=== PATIENT | male | born 1960 | race Hispanic/Latino ===

== ENCOUNTER 2017-03-25 07:07 | Emergency (ER) | payer MEDICARE ==
[~2017-03-25] VITALS: Ht 182.9 cm; Wt 127.0 kg
[~2017-03-25 07:07] MED LIST: ACTOS45 MG PO; ATORVASTATIN CA80 MG PO; CLARITIN10 MG PO; DILAUDID 11 MG/1 ML IV; DILAUDID 22 MG/1 ML IV; FLAGYL500 MG PO; GLYBURIDE-METF1 EAC1 PO; KEFLEX500 MG PO; METFORMIN HCL1000 MG PO; METOPROLOL TART25 MG PO; NITROSTAT0.4 MG SL; PLAVIX75 MG PO; SIMVASTATIN40 MG PO; VANCOMYCIN IV; VASOTEC5 M1 PO; XODOL 5-300 TA1 EACH; mvi PO
[2017-03-25] MEDS ORDERED: ALBUTEROL SULF 0.083% NEB SOLN 3 ML NEB NEB STA (07:59)
[2017-03-25] MEDS ORDERED: IPRATROPIUM BROMIDE 0.02% 2.5 ML NEB NEB ONE (08:00)
[2017-03-25 08:12] LABS: BASOPHILS % 0.6 % (0.0-1.0); EOSINOPHILS # (AUTO) 0.1 (0.0-0.4); EOSINOPHILS % 1.8 % (0.0-6.0); HEMATOCRIT 33.5 % (38.2-49.6); HEMOGLOBIN 10.3 g/dL (14.0-18.0); LYMPHOCYTES # (AUTO) 0.8 (1.0-3.2); LYMPHOCYTES % 16.7 % (18.0-39.1); MEAN CORPUSCULAR HEMOGLOBIN 26.5 pg (28-32); MEAN CORPUSCULAR HGB CONC 30.7 g/dL (31-35); MEAN CORPUSCULAR VOLUME 86.1 fL (81-99); MONOCYTES # (AUTO) 0.6 (0.2-0.8); MONOCYTES % 11.4 % (4.4-11.3); NEUTROPHILS # (AUTO) 3.4 (2.1-6.9); NEUTROPHILS % 69.1 % (38.7-80.0); PLATELET COUNT 192 x10e3/uL (140-360); RED BLOOD COUNT 3.89 x10e6/uL (4.3-5.7); RED CELL DISTRIBUTION WIDTH 15.6 % (11.7-14.4)
[2017-03-25] MEDS ORDERED: METHYLPREDNISOLONE SOD SUCC 125 MG/2ML VIAL IV ONE (08:15)
[2017-03-25 08:16] LABS: INR 0.91; PROTHROMBIN TIME 12.7 seconds (11.9-14.5)
[2017-03-25 08:17] LABS: PARTIAL THROMBOPLASTIN TIME 31.7 seconds (23.8-35.5)
[2017-03-25 08:26] LABS: ALANINE AMINOTRANSFERASE 33 IU/L (0-55); ALBUMIN 3.2 g/dL (3.5-5.0); ALBUMIN/GLOBULIN RATIO 0.7 (0.8-2.0); ALKALINE PHOSPHATASE 97 IU/L (40-150); ANION GAP 14.3 mmol/L (8-16); BLOOD UREA NITROGEN 20 mg/dL (7-26); BUN/CREATININE RATIO 15 (6-25); CARBON DIOXIDE 23 mmol/L (22-29); CHLORIDE 106 mmol/L (98-107); CREATINE KINASE 97 IU/L (30-200); CREATININE, SERUM 1.31 mg/dL (0.72-1.25); EST GLOMERULAR FILTRATION RATE 56 ML/MIN (60-); GLUCOSE 155 mg/dL (74-118); POTASSIUM 4.3 mmol/L (3.5-5.1); SODIUM 139 mmol/L (136-145)
--- NOTE | 2017-03-25 09:51 | Diagnostic Imaging Report ---
PROCEDURE: X-RAY CHEST, TWO VIEWS COMPARISON: 03/13/2013. INDICATIONS: COUGH, WHEEZING FINDINGS: Lung volumes are low with vascular crowding in the lung bases. No gross consolidation, pleural effusion, or pneumothorax. Stable cardiomediastinal contour with mild enlargement of the cardiac silhouette. Pulmonary venous congestion without overt alveolar edema. Multiple median sternotomy wires and mediastinal surgical clips. No acute osseous abnormality. CONCLUSION: Mild cardiomegaly with pulmonary venous congestion. No consolidative pneumonia. Dictated by: Sebastián Stephens M.D. on 03/25/2017 at 9:59 Electronically approved by: Sebastián Stephens M.D. on 03/25/2017 at 9:59
[2017-03-25] MEDS ORDERED: DOXYCYCLINE HYCLATE TABLET 100 MG TAB PO ONE (10:15)
[2017-03-25] MEDS ORDERED: PREDNISONE20 MG PO (10:18)
[2017-03-25] MEDS ORDERED: VENTOLIN HFA18 GM INH (10:18)
[2017-03-25] MEDS ORDERED: DOXYCYCLINE HY100 MG PO (10:18)
[2017-03-25 10:30] VITALS: BP 137/77
== END 2017-03-25 10:44 | disposition home or self-care (01) ==
LOC: ER 07:07
DX: J44.9 Chronic obstructive pulmonary disease, unspecified (principal); I11.0 Hypertensive heart disease with heart failure; I50.9 Heart failure, unspecified; E11.9 Type 2 diabetes mellitus without complications; E66.01 Morbid (severe) obesity due to excess calories; I25.810 Atherosclerosis of coronary artery bypass graft(s) without angina pectoris; Z95.1 Presence of aortocoronary bypass graft
CPT/HCPCS: 36415; 71046; 80053; 82550; 82553; 83605; 83880; 84484; 85025; 85610; 85730; 87040; 87400; 93005; 94640; 99284; J2930

== ENCOUNTER 2017-05-30 07:01 | Emergency (ER) | payer MEDICARE ==
[~2017-05-30] VITALS: Ht 182.9 cm; Wt 129.3 kg
[~2017-05-30 07:01] MED LIST changes: +DOXYCYCLINE HY100 MG PO; +PREDNISONE20 MG PO; +VENTOLIN HFA18 GM INH
--- OUTSIDE RECORDS SUMMARY | 2017-05-30 07:05 | XMS REPORT ---
[facility] Address Unknown Phone Unavailable Care Team Providers Care Store Mgr Name Role Phone MARY YEAGER Unavailable Unavailable Problems This patient has no known problems. Allergies, Adverse Reactions, Alerts This patient has no known allergies or adverse reactions. Medications This patient has no known medications. Encounters Start Date/Time End Date/Time Encounter Type Admission Type Attending Clinicians Care Facility Care Department Encounter ID 2017-05-24 09:24:31 2017-05-24 09:24:31 Outpatient [facility] [id number] 2017-03-29 15:01:27 2017-03-29 15:01:27 Outpatient [facility] [id number] Results Test Description Test Time Test Comments Text Results Atomic Results Result Comments CHEST 2 VIEWS [place] [address] Patient Name: DMITRY ARMSTRONG JR MR #: [id number] : 1960 Age/Sex: 56/M Req #: [id number] Adm Physician: Ordered by: MARY YEAGER MD Report #: [id number] Location: ER Room/Bed: Procedure: [id number] DX/CHEST 2 VIEWS Exam Date: 03/25/17 Exam Time : 0930 REPORT STATUS: Signed PROCEDURE: X-RAY CHEST, TWO VIEWS COMPARISON: 03/13/2013. INDICATIONS: COUGH, WHEEZING FINDINGS: Lung volumes are low with vascular crowding in the lung bases. No gross consolidation, pleural effusion, or pneumothorax. Stable cardiomediastinal contour with mild enlargement of the cardiac silhouette. Pulmonary venous congestion without overt alveolar edema. Multiple median sternotomy wires and mediastinal surgical clips. No acute osseous abnormality. CONCLUSION: Mild cardiomegaly with pulmonary venous congestion. No consolidative pneumonia. Dictated by: Newton Lambert M.D. on 03/25/2017 at 9 :59 Electronically approved by: Newton Lambert M.D. on 03/25/2017 at 9:59 Dictated By: NEWTON LAMBERT MD Transcribed By: SUBHA on 03/25/17958 COPY TO : MARY YEAGER MD
[2017-05-30] MEDS: CLINDAMYCIN PHOS 900MG/ D5W 50 50 ML IV ONE (08:05)
[2017-05-30 08:33] LABS: BASOPHILS % 0.3 % (0.0-1.0); EOSINOPHILS # (AUTO) 0.1 (0.0-0.4); EOSINOPHILS % 1.9 % (0.0-6.0); HEMATOCRIT 27.4 % (38.2-49.6); HEMOGLOBIN 8.4 g/dL (14.0-18.0); LYMPHOCYTES # (AUTO) 0.7 (1.0-3.2); LYMPHOCYTES % 10.6 % (18.0-39.1); MEAN CORPUSCULAR HGB CONC 30.7 g/dL (31-35); MEAN CORPUSCULAR VOLUME 84.8 fL (81-99); MONOCYTES # (AUTO) 0.6 (0.2-0.8); NEUTROPHILS % 77.7 % (38.7-80.0); PLATELET COUNT 257 x10e3/uL (140-360); RED BLOOD COUNT 3.23 x10e6/uL (4.3-5.7); RED CELL DISTRIBUTION WIDTH 15.3 % (11.7-14.4)
[2017-05-30 08:47] LABS: ALBUMIN 2.9 g/dL (3.5-5.0); ALBUMIN/GLOBULIN RATIO 0.7 (0.8-2.0); ANION GAP 11.3 mmol/L (8-16); CALCIUM 8.7 mg/dL (8.4-10.2); CREATININE, SERUM 1.36 mg/dL (0.72-1.25); POTASSIUM 4.3 mmol/L (3.5-5.1)
--- NOTE | 2017-05-30 09:46 | Diagnostic Imaging Report ---
PROCEDURE:X-RAY RIGHT LOWER LEG COMPARISON:None. INDICATIONS:DISTAL LOWER LEG WOUND FINDINGS: Shallow soft tissue defect along the postero-medial lower leg, approximately 5 cm superior to the ankle joint. No cortical erosive or destructive changes of the underlying tibial cortex. There is mild periosteal reaction along the midshaft of the tibia. 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 Osteopenic changes of the talocalcaneal complex. Atherosclerotic vascular calcifications. Stents are noted within the anterior tibial artery and tibioperoneal trunk. CONCLUSION: Shallow soft tissue ulcer along the posteromedial lower leg, without underlying cortical erosive or destructive change. Periosteal reaction along the midshaft of the tibia may relate to chronic venous stasis. MRI of the right lower extremity with and without contrast may be obtained for further evaluation if there is strong clinical concern for chronic osteomyelitis. 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 Advanced atherosclerotic vascular disease. Dictated by: Sebastián Stephens M.D. on 05/30/2017 at 9:46 Electronically approved by: Sebastián Stephens M.D. on 05/30/2017 at 9:46
[2017-05-30 11:11] VITALS: BP 128/65
== END 2017-05-30 11:28 | disposition home or self-care (01) ==
LOC: ER 07:01
DX: L03.115 Cellulitis of right lower limb (principal); I70.238 Atherosclerosis of native arteries of right leg with ulceration of other part of lower leg; L97.819 Non-pressure chronic ulcer of other part of right lower leg with unspecified severity; I10 Essential (primary) hypertension; E11.9 Type 2 diabetes mellitus without complications; Z89.431 Acquired absence of right foot; Z79.02 Long term (current) use of antithrombotics/antiplatelets
CPT/HCPCS: 36415; 80053; 83036; 85025; 86140; 87040; 87071; 87186; 87205; 99284

== ENCOUNTER 2017-07-06 04:31 | Emergency (ER) | payer MEDICARE ==
[~2017-07-06] VITALS: Ht 182.9 cm; Wt 129.3 kg
--- OUTSIDE RECORDS SUMMARY | 2017-07-06 04:36 | XMS REPORT | Continuity of Care Document ---
Author Author [facility] Address [address] [place] [address] Phone Unavailable Care Team Providers Care Deoiling Machine Operator Name Role Phone ESTRELLA KIM MD PCP Insurance Providers Guarantor Caden Armstrong Jr Address [address] [place] [address] Email [email or web address] Payer Medicare A & B Policy Number [id number] Subscriber's Name Caden Armstrong Jr Relationship 18 Self / Same As Patient Effective Date 00 Advance Directives Directive Response Recorded Date/Time Does the patient have an advance directive? Yes 05/21/14 12:08am If yes, is advance directive on file with [facility]? No 10/12/13 2:00pm If not on file with [facility] will patient provide a copy? Yes 10/12/13 2:00pm Do you have a Directive to Physician? No 05/30/17 11:27am Do you have a Medical Power of Block [place]? No 05/30/17 11:27am Do you have an out of hospital Do Not Resuscitate Order? No 05/30/17 11:27am Do you have any special needs we should be aware of? No 05/30/17 11:27am Do you have a support person here with you today? Yes 05/30/17 11:27am Did patient receive Notice of Privacy Practices? Yes 05/30/17 11:27am Did patient receive patient rights and responsibilities? Yes 05/30/17 11:27am Problems Medical Problem Onset Date Status History of diabetic ulcer of foot Unknown Acute Medications Current Home Medications Medication Dose Units Route Directions Days Qty Instructions Start Date Albuterol Sulfate (Ventolin Hfa) 18 Gm Hfa.aer.ad 1-2 Applic Inhalation Q2- 3 Hrs Prn as needed for Shortness Of Breath/Wheezing 1 Unit 03/25/17 Atorvastatin Calcium 80 Mg Tablet 80 Mg Oral Daily Clopidogrel Bisulfate (Plavix) 75 Mg Tablet 75 Mg Oral Daily Doxycycline Hyclate 100 Mg Capsule 100 Mg Oral Twice A Day 20 Tab 03/25/17 Enalapril Maleate (Vasotec) 5 Mg Tablet 5 Mg Oral Twice A Day Glyburide/Metformin Hcl (Glyburide-Metformin 5-500 Mg) 1 Each Tablet 10-1000 Mg Oral Twice Daily With Meals Loratadine (Claritin) 10 Mg Tablet 10 Mg Oral Daily Metoprolol Tartrate 25 Mg Tablet 25 Mg Oral Twice A Day Nitroglycerin (Nitrostat) 0.4 Mg Tab.subl 0.4 Mg Sublingual Every 5 Minutes as needed Pioglitazone Hcl (Actos) 45 Mg Tablet 45 Mg Oral Daily Prednisone 20 Mg Tab 40 Mg Oral Daily 5 Days 10 Tab 03/25/17 Simvastatin 40 Mg Tablet 40 Mg Oral Bedtime Past Home Medications Medication Directions Ordered Status Cephalexin Monohydrate (Keflex) 500 Mg Capsule, 500 Mg Oral Four Times Daily Discontinued Clopidogrel Bisulfate (Plavix) 75 Mg Tablet, 75 Mg Oral Daily Discontinued Hydrocodone Bit/Acetaminophen (Xodol 5-300 Tablet) 1 Each Tablet, As Needed Discontinued Hydromorphone Hcl/Pf (Dilaudid 1 Mg/Ml Ampul) 1 Mg/1 Ml Ampul, 1 Mg Intraven Every 6 Hours as needed Discontinued Hydromorphone Hcl/Pf (Dilaudid 2 Mg/Ml Ampul) 2 Mg/1 Ml Ampul, 2 Mg Intraven Every 6 Hours as needed Discontinued Metformin Hcl 1,000 Mg Tablet, 1000 Mg Oral Twice A Day Discontinued Metronidazole (Flagyl) 500 Mg Tablet, 500 Mg Oral Three Times A Day Discontinued Mvi , 1 Tab Oral Daily Discontinued Vancomycin Hcl (Vancomycin Hcl 1G/200 Ml Bag) 1 G/250 Ml Soln, 1 Gm Intraven Every 12 Hours Discontinued Social History Social History Problem Response Recorded Date/Time Onset Date Status Hx Psychiatric Problems No 10/12/2013 2:00pm Not Applicable Not Applicable Hx Eating Disorder No 10/12/2013 2:00pm Not Applicable Not Applicable Hx Substance Use Disorder No 10/12/2013 2:00pm Not Applicable Not Applicable Hx Depression No 10/12/2013 2:00pm Not Applicable Not Applicable Hx Alcohol Use No 10/12/2013 2:00pm Not Applicable Not Applicable Hx Substance Use Treatment No 10/12/2013 2:00pm Not Applicable Not Applicable Hx Physical Abuse No 10/12/2013 2:00pm Not Applicable Not Applicable Smoking Status Start Date Stop Date Never Smoker Hospital Discharge Instructions No hospital discharge instruction information available. Plan of Care Discharge Date 05/30/17 11:28am Disposition HOME, SELF-CARE Condition at Discharge Stable Instructions/Education Provided Anemia Cellulitis Wound Care (General) Prescriptions See Medication Section Referrals ESTRELLA KIM MD Order Date: Call for an appointment Address: [address] [place] [id number] Additional Instructions/Education Take medication as prescribed Follow up with PCP in 2 days Return to ER if worsening of symptoms Functional Status No functional status information available. Allergies, Adverse Reactions, Alerts No known allergies. Immunizations No immunization information available. Vital Signs Acute Vital Signs Vital Response Date/Time Pulse Pulse Rate (adult) 73 bpm (60 - 90) 05/30/2017 11:11am Respiratory Rate 20 bpm (12 - 24) 05/30/2017 11:11am Blood Pressure 128/65 mm Hg 05/30/2017 11:11am Height 6 ft 0 in 05/30/2017 7:26am Weight 285 lb 05/30/2017 7:26am Body Mass Index 38.7 kg/m^2 05/30/2017 7:26am Results Laboratory Results Test Name Result Units Flags Reference Collection Date/Time Result Date/ Time Comments Prothrombin Time 12.7 seconds 11.9-14.5 03/25/2017 7:55am 03/25/2017 8: 18am Prothromb Time International Ratio 0.91 03/25/2017 7:55am 2017 8:18am Oral Anticoagulant Therapy INR Values: 1. Low Intensity Therapy 1.5 - 2.0 2. Moderate Intensity Therapy 2.0 - 3.0 3. High Intensity Therapy(1) 2.5 - 3.5 4. High Intensity Therapy(2) 3.0 - 4.0 5. Panic Value INR > 5.0 Activated Partial Thromboplast Time 31.7 seconds 23.8-35.5 03/25/2017 7: 55am 03/25/2017 8:18am Influenza Virus Types A,B Antigen NEGATIVE NEGATIVE 03/25/2017 7:35am 03/25/2017 8:55am Lactic Acid Level 11.4 MG/DL 4.5-19.8 03/25/2017 7:55am 03/25/2017 8: 19am B-Type Natriuretic Peptide 363.2 pg/mL H 0-100 03/25/2017 7:55am 2017 8:37am Creatine Kinase 97 IU/L 30-200 03/25/2017 7:55am 03/25/2017 8:28am Creatine Kinase MB 2.00 ng/mL 0.00-5.00 03/25/2017 7:55am 03/25/2017 8: 33am Troponin I 0.029 ng/mL 0-0.300 03/25/2017 7:55am 03/25/2017 8:33am White Blood Count 6.48 x10e3/uL 4.8-10.8 05/30/2017 8:00am 05/30/2017 8 :35am Red Blood Count 3.23 x10e6/uL L 4.3-5.7 05/30/2017 8:00am 05/30/2017 8: 35am Hemoglobin 8.4 g/dL L 14.0-18.0 05/30/2017 8:00am 05/30/2017 8:35am Hematocrit 27.4 % L 38.2-49.6 05/30/2017 8:00am 05/30/2017 8:35am Mean Corpuscular Volume 84.8 fL 81-99 05/30/2017 8:00am 05/30/2017 8: 35am Mean Corpuscular Hemoglobin 26.0 pg L 28-32 05/30/2017 8:00am 2017 8:35am Mean Corpuscular Hemoglobin Concent 30.7 g/dL L 31-35 05/30/2017 8:00am 05/30/2017 8:35am Red Cell Distribution Width 15.3 % H 11.7-14.4 05/30/2017 8:00am 2017 8:35am Platelet Count 257 x10e3/uL 140-360 05/30/2017 8:00am 05/30/2017 8: 35am Neutrophils (%) (Auto) 77.7 % 38.7-80.0 05/30/2017 8:00am 05/30/2017 8: 35am Lymphocytes (%) (Auto) 10.6 % L 18.0-39.1 05/30/2017 8:00am 05/30/2017 8 :35am Monocytes (%) (Auto) 9.0 % 4.4-11.3 05/30/2017 8:00am 05/30/2017 8: 35am Eosinophils (%) (Auto) 1.9 % 0.0-6.0 05/30/2017 8:00am 05/30/2017 8: 35am Basophils (%) (Auto) 0.3 % 0.0-1.0 05/30/2017 8:00am 05/30/2017 8:35am IM GRANULOCYTES % 0.5 % 0.0-1.0 05/30/2017 8:00am 05/30/2017 8:35am Neutrophils # (Auto) 5.0 2.1-6.9 05/30/2017 8:00am 05/30/2017 8:35am Lymphocytes # (Auto) 0.7 L 1.0-3.2 05/30/2017 8:00am 05/30/2017 8: 35am Monocytes # (Auto) 0.6 0.2-0.8 05/30/2017 8:00am 05/30/2017 8:35am Eosinophils # (Auto) 0.1 0.0-0.4 05/30/2017 8:00am 05/30/2017 8:35am Basophils # (Auto) 0.0 0.0-0.1 05/30/2017 8:00am 05/30/2017 8:35am Absolute Immature Granulocyte (auto 0.03 x10e3/uL 0-0.1 05/30/2017 8: 00am 05/30/2017 8:35am Sodium Level 138 mmol/L 136-145 05/30/2017 8:00am 05/30/2017 9:04am Potassium Level 4.3 mmol/L 3.5-5.1 05/30/2017 8:00am 05/30/2017 9:04am Chloride Level 104 mmol/L 98-107 05/30/2017 8:00am 05/30/2017 9:04am Carbon Dioxide Level 27 mmol/L 22-29 05/30/2017 8:00am 05/30/2017 9: 04am Anion Gap 11.3 mmol/L 8-05/30/2017 8:00am 05/30/2017 9:04am Blood Urea Nitrogen 23 mg/dL 7-05/30/2017 8:00am 05/30/2017 9:04am Creatinine 1.36 mg/dL H 0.72-1.25 05/30/2017 8:00am 05/30/2017 9:04am BUN/Creatinine Ratio 17 605/30/2017 8:00am 05/30/2017 9:04am Estimat Glomerular Filtration Rate 54 ML/MIN L 60- 05/30/2017 8:00am 9:04am Ranges were taken from the National Kidney Disease Education Program and the National Kid[employer] Foundation literature. Reference ranges: 60 or greater: Normal 16-59 (for 3 consecutive months): Chronic kidney disease 15 or less: Kidney failure Glucose Level 188 mg/dL H 74-118 05/30/2017 8:00am 05/30/2017 9:04am Calcium Level 8.7 mg/dL 8.4-10.2 05/30/2017 8:00am 05/30/2017 9:04am Hemoglobin A1c Percent 7.5 % H 4.0-7.0 05/30/2017 8:00am 05/30/2017 9: 04am Total Bilirubin 0.5 mg/dL 0.2-1.2 05/30/2017 8:00am 05/30/2017 9:04am Aspartate Amino Transf (AST/SGOT) 17 IU/L 5-34 05/30/2017 8:00am 2017 9:04am Alanine Aminotransferase (ALT/SGPT) 16 IU/L 0-55 05/30/2017 8:00am 9:04am Total Protein 7.1 g/dL 6.5-8.1 05/30/2017 8:00am 05/30/2017 9:04am Albumin 2.9 g/dL L 3.5-5.0 05/30/2017 8:00am 05/30/2017 9:04am Globulin 4.2 g/dL H 2.3-3.5 05/30/2017 8:00am 05/30/2017 9:04am Albumin/Globulin Ratio 0.7 L 0.8-2.0 05/30/2017 8:00am 05/30/2017 9: 04am Alkaline Phosphatase 82 IU/L 40-150 05/30/2017 8:00am 05/30/2017 9: 04am Microbiology Results Procedure Source Organism/Result Collection Date/Time Result Date/Time Result Status Blood Culture Blood NO GROWTH AFTER 5 DAYS, FINAL REPORT 03/25/2017 7:55am 03/30/2017 8:05am Final Procedures Procedure Status Date Provider(s) X-ray of chest, two views Active 03/25/17 MARY YEAGER MD Encounters Encounter Location Arrival/Admit Date Discharge/Depart Date Attending Provider Departed Emergency Room [facility] 05/30/17 7:01am 11:28am STACY ALLISON MD Departed Emergency Room [facility] 03/25/17 7:07am 10:44am MARY YEAGER MD
[2017-07-06 05:31] LABS: BASOPHILS % 0.5 % (0.0-1.0); EOSINOPHILS # (AUTO) 0.1 (0.0-0.4); EOSINOPHILS % 1.4 % (0.0-6.0); HEMOGLOBIN 9.3 g/dL (14.0-18.0); LYMPHOCYTES # (AUTO) 0.4 (1.0-3.2); LYMPHOCYTES % 6.7 % (18.0-39.1); MEAN CORPUSCULAR HEMOGLOBIN 26.1 pg (28-32); MONOCYTES # (AUTO) 0.5 (0.2-0.8); MONOCYTES % 7.8 % (4.4-11.3); NEUTROPHILS # (AUTO) 4.9 (2.1-6.9); NEUTROPHILS % 83.1 % (38.7-80.0); PLATELET COUNT 173 x10e3/uL (140-360); RED BLOOD COUNT 3.57 x10e6/uL (4.3-5.7); RED CELL DISTRIBUTION WIDTH 17.6 % (11.7-14.4)
[2017-07-06 05:53] LABS: ALANINE AMINOTRANSFERASE 16 IU/L (0-55); ALBUMIN 3.3 g/dL (3.5-5.0); ALBUMIN/GLOBULIN RATIO 0.8 (0.8-2.0); ALKALINE PHOSPHATASE 92 IU/L (40-150); ANION GAP 14.4 mmol/L (8-16); BLOOD UREA NITROGEN 25 mg/dL (7-26); BUN/CREATININE RATIO 18 (6-25); CALCIUM 9.1 mg/dL (8.4-10.2); CARBON DIOXIDE 24 mmol/L (22-29); CHLORIDE 104 mmol/L (98-107); CREATINE KINASE 116 IU/L (30-200); EST GLOMERULAR FILTRATION RATE 52 ML/MIN (60-); GLUCOSE 241 mg/dL (74-118); POTASSIUM 4.4 mmol/L (3.5-5.1); SODIUM 138 mmol/L (136-145)
[2017-07-06 05:55] LABS: INFLUENZAE A&B ANTIGEN (RAPID) NEGATIVE (NEGATIVE); STREPTOCOCCUS GRP A ANTIGEN NEGATIVE (NEGATIVE)
--- NOTE | 2017-07-06 05:56 | Diagnostic Imaging Report ---
EXAM: CHEST 2 VIEWS, PA and lateral INDICATION: Cough COMPARISON: None FINDINGS: LINES/TUBES: Right approach PICC terminates at the expected location of the atriocaval junction. LUNGS: No consolidations or edema. PLEURA: No effusions or pneumothorax. HEART AND MEDIASTINUM: Enlargement of the cardiomediastinal silhouette. BONES AND SOFT TISSUES: No acute findings. IMPRESSION: No acute thoracic abnormality. Signed by: Dr. Siobhan Ring M.D. on 07/06/2017 5:52 AM
== END 2017-07-06 06:26 | disposition home or self-care (01) ==
LOC: ER 04:31
DX: R05 Cough (principal); J20.8 Acute bronchitis due to other specified organisms
CPT/HCPCS: 36415; 71046; 80053; 82550; 82553; 83518; 84484; 85025; 87070; 87400; 99284

== ENCOUNTER 2018-08-22 19:52 | Emergency (ER) | payer MEDICARE ==
[~2018-08-22] VITALS: Ht 182.9 cm; Wt 129.3 kg
[2018-08-22 20:56] LABS: BASOPHILS % 0.4 % (0.0-1.0); EOSINOPHILS # (AUTO) 0.1 (0.0-0.4); EOSINOPHILS % 1.5 % (0.0-6.0); HEMATOCRIT 36.4 % (38.2-49.6); LYMPHOCYTES # (AUTO) 1.1 (1.0-3.2); LYMPHOCYTES % 14.6 % (18.0-39.1); MEAN CORPUSCULAR HEMOGLOBIN 26.8 pg (28-32); MEAN CORPUSCULAR VOLUME 81.4 fL (81-99); MONOCYTES # (AUTO) 0.6 (0.2-0.8); MONOCYTES % 7.8 % (4.4-11.3); NEUTROPHILS # (AUTO) 5.5 (2.1-6.9); NEUTROPHILS % 75.3 % (38.7-80.0); PLATELET COUNT 223 x10e3/uL (140-360); RED BLOOD COUNT 4.47 x10e6/uL (4.3-5.7); RED CELL DISTRIBUTION WIDTH 15.3 % (11.7-14.4)
--- NOTE | 2018-08-22 21:12 | Diagnostic Imaging Report ---
EXAMINATION: CHEST SINGLE (PORTABLE) INDICATION: ^ERMD ORDER ^[id number] ^1947 ^Y COMPARISON: 07/06/2017 FINDINGS: AP view TUBES and LINES: There is a lead projecting over the superior left heart, probably a distal lead of left lower chest wall cardiac device. LUNGS: Limited by body habitus. Lungs are well inflated. Central vascular congestion and mild interstitial edema. PLEURA: No pleural effusion or pneumothorax. HEART AND MEDIASTINUM: The cardiac silhouette is enlarged on this AP view. Median sternotomy wires and mediastinal surgical clips are seen. BONES AND SOFT TISSUES: No acute osseous lesion. Degenerative changes of bilateral shoulder joints. Soft tissues are unremarkable. UPPER ABDOMEN: No free air under the diaphragm. IMPRESSION: Enlarged cardiac silhouette, central vascular congestion, and mild interstitial edema. Signed by: Dr. Stu Rodriguez MD on 08/22/2018 9:09 PM
[2018-08-22 21:14] LABS: ALBUMIN 3.5 g/dL (3.5-5.0); ALBUMIN/GLOBULIN RATIO 0.8 (0.8-2.0); ANION GAP 15.5 mmol/L (8-16); CALCIUM 9.5 mg/dL (8.4-10.2); CREATININE, SERUM 2.01 mg/dL (0.72-1.25); POTASSIUM 3.5 mmol/L (3.5-5.1)
[2018-08-22 21:21] LABS: CREATINE KINASE MB 1.6 ng/mL (0-5.0)
[2018-08-22] MEDS ORDERED: FUROSEMIDE INJ 10 MG/ML 4 ML VIAL IV ONE (23:00)
--- NOTE | 2018-08-23 01:37 | Diagnostic Imaging Report ---
Ventilation/perfusion Lung Scan Clinical Information: Difficulty breathing Comparison: CXR single view of the same date Discussion: Xenon-133 in a gaseous state 10.3 mCi was administered via inhalation with an initial wash in, re-breathing equilibrium, and delayed washout images obtained in the posterior projection. Distribution of tracer activity appears physiologic throughout the lungs. There are no segmental ventilatory defects or washout abnormalities to indicate diffuse to regional airways disease. Perfusion images of the lungs were obtained in multiple projections following intravenous administration of approximately 6 mCi of Tc-99m MAA. Distribution of tracer appears physiologic throughout the lungs. The contours of the lungs are well demarcated. There are no segmental perfusion defects of any size. Impression: Scan findings represent a VERY LOW probability for acute pulmonary embolic disease based on the PIOPED II Criteria. Signed by: Dr. Stu Rodriguez MD on 08/23/2018 1:33 AM
[2018-08-23] MEDS ORDERED: LASIX40 MG PO (01:47)
[2018-08-23 02:30] VITALS: BP 116/88
== END 2018-08-23 02:50 | disposition home or self-care (01) ==
LOC: ER 19:52
DX: R06.09 Other forms of dyspnea (principal); I10 Essential (primary) hypertension; E11.9 Type 2 diabetes mellitus without complications; I50.9 Heart failure, unspecified; Z95.1 Presence of aortocoronary bypass graft
CPT/HCPCS: 36415; 71045; 78582; 80053; 82550; 82553; 82948; 83880; 84484; 85025; 85379; 93005; 99284; J1940

== ENCOUNTER 2019-02-05 17:23 | Inpatient (IN) | payer MEDICARE ==
[~2019-02-05] VITALS: Ht 182.9 cm; Wt 129.3 kg
[~2019-02-05 17:23] MED LIST changes: +LASIX40 MG PO
[2019-02-05] MEDS ORDERED: SODIUM CHLORIDE 0.9% 1000ML 1,000 ML IV STA ×3 (18:01→18:22)
[2019-02-05] MEDS ORDERED: PIPER-TAZ 3.375 GM 50 ML IV ONE (18:01)
[2019-02-05] MEDS ORDERED: MORPHINE SULFATE INJ 4 MG/ML INJ 1ML IV ONE (18:01)
[2019-02-05] MEDS ORDERED: FAMOTIDINE 20 MG/2 ML VIAL IV ONE (18:01)
[2019-02-05] MEDS ORDERED: ONDANSETRON HCL INJ 2MG/ML 2ML 2 MG/ML VIAL IV ONE (18:01)
[2019-02-05] MEDS ORDERED: ACETAMINOPHEN 325 MG TAB PO ONE (18:01)
[2019-02-05] MEDS ORDERED: DEXTROSE 50% SYRINGE 50 ML IV PRN (18:15)
[2019-02-05] MEDS ORDERED: ONDANSETRON HCL INJ 2MG/ML 2ML 2 MG/ML VIAL IV PRN (18:15)
[2019-02-05] MEDS ORDERED: VANCOMYCIN 1GM/NS 250 ML 250 ML IV SCH (18:15)
[2019-02-05] MEDS ORDERED: MORPHINE SULFATE 2 MG/ML SYR 1ML IV PRN (18:20)
[2019-02-05] MEDS ORDERED: VANCOMYCIN 1GM/NS 250 ML 250 ML IV ONE (19:00)
[2019-02-05 19:10] LABS: BASOPHILS % 0.3 % (0.0-1.0); EOSINOPHILS # (AUTO) 0.1 (0.0-0.4); EOSINOPHILS % 0.8 % (0.0-6.0); HEMATOCRIT 30.8 % (38.2-49.6); HEMOGLOBIN 9.5 g/dL (14.0-18.0); LYMPHOCYTES # (AUTO) 0.4 (1.0-3.2); LYMPHOCYTES % 5.7 % (18.0-39.1); MEAN CORPUSCULAR HEMOGLOBIN 26.4 pg (28-32); MEAN CORPUSCULAR HGB CONC 30.8 g/dL (31-35); MEAN CORPUSCULAR VOLUME 85.6 fL (81-99); MONOCYTES # (AUTO) 0.4 (0.2-0.8); MONOCYTES % 6.3 % (4.4-11.3); NEUTROPHILS # (AUTO) 5.6 (2.1-6.9); NEUTROPHILS % 86.3 % (38.7-80.0); PLATELET COUNT 197 x10e3/uL (140-360); RED CELL DISTRIBUTION WIDTH 14.3 % (11.7-14.4)
[2019-02-05 19:21] LABS: PARTIAL THROMBOPLASTIN TIME 38.2 seconds (23.8-35.5); PROTHROMBIN TIME 13.7 seconds (11.9-14.5)
[2019-02-05 19:34] LABS: ALBUMIN 2.8 g/dL (3.5-5.0); ALBUMIN/GLOBULIN RATIO 0.6 (0.8-2.0); ANION GAP 11.9 mmol/L (8-16); CALCIUM 8.5 mg/dL (8.4-10.2); CREATININE, SERUM 1.35 mg/dL (0.72-1.25); MAGNESIUM 1.8 MG/DL (1.3-2.1); POTASSIUM 3.9 mmol/L (3.5-5.1)
[2019-02-05 19:53] LABS: CREATINE KINASE MB 9.7 ng/mL (0-5.0); THYROID STIMULATING HORMONE 3.345 uIU/mL (0.350-4.940)
--- NOTE | 2019-02-05 20:39 | Diagnostic Imaging Report ---
EXAM: CHEST SINGLE (PORTABLE) DATE: 02/05/2019 6:01 PM INDICATION: Lower back pain ^ERMD ORDER ^[id number] ^1900 ^Y COMPARISON: Chest x-ray, 08/22/2018 FINDINGS: Lines and tubes: Apparent cardiac lead is again seen projecting over the superior left heart. Position is stable. Cardiac silhouette is at upper normal size. There is mild central pulmonary vascular prominence. No focal consolidation, pleural effusion or pneumothorax. Upper abdomen unremarkable. Wire sternotomy sutures are again noted. IMPRESSION: Borderline heart size with central pulmonary vascular prominence. No consolidation or pleural effusion. Signed by: Dr. Taj Martin M.D. on 02/05/2019 8:35 PM
--- NOTE | 2019-02-05 20:50 | Diagnostic Imaging Report ---
EXAM: CT Abdomen and Pelvis WITHOUT contrast INDICATION: Lower back pain ^STONE PROTOCOL ^[id number] ^1900 ^Y COMPARISON: None. TECHNIQUE: Abdomen and pelvis were scanned utilizing a multidetector helical scanner from the lung base to the pubic symphysis without administration of IV contrast. Absence of intravenous contrast decreases sensitivity for detection of focal lesions and vascular pathology. Coronal and sagittal reformations were obtained. Renal stone protocol was performed. Dose modulation, iterative reconstruction, and/or weight based adjustment of the mA/kV was utilized to reduce the radiation dose to as low as reasonably achievable. IV CONTRAST: None. ORAL CONTRAST: None RADIATION DOSE: Total DLP: 931.90 mGy*cm Estimated effective dose: (DLP x 0.015 x size factor) mSv COMPLICATIONS: None FINDINGS: LINES and TUBES: There is a generator device implanted in the subcutaneous tissues of the lower left chest with an electrode extending anterior to the sternum. There is partial visualization of wire sternotomy sutures. LOWER THORAX: Lung bases are clear. Heart size normal with coronary artery calcifications seen. HEPATOBILIARY: No focal hepatic lesions. No biliary ductal dilation. GALLBLADDER: The gallbladder is distended measuring approximately 12.1 cm in length. A small opaque gallstone is seen as well as layering radiopaque sludge. There is no gallbladder wall thickening or pericholecystic inflammatory change seen. SPLEEN: No splenomegaly. PANCREAS: No focal masses or ductal dilatation. ADRENALS: No adrenal nodules KIDNEYS/URETERS: No hydronephrosis. No cystic or solid contour deforming mass lesions. There are calcifications related to the central portions of both kidneys, mostly vascular. Punctate nonobstructing intrarenal calculi are likely also present. There is mild fat stranding surrounding both kidneys and proximal portions of the ureters. GI TRACT: No abnormal distention, wall thickening, or evidence of bowel obstruction. Appendix is normal. PELVIC ORGANS/BLADDER: There is mild wall thickening of the urinary bladder. No discrete abnormal mass or fluid collection in the pelvis. LYMPH NODES: No dominant lymph node mass is seen in the abdomen, retroperitoneum or pelvis. VESSELS: There is extensive atherosclerotic calcified plaque involving the abdominal aorta and aortic branches. No dilatation of the abdominal aorta. PERITONEUM / RETROPERITONEUM: No pneumoperitoneum or ascites. BONES: No acute or suspicious bony lesions. SOFT TISSUES: Superficial surrounding soft tissue shows a fat-containing midline ventral hernia with a 4.9 cm wall defect in the upper abdomen. IMPRESSION: 1. Cholelithiasis with gallbladder hydrops and mildly radiopaque layering sludge in the gallbladder. No wall thickening or specific evidence for acute cholecystitis. 2. Punctate nonobstructing intrarenal calculi. No hydronephrosis. There is mild fat stranding surrounding both kidneys and proximal ureters, with wall thickening of the bladder. Urinary tract infection is a consideration. 3. There is marked calcific atherosclerotic plaque of the abdominal aorta and all branch vessels in the abdomen. No aortic aneurysm. Staff: Mario Signed by: Dr. Taj Martin M.D. on 02/05/2019 8:46 PM
[2019-02-05] MEDS: INSULIN REGULAR, HUMAN 100 UNIT/1 ML 3ML VIAL SQ SCH (21:27)
[2019-02-05] MEDS: SODIUM CHLORIDE 0.9% 1000ML 1,000 ML IV SCH (21:27)
[2019-02-05] MEDS ORDERED: NITROGLYCERIN 0.4 MG SL PRN (21:45)
[2019-02-05] MEDS ORDERED: ALBUTEROL SULFATE HFA 8GM INHALATION AEROSOL INH PRN (21:45)
[2019-02-05] MEDS ORDERED: NITROGLYCERIN 0.4 MG SUBL SL PRN (22:00)
[2019-02-06] MEDS: ENOXAPARIN SOD INJ 40 MG/0.4 ML SYR SC SCH ×3 (01:30→17:00)
[2019-02-06] MEDS: PIPERACILLIN/TAZO 4.5 GM 100 ML IV SCH ×4 (01:40→21:30)
[2019-02-06 02:36] LABS: BASOPHILS % 0.5 % (0.0-1.0); EOSINOPHILS # (AUTO) 0.1 (0.0-0.4); HEMATOCRIT 28.5 % (38.2-49.6); LYMPHOCYTES # (AUTO) 0.5 (1.0-3.2); MEAN CORPUSCULAR HEMOGLOBIN 26.9 pg (28-32); MEAN CORPUSCULAR HGB CONC 31.6 g/dL (31-35); MEAN CORPUSCULAR VOLUME 85.3 fL (81-99); MONOCYTES # (AUTO) 0.4 (0.2-0.8); MONOCYTES % 8.6 % (4.4-11.3); NEUTROPHILS # (AUTO) 3.2 (2.1-6.9); NEUTROPHILS % 77.2 % (38.7-80.0); PLATELET COUNT 171 x10e3/uL (140-360); RED BLOOD COUNT 3.34 x10e6/uL (4.3-5.7); RED CELL DISTRIBUTION WIDTH 14.5 % (11.7-14.4)
[2019-02-06 03:08] LABS: CREATINE KINASE MB 5.8 ng/mL (0-5.0)
[2019-02-06 03:20] LABS: ANION GAP 10.8 mmol/L (8-16); CREATININE, SERUM 1.29 mg/dL (0.72-1.25); POTASSIUM 3.8 mmol/L (3.5-5.1)
[2019-02-06 03:31] LABS: MAGNESIUM 1.8 MG/DL (1.3-2.1); PHOSPHORUS 3.3 MG/DL (2.3-4.7)
[2019-02-06] MEDS: SODIUM CHLORIDE 0.9% 1000ML 1,000 ML IV SCH ×2 (05:36→10:58)
[2019-02-06] MEDS ORDERED: VANCOMYCIN 1GM/NS 250 ML 250 ML IV SCH (07:00)
[2019-02-06] MEDS ORDERED: INSULIN REGULAR, HUMAN 100 UNIT/1 ML 3ML VIAL IV ONE (07:30)
[2019-02-06 08:00] LABS: BILIRUBIN,URINE NEGATIVE (NEGATIVE); CLARITY,URINE CLEAR (CLEAR); COLOR,URINE YELLOW (YELLOW); KETONES,URINE NEGATIVE (NEGATIVE); LEUKOCYTE ESTERASE ,URINE NEGATIVE (NEGATIVE); NITRITE,URINE NEGATIVE (NEGATIVE); PROTEIN,URINE DIPSTICK NEGATIVE (NEGATIVE); URINE UROBILINOGEN 0.2 mg/dL (0.2 - 1)
[2019-02-06 08:08] LABS: BACTERIA,URINE RARE /HPF; EPITHELIAL CELLS,URINE FEW /LPF; RBC,URINE 0-5 /HPF (0-5); WBC,URINE (MAN) 0-5 /HPF (0-5)
[2019-02-06] MEDS: INSULIN REGULAR, HUMAN 100 UNIT/1 ML 3ML VIAL SQ SCH ×4 (08:28→21:05)
[2019-02-06] MEDS: LORATADINE 10 MG TAB PO SCH (08:49)
[2019-02-06] MEDS: FAMOTIDINE 20 MG/2 ML VIAL IV SCH ×2 (08:49→16:59)
[2019-02-06] MEDS: METOPROLOL TARTRATE 25 MG TAB PO SCH ×2 (08:49→17:00)
[2019-02-06] MEDS: CLOPIDOGREL BISULFATE 75 MG TAB PO SCH (08:49)
[2019-02-06] MEDS: ATORVASTATIN 40 MG TAB PO SCH (08:49)
--- NOTE | 2019-02-06 08:50 | NUR ---
PT HAS WOUND TO RIGHT STUB
[2019-02-06] MEDS ORDERED: NON-FORMULARY MEDICATION (Atorvastatin Calcium 80 MG) PO SCH (09:00)
[2019-02-06 09:25] LABS: CREATINE KINASE MB 3.8 ng/mL (0-5.0)
--- NOTE | 2019-02-06 09:35 | NUR ---
dr malone at pt bedside
--- NOTE | 2019-02-06 10:12 | NUR ---
DR HELMS AT PT BEDSIDE
--- NOTE | 2019-02-06 11:23 | NUR ---
pt states he wants to speak with dr lugo concerning possible surgery before signing consents
--- NOTE | 2019-02-06 11:29 | NUR ---
dr lugo called back and states he will talk with pt again concerning surgery after already having spoken to pt about it and what to expect and explaining to pt that pt had an mi dr lugo said to hold off on signing consents today
--- NOTE | 2019-02-06 12:20 | Progress Note ---
DATE: 02/06/2019 Cardiology Consultation REASON FOR CONSULTATION: NSTEMI. HISTORY OF PRESENT ILLNESS: Mr. Chambers is a 58-year-old man with a history of morbid obesity, coronary artery disease status post four vessel aortocoronary bypass, diabetes mellitus, hypertension, peripheral arterial disease with previous revascularization done several years prior to right lower extremity and status post right TMA versus [place] amputation with wound dehiscence, who presents with malaise, fatigue and reported generalized discomfort. He was noted to have elevated cardiac biomarkers with a peak CK of 109, peak CK-MB of 9.7, trending down and a peak troponin of 2.61, now trending down in the setting of a creatinine of 1.29 and a hemoglobin of 9. He has no other current complaints. REVIEW OF SYSTEMS: A 12-system review is negative except for as noted above. ALLERGIES: NO KNOWN DRUG ALLERGIES. PAST MEDICAL HISTORY: Remarkable for diabetes, hypertension, PVD, CAD, status post ICD. SOCIAL HISTORY: No smoking, alcohol, or drugs. FAMILY HISTORY: Significant for hypertension, heart disease. PHYSICAL EXAMINATION: VITAL SIGNS: Temperature 98.8, heart rate 81, respiratory rate 14, blood pressure 134/68, O2 saturation 98%. GENERAL: In no acute distress, alert. NECK: No JVD. CHEST: Clear to auscultation. CARDIOVASCULAR: Regular rate and rhythm. Normal S1, S2. No S3 or S4. Systolic ejection murmur 1/6. Sternotomy scar. ABDOMEN: Soft, nontender. Bowel sounds positive. EXTREMITIES: Trace edema. Warm distal extremities. Right foot stump covered with dressings. CARDIOVASCULAR MEDICATIONS: Reviewed vancomycin, Lovenox 40 mg subcu q.12 hours, metoprolol tartrate 25 mg b.i.d., atorvastatin 80 mg at bedtime, clopidogrel 75 mg daily, nitroglycerin. LABORATORY STUDIES: Reviewed. White blood cells 4.09, hemoglobin 9 platelets 171. PT 13.7, INR 1, PTT 38.2. Sodium 133, potassium 3.8, chloride 105, bicarbonate 21, BUN 24, creatinine 1.29, glucose 192, calcium 8, magnesium 1.8, phosphorus 3.3. Cardiac biomarkers most recent CK 78, CK-MB 3.8, and troponin I 1.698 and TSH 3.6. Please refer to HPI for peak troponin and cardiac biomarkers. Urine culture and blood cultures are sent and pending. Chest x-ray is remarkable for borderline heart size with central pulmonary vascular congestion. No consolidation or pleural effusion. Cardiac leads noted. CT abdomen with cholelithiasis with gallbladder hydrops and mildly radiopaque layering sludge in the gallbladder. No wall thickening or specific evidence for acute cholecystitis. There is also punctate, nonobstructing intrarenal calculi. No hydronephrosis. There is mild fat stranding surrounding both kidneys and proximal ureters with wall thickening of the bladder, this may represent urine tract infection. There is marked calcific atherosclerotic plaque of the abdominal aorta and all branch vessels in the abdomen. There is no aortic aneurysm. EKG, sinus rhythm with nonspecific repolarization abnormality. ASSESSMENT: 1. Pud-YP-kdeaxbfpn myocardial infarction. 2. Coronary artery disease with history of bypass. 3. Status post cardiac device. 4. Suspect chronic heart failure. The patient is unclear about this. 5. Diabetes and hypertension. 6. Peripheral vascular disease with previous remote revascularization to the right lower extremity, presenting with wound dehiscences of the right foot stump. 7. Malaise, fatigue, concern for underlying infection. RECOMMENDATIONS: 1. Obtain echocardiogram. 2. Monitor cultures for results. 3. Consider ID consultation. 4. Regarding NSTEMI antiplatelets, statin, beta-kal, Lovenox is advised. 5. Coronary angiography and graft angiography and possible intervention discussed with patient on this admission we will make arrangements. Thank you for the opportunity to participate in the care Mr. Chambers. MD DAMEON Hughes/[facility] /[id number]
--- NOTE | 2019-02-06 14:15 | NUR ---
PT RECEIVED FROM ER. YANNA. EDUCATED PT ABOUT FALL PRECAUTIONS. CALL LIGHT WITH IN EASY REACH. INSTRUCTED PT TO USE CALL LIGHT FOR ALL THE NEEDS. PT VERBALIZED UNDERSTANDING. BED IS LOW AND LOCKED. SIDE RAILS X2. BED ALARM IS ON. PT DENIES NEEDS AT THIS TIME.
[2019-02-06 14:30] VITALS: BP 109/50
[2019-02-06 15:45] VITALS: BP 109/50
[2019-02-06 16:58] VITALS: BP 124/80
--- NOTE | 2019-02-06 18:30 | NUR ---
HEART CATH CONSENT NOT SIGNED. PT WILL TALK TO THE DOCTOR BEFORE SIGN THE CONSENT.
--- NOTE | 2019-02-06 19:00 | NUR ---
BEDSIDE SHIFT REPORT GIVEN TO THE ADMINISTRATOR HEALTH CARE FACILITY RN. PT DENIED FURTHER NEEDS.
--- NOTE | 2019-02-06 19:00 | NUR ---
PAGED DR. HELMS REGARDING PT CONSULT.
--- NOTE | 2019-02-06 19:17 | NUR ---
CALL BACK FROM DR. HELMS. NO PROCEDURE FOR TOMORROW. WILL COME AND TALK TO THE PT TOMORROW.
--- NOTE | 2019-02-06 19:25 | NUR ---
Patient received sitting up in bed. AAO x 4 . Patient had no c/o pain. No signs of respiratory distress. IVF infusing at 50 cc/hr. Safety measures implemented. Patient instructed to call for assistance when needed. Call light within reach.
[2019-02-06] MEDS ORDERED: FERROUS SULFAT324 MG (19:54)
[2019-02-06] MEDS ORDERED: LEVEMIR100 UNIT/1 (19:54)
[2019-02-06] MEDS ORDERED: K DUR10 MEQ PO (19:54)
[2019-02-06] MEDS ORDERED: FOLIC ACID0.4 MG (19:54)
[2019-02-06 19:58] LABS: CREATINE KINASE MB 2.1 ng/mL (0-5.0)
[2019-02-06 20:03] VITALS: BP 143/62
--- NOTE | 2019-02-06 20:12 | NUR ---
Dr. Peng paged regarding elevated Troponin level of 1.49. Awaiting call back.
[2019-02-06 21:00] VITALS: BP 143/62
--- NOTE | 2019-02-06 21:40 | NUR ---
Patient's IV on right hand infiltrated. Old IV removed with tip intact. New IV inserted in right forearm 20G. Patient tolerated well.
[2019-02-06] MEDS: VANCOMYCIN 1GM/NS 250 ML 250 ML IV SCH (22:00)
[2019-02-06] MEDS: MORPHINE SULFATE INJ 4 MG/ML INJ 1ML IV PRN (22:21)
[2019-02-07] VITALS (8 sets, daily range): BP systolic 124–149; BP diastolic 56–71
[2019-02-07] MEDS: PIPERACILLIN/TAZO 4.5 GM 100 ML IV SCH ×4 (03:45→21:00)
[2019-02-07 06:14] LABS: ALBUMIN 2.4 g/dL (3.5-5.0); ALBUMIN/GLOBULIN RATIO 0.6 (0.8-2.0); ANION GAP 14.2 mmol/L (8-16); CALCIUM 7.9 mg/dL (8.4-10.2); CREATININE, SERUM 1.27 mg/dL (0.72-1.25); POTASSIUM 4.2 mmol/L (3.5-5.1)
[2019-02-07] MEDS: SODIUM CHLORIDE 0.9% 1000ML 1,000 ML IV SCH (06:42)
[2019-02-07 06:44] LABS: BASOPHILS % 0.5 % (0.0-1.0); EOSINOPHILS # (AUTO) 0.1 (0.0-0.4); EOSINOPHILS % 3.3 % (0.0-6.0); HEMATOCRIT 28.1 % (38.2-49.6); HEMOGLOBIN 8.7 g/dL (14.0-18.0); LYMPHOCYTES # (AUTO) 0.7 (1.0-3.2); LYMPHOCYTES % 18.9 % (18.0-39.1); MEAN CORPUSCULAR HEMOGLOBIN 26.5 pg (28-32); MEAN CORPUSCULAR VOLUME 85.7 fL (81-99); MONOCYTES # (AUTO) 0.5 (0.2-0.8); MONOCYTES % 13.3 % (4.4-11.3); NEUTROPHILS # (AUTO) 2.5 (2.1-6.9); NEUTROPHILS % 63.5 % (38.7-80.0); PLATELET COUNT 138 x10e3/uL (140-360); RED BLOOD COUNT 3.28 x10e6/uL (4.3-5.7); RED CELL DISTRIBUTION WIDTH 14.5 % (11.7-14.4)
[2019-02-07 06:56] LABS: INR 1.06; PROTHROMBIN TIME 14.3 seconds (11.9-14.5)
--- NOTE | 2019-02-07 07:00 | NUR ---
BEDSIDE SHIFT REPORT RECEIVED FROM THE BRAIDING OPERATOR RN. EDUCATED PT ABOUT FALL PRECAUTIONS. CALL LIGHT WITH IN EASY REACH. INSTRUCTED PT TO USE CALL LIGHT FOR ALL THE NEEDS. PT VERBALIZED UNDERSTANDING. BED IS LOW AND LOCKED. SIDE RAILS X2. PT AT BEDSIDE. PT DENIES NEEDS AT THIS TIME.
[2019-02-07] MEDS: INSULIN REGULAR, HUMAN 100 UNIT/1 ML 3ML VIAL SQ SCH ×4 (08:30→21:10)
[2019-02-07] MEDS: ASPIRIN 81 MG CHEW TAB PO SCH (08:38)
[2019-02-07] MEDS: LORATADINE 10 MG TAB PO SCH (08:50)
[2019-02-07] MEDS: ENOXAPARIN SOD INJ 40 MG/0.4 ML SYR SC SCH ×2 (08:50→17:00)
[2019-02-07] MEDS: METOPROLOL TARTRATE 25 MG TAB PO SCH ×2 (08:51→17:00)
[2019-02-07] MEDS: CLOPIDOGREL BISULFATE 75 MG TAB PO SCH (08:51)
[2019-02-07] MEDS: ATORVASTATIN 40 MG TAB PO SCH (08:52)
[2019-02-07] MEDS: FAMOTIDINE 20 MG/2 ML VIAL IV SCH ×2 (08:57→16:59)
[2019-02-07] MEDS: VANCOMYCIN 1GM/NS 250 ML 250 ML IV SCH ×2 (10:31→22:35)
--- NOTE | 2019-02-07 14:59 | NUR ---
WOUND CARE CONSULT 58 YO MALE DIABETIC PATIENT HX OF RT TRANS MET AMPUTATION R/T CHRONIC OSTEO BLOOD CULTURE PENDING LABS: WBC- 4.09,HGB- 9.0, GLUCOSE -163 SKIN ASSESSMENT COMPLETE PATIENT PRESENTS WITH DIABETIC ULCERATION TO RIGHT TMA 2.5CM X 2CM X1.5CM MACERATION TO CALLUS EDGES NOTED WOUND BASE DUSKY RED WITH SEROSANGUINEOUS DRAINAGE RECOMMENDATIONS: NURSING TO MAINTAIN PATIENT ON PROTECTIVE PRESSURE SURFACE NURSING TO CONTINUE TO MAINTAIN CONSERVATIVE PUP STATUS AND BILATERAL HEEL SUSPENSION WITH PILLOWS NURSING TO ASSIST PATIENT OUT OF BED FOR MEALS TOLERATED NURSING TO APPLY DAILY PURACOL AG (COLLAGEN) TO WOUND BASE OF RIGHT TMA ULCERATION Addendum: 02/07/19 at 1509 by Sunil Lee RN Amended: Links added.
--- NOTE | 2019-02-07 15:00 | NUR ---
DR. KIM AT BEDSIDE. INFORMED ABOUT NEWLY ADDED HOME MEDS AND LEVEMIR.
--- NOTE | 2019-02-07 15:24 | Progress Note ---
DATE: 02/07/2019 Cardiology Progress Note SUBJECTIVE: Denies chest pain or shortness of breath. Discussed again coronary graft angiography and possible interventions, indications, alternatives, risks and benefits discussed and provided patient with information. The patient voices understanding. OBJECTIVE: VITAL SIGNS: Temperature 97.3, heart rate 71, respiratory rate 18, blood pressure 129/71, O2 saturation 97%, BMI 38.6. GENERAL: In no acute distress, alert. NECK: No JVD. CHEST: Clear to auscultation. CARDIOVASCULAR: Regular rate and rhythm. Normal S1 and S2. No S3 or S4. No murmurs or rubs. ABDOMEN: Soft, nontender. Bowel sounds positive. EXTREMITIES: No cyanosis or clubbing. There is trace edema. Right foot stump wound covered with dressings. SKIN: Sternotomy scar. CARDIOVASCULAR MEDICATIONS: Reviewed. Lovenox 40 mg b.i.d., metoprolol tartrate 25 mg b.i.d., atorvastatin 80 mg at bedtime, clopidogrel 75 mg daily, aspirin 81 mg daily, vancomycin and Zosyn. LABORATORY STUDIES: Reviewed. Sodium 137, potassium 4.2, chloride 108, bicarbonate 19, BUN 20, creatinine 1.2, glucose 222. White blood cells 3.9, hemoglobin 8.7, platelets 138, PT 14.3, PTT 37. INR 1.06. AST 16, ALT 13, alkaline phosphatase 88, total bilirubin 0.4. ASSESSMENT AND PLAN: 1. A 58-year-old man presents with Qqj-GY-ctzvbfthg myocardial infarction. 2. Acute on chronic systolic heart failure, status post implantable cardioverter-defibrillator. 3. Hypertension and dyslipidemia. 4. Peripheral arterial disease with right foot stump wound dehiscences. 5. Anemia. 6. Chronic kidney disease. RECOMMENDATIONS: Hold Lovenox after tonight's dose in preparation for coronary angiogram. I have discussed with laborer adjustable steel joist and placed the patient on schedule for tomorrow early p.m. early breakfast okay. Keep n.p.o. after 7 a.m. Continue rest of cardiovascular medications. Jan Yuen MD AFNya/MODCorbin /[id number]
--- NOTE | 2019-02-07 18:00 | NUR ---
CALL RECEIVED FROM DR. SOLOMON. START NS @ 60 ML/ HR FROM MIDNIGHT PER THE
--- NOTE | 2019-02-07 19:00 | NUR ---
BEDSIDE SHIFT REPORT GIVEN TO THE CLINICAL EDUCATION ACADEMIC COORDINATOR RN. PT DENIED FURTHER NEEDS.
--- NOTE | 2019-02-07 19:20 | NUR ---
Patient received lying in bed. No acute distress noted. Patient instructed of NPO status after breakfast (02/08) for upcoming procedure. Patient verbalized understanding.
[2019-02-07] MEDS: MORPHINE SULFATE INJ 4 MG/ML INJ 1ML IV PRN (20:18)
[2019-02-08] VITALS (15 sets, daily range): BP systolic 115–166; BP diastolic 5–90
[2019-02-08] MEDS: PIPERACILLIN/TAZO 4.5 GM 100 ML IV SCH ×4 (03:06→22:39)
[2019-02-08 05:58] LABS: CALCIUM 8.1 mg/dL (8.4-10.2); CREATININE, SERUM 1.25 mg/dL (0.72-1.25)
--- NOTE | 2019-02-08 06:35 | NUR ---
IV on right arm infiltrated. Old IV removed with tip intact. New IV inserted in right forearm 20 G. Patient tolerated well.
[2019-02-08] MEDS: SODIUM CHLORIDE 0.9% 1000ML 1,000 ML IV SCH ×2 (07:00→15:00)
--- NOTE | 2019-02-08 07:00 | NUR ---
Patient resting comfortably. Shift report given to oncoming nurse.
--- NOTE | 2019-02-08 07:06 | NUR ---
Received patient lying in bed with eyes open. Respiration even and unlabored without SOB. Call light in reach.
[2019-02-08] MEDS: INSULIN REGULAR, HUMAN 100 UNIT/1 ML 3ML VIAL SQ SCH ×4 (08:29→21:00)
[2019-02-08] MEDS: ASPIRIN 81 MG CHEW TAB PO SCH (08:30)
[2019-02-08] MEDS: FAMOTIDINE 20 MG/2 ML VIAL IV SCH ×2 (08:30→17:00)
[2019-02-08] MEDS: LORATADINE 10 MG TAB PO SCH (08:30)
[2019-02-08] MEDS: ATORVASTATIN 40 MG TAB PO SCH (08:30)
[2019-02-08] MEDS: METOPROLOL TARTRATE 25 MG TAB PO SCH (08:31)
[2019-02-08] MEDS: CLOPIDOGREL BISULFATE 75 MG TAB PO SCH (08:31)
[2019-02-08] MEDS: VANCOMYCIN 1GM/NS 250 ML 250 ML IV SCH (11:22)
--- NOTE | 2019-02-08 17:00 | Progress Note ---
DATE: 02/08/2019 Cardiology Progress Note SUBJECTIVE: Denies any chest pain or shortness of breath. Has no complaints this morning. OBJECTIVE: VITAL SIGNS: Temperature 97.7, heart rate 73, blood pressure 164/81, respiratory rate 19, O2 saturation 98%. BMI 38.6. GENERAL: In no acute distress. Alert. NECK: No JVD. CHEST: Clear to auscultation. CARDIOVASCULAR: Regular rate and rhythm. Normal S1 and S2. Systolic ejection murmur. ABDOMEN: Soft, nontender. Bowel sounds positive. EXTREMITIES: Right foot stump covered with dressings. Sternotomy scar noted. CARDIOVASCULAR MEDICATIONS: Reviewed. 1. Aspirin 81 mg daily. 2. Lovenox on hold. 3. Metoprolol tartrate 25 mg b.i.d. 4. Atorvastatin 80 mg daily. 5. Clopidogrel 75 mg daily. 6. Nitroglycerin p.r.n. 7. Vancomycin and Zosyn antibiotics. STUDIES: Reviewed. Sodium 137, potassium 4, chloride 107, bicarbonate 21, BUN 17, creatinine 1.26, glucose 192. White blood cells 3.9, hemoglobin 8.7, platelets are 138. INR 1.06, PT 14.3, PTT 37. AST 16, ALT 13, total bilirubin 0.4, alkaline phosphatase 88. ASSESSMENT AND PLAN: A 58-year-old man, presents with: 1. Igh-FT-plcdiildl myocardial infarction. 2. Hzolb-vx-wlfqarx systolic heart failure. 3. Coronary artery disease with history of bypass. 4. Chronic kidney disease. 5. Peripheral arterial disease. 6. Right foot wound dehiscence, undergoing antibiotic therapy. 7. Anemia and pancytopenia. RECOMMENDATIONS: Indications, alternatives, risks, and benefits were discussed for proceeding with coronary angiography and possible intervention, which is scheduled for today p.m. The patient voices understanding and agrees to proceed. Continue rest of cardiovascular medications and continue to hold Lovenox. MD DAMEON Hughes/HIPOLITOL /[id number]
[2019-02-08] MEDS ORDERED: MIDAZOLAM HCL 2 MG/2 ML VIAL ONE (17:13)
[2019-02-08] MEDS ORDERED: LIDOCAINE HCL 2% LOCAL 20 ML VIAL ONE (17:14)
[2019-02-08] MEDS ORDERED: FENTANYL CITRATE/PF 100MCG/2 ML INJ ONE (17:14)
[2019-02-08] MEDS ORDERED: HEPARIN SOD/SOD CHLORIDE 2,000 ML ONE (17:15)
[2019-02-08] MEDS ORDERED: IOPAMIDOL 370 MG/ML 200 ML INFUS..BTL INJ ONE (17:15)
[2019-02-08] MEDS ORDERED: SODIUM CHLORIDE 0.9% 1000ML 1,000 ML ONE (17:15)
--- NOTE | 2019-02-08 17:15 | NUR ---
Patient is transported for heart cath at this time.
[2019-02-08] MEDS ORDERED: SODIUM CHLORIDE 0.9% 1000ML 1,000 ML IV SCH ×2 (19:02)
--- NOTE | 2019-02-08 19:05 | NUR ---
Report given to power and recovery shift engineer. Patient is currently at the [facility] room at this time.
--- NOTE | 2019-02-08 19:20 | NUR ---
RECEIVED PATIENT FROM SHOE MAKER AT THIS TIME. DRESSING TO R GROIN IS C/D/I. NO BRUISING NOTED. TISSUE IS TENDER, NO HEMATOMA NOTED. PULSES TO BLE PALPABLE. VITALS STABLE. REMINDED PATIENT OF NECESSITY OF STAYING FLAT UNTIL MIDNIGHT, PER MD HELMS ORDERS. PATIENT VERBALIZED UNDERSTANDING. NO PAIN REPORTED. NO S&S OF DISTRESS NOTED. BED LOCKED IN LOWEST POSITION, SIDE RAILS UPX2, CALL LIGHT IN REACH.
--- NOTE | 2019-02-08 19:47 | NUR ---
PAGED MD HELMS CONCERNING DIET ORDER
--- NOTE | 2019-02-08 22:20 | NUR ---
PATIENT'S R FA 20G IV NOTED TO BE OCCLUDED WHEN RETURNED FROM PAEDIATRIC SURGEON. REMOVED AT THIS TIME, CATHETER TIP INTACT, PRESSURE DRESSING APPLIED. NEW IV PLACED IN R UA, 20G. ANTIBIOTICS AND FLUIDS STARTED AT THIS TIME.
[2019-02-08] MEDS: VALSARTAN/SACUBITRIL 24MG/26MG 1 EA TAB PO SCH (22:39)
[2019-02-09] VITALS: BP 158/72
--- NOTE | 2019-02-09 00:05 | NUR ---
PATIENT REQUESTED TO MOVE AT THIS TIME. DRESSING TO R GROIN S/P HEART CATH CONTINUES TO BE C/D/I. HELD PRESSURE TO SITE PATIENT TURNED ONTO SIDE. NO CHANGES TO DRESSING NOTED. TOLD PATIENT TO MOVE SLOWLY AND CAREFULLY TONIGHT TO ENSURE NO BLEEDING AND TO CALL IF ANYTHING FEELS WRONG TO HIM. PATIENT VERBALIZED UNDERSTANDING. WILL CONTINUE TO MONITOR CLOSELY.
[2019-02-09] MEDS: VANCOMYCIN 1GM/NS 250 ML 250 ML IV SCH ×2 (00:33→14:02)
--- NOTE | 2019-02-09 01:58 | Operative Report ---
DATE OF PROCEDURE: 02/08/2019 SURGEON: Jan Yuen MD PROCEDURE: Cardiac catheterization. COMMUNITY HEALTH ADVISOR: Jan Yuen MD, Interventional Cardiology. PROCEDURE INDICATION: Bbo-II-sirahpzfp myocardial infarction. PROCEDURES PERFORMED: 1. Left heart catheterization. 2. Selective coronary angiography. 3. Selective SPICER to LAD angiography. 4. Selective SVG to obtuse marginal angiography. 5. Ascending aorta aortogram PROCEDURE COMPLICATIONS: None. ESTIMATED BLOOD LOSS: Less than 15 mL. PROCEDURE SUMMARY: After consent was obtained, the patient was prepped and draped in a sterile fashion. The right femoral site was locally infiltrated with 2% lidocaine and access was obtained with micropuncture kit. All catheters were railed over a leading J-wire to the respective positions. Left main was engaged with a JL4 6-Tajik. JR4 6-Tajik was used for SPICER to LAD graft, SVG to OM, and RCA angiography. FINDINGS: These were the following findings: 1. LV pressure was 170/50 with end-diastolic pressure of 32. 2. Aortic pressure was 170/76. 3. The left main diffusely diseased to 80% with moderate calcifications, large in caliber gives an LAD and circumflex. 4. The LAD gives small caliber diagonal and septal branch after which it is 100% occluded. Distal LAD fills via patent SPICER to LAD. The distal LAD caliber itself is quite small, approximately 1.5 mm with severe diffuse disease 70% to 80%. 5. The circumflex is also diffusely diseased 70%, small in caliber throughout, gives 2 obtuse marginals. 6. The right coronary artery is severely diseased in the proximal segment. It is 100% occluded with bridging collaterals to mid segment, which is also distally occluded 100% without any observed outflow. 7. The SPICER to LAD is patent. 8. The SVG to obtuse marginal is patent. This OM is occluded ostial/proximally and does not fill retrograde the LCx. CONCLUSION: Multivessel severe [place] coronary artery disease with patent SPICER to LAD and SVG to obtuse marginal. RECOMMENDATIONS: Medical aggressive therapy. The patient has severe [place] disease, it is predominantly diffuse leaving small caliber vessels not amenable for further revascularization at this point. End-stage heart disease/ CAD, medical management. MD DAMEON Hughes/[facility] /[id number] MTDD
[2019-02-09 04:00] VITALS: BP 98/45
--- NOTE | 2019-02-09 04:30 | NUR ---
INFORMED BY TECH THAT PATIENT'S BP WAS 98/45. PATIENT RESPONSIVE. CHECKED DRESSING TO R GROIN, NO DRAINAGE NOTED. NO S&S OF DISTRESS NOTED. BED LOCKED IN LOWEST POSITION, SIDE RAILS UPX2, CALL LIGHT IN REACH. WILL CONTINUE TO MONITOR.
[2019-02-09] MEDS: PIPERACILLIN/TAZO 4.5 GM 100 ML IV SCH ×2 (05:09→09:11)
--- NOTE | 2019-02-09 06:58 | NUR ---
Received patient lying in bed with eyes open. Respiration even and unlabored without SOB. Call light in reach. Right groin dressing intact, no bleeding , no hematoma noted.
[2019-02-09 08:05] VITALS: BP 138/65
[2019-02-09] MEDS: INSULIN REGULAR, HUMAN 100 UNIT/1 ML 3ML VIAL SQ SCH ×3 (08:17→16:44)
[2019-02-09 08:54] VITALS: BP 138/65
[2019-02-09] MEDS ORDERED: METOPROLOL TARTRATE 25 MG TAB PO SCH (09:00)
[2019-02-09] MEDS: VALSARTAN/SACUBITRIL 24MG/26MG 1 EA TAB PO SCH (09:11)
[2019-02-09] MEDS: LORATADINE 10 MG TAB PO SCH (09:11)
[2019-02-09] MEDS: ASPIRIN 81 MG CHEW TAB PO SCH (09:11)
[2019-02-09] MEDS: FAMOTIDINE 20 MG/2 ML VIAL IV SCH (09:11)
[2019-02-09] MEDS: METOPROLOL TARTRATE 50 MG TAB PO SCH ×2 (09:12→16:45)
[2019-02-09] MEDS: CLOPIDOGREL BISULFATE 75 MG TAB PO SCH (09:12)
[2019-02-09] MEDS: ENOXAPARIN SOD INJ 40 MG/0.4 ML SYR SC SCH ×2 (09:12→16:45)
[2019-02-09 09:40] LABS: BLOOD UREA NITROGEN 11 mg/dL (7-26); BUN/CREATININE RATIO 11 (6-25); CALCIUM 8.6 mg/dL (8.4-10.2); CARBON DIOXIDE 21 mmol/L (22-29); CHLORIDE 104 mmol/L (98-107); CREATININE, SERUM 1.03 mg/dL (0.72-1.25); EST GLOMERULAR FILTRATION RATE > 60 ML/MIN (60-); GLUCOSE 215 mg/dL (74-118); SODIUM 134 mmol/L (136-145)
--- NOTE | 2019-02-09 10:30 | NUR ---
ASSESSMENT: Spiritual concern Pt looking to his deepa for peace and assurance. Intervention: Provided unhurried empathic listening. Facilitated conversation about deepa and positive attitude. Facilitated illness review. Outcome: No need to follow at this time. REGGIE PENA Marketing Sales Manager Spiritual Care Department O: [phone] Pager: [phone] ([phone] number calling from)
[2019-02-09 12:15] VITALS: BP 151/79
[2019-02-09] MEDS ORDERED: ONDANSETRON HCL 4 MG ORAL DISINTEGRATING TAB PO PRN (12:30)
--- NOTE | 2019-02-09 15:50 | NUR ---
Spoke to pt at bedside. He states that he has home health with [facility]. Choice letter signed and placed in chart. CM called [facility] and spoke to [facility] and verified that pt currently on service with them. IMM letter delivered and explained to pt. He verbalized understanding. Signed copy placed in chart. Copy to pt. Resumption of home health faxed to [facility] and informed of dc for today.
[2019-02-09 16:00] VITALS: BP 138/64
[2019-02-09] MEDS ORDERED: FAMOTIDINE 20 MG TAB PO SCH (16:30)
--- NOTE | 2019-02-09 18:00 | NUR ---
Spoke with Dr. Peng. States that patient is okay to discharge home from his standpoint.
--- NOTE | 2019-02-09 18:42 | NUR ---
PIV to right upper arm discontinued. catheter tip intact, no bleeding noted.
--- NOTE | 2019-02-09 19:00 | NUR ---
Report given to shift mechanic. Patient lying in bed with eyes open. Respiration even and unlabored without SOB. Call light in reach
[2019-02-09] MEDS ORDERED: ATORVASTATIN 40 MG TAB PO SCH (21:00)
--- NOTE | 2019-02-09 21:49 | Progress Note ---
DATE: 02/09/2019 Cardiology Progress Note SUBJECTIVE: Denies any chest pain. Shortness of breath improved. No new complaints. OBJECTIVE: VITAL SIGNS: Temperature 98.4, heart rate 75, blood pressure 138/65, respiratory rate 20, and O2 saturation 100%. BMI 38.6. GENERAL: In no acute distress, alert. NECK: No JVD. CHEST: Clear to auscultation. CARDIOVASCULAR: Regular rate and rhythm. Normal S1 and S2. Sternotomy scar. ABDOMEN: Soft. Bowel sounds positive. EXTREMITIES: With right foot stump covered with dressings. CARDIOVASCULAR MEDICATIONS: Reviewed. Zosyn and vancomycin antibiotics. Entresto 24/26 mg every 12 hours, aspirin 81 mg daily, atorvastatin 80 mg at bedtime, metoprolol tartrate 50 mg b.i.d. LABORATORY DATA: Sodium 137, potassium 4, chloride 107, bicarbonate 21, BUN 17, creatinine 1.25, glucose 192. White blood cells 3.9, hemoglobin 8.9, platelets 138. PT 14.3, INR 1.06, and PTT 37. AST 16, ALT 13, alkaline phosphatase 88, and total bilirubin 0.4. ASSESSMENT AND PLAN: 1. A 58-year-old man with severe [place] coronary artery disease, status post bypass, presenting with xsx-PI-jnezqnrpk myocardial infarction. 2. Acute on chronic systolic heart failure. 3. Peripheral arterial disease. 4. Pancytopenia. 5. Chronic kidney disease. 6. Morbid obesity. 7. Diabetes. 8. Cellulitis. RECOMMENDATIONS: 1. Continue current cardiovascular medications upon discharge. Followup in office in 1 to 2 weeks advised. 2. Continue wound care and antibiotics per discretion of other services. MD DAMEON Hughes/[facility] /[id number]
--- NOTE | 2019-02-10 10:45 | Discharge Summary ---
CONSULTANTS: 1. Dr. Kieran Guadarrama. 2. Dr. Jan Yuen. FINAL DIAGNOSES: 1. Non-ST elevation myocardial infarction. 2. Status post cardiac catheterization. The patient has small vessel disease. There is no intervention done. The finding. LV pressure was 170/50. The aortic pressure was 170/66. There is multiple small vessel disease. The SPICER to the LAD is patent. The SVG to the obtuse marginal is patent. Multivessel severe [place] coronary artery disease with patent SPICER to LAD and SVG to the obtuse marginal. The patient will maintain with medical aggressive measures. HISTORY OF PRESENT ILLNESS: The patient is a 58-year-old male with extensive chronic medical problems including diabetes, on insulin treatment, hypertension, obesity. He also has peripheral vascular disease, came in with increase in fatigue and chest pain. The patient is stable, however. He did have slight increase in cardiac enzymes. The patient has subsequent left heart catheterization done. The procedure was done by Dr. Peng. The patient has unremarkable event. The heart catheterization as mentioned above. No intervention. Medical treatment recommended. The patient is stable at this time. He will go home today. Resume his home medication. We will continue to monitor the patient as an outpatient for adjustment of his medication. He does have acute on chronic systolic dysfunction, congestive heart failure, ejection fraction is less than 30%. It is around 20%. The patient does have an ICD in place. The patient is stable, discharged home today. Continue to follow the patient as an outpatient and the patient will be monitored on his status and tight blood pressure and blood sugar control. MD BETTY Tomas/HIPOLITOL /[id number]
== END 2019-02-09 18:00 | disposition home health service (06) | DRG 280 ==
LOC: ER 17:23 → ERHOLD 18:11 → MED/SURG2 02-06 13:55
PROVIDERS: ADMIT Internal Medicine; ATTEND Internal Medicine
PROC: B2131ZZ Fluoroscopy of Multiple Coronary Artery Bypass Grafts using Low Osmolar Contrast (ICD-10-PCS; principal; 2019-02-08)
PROC: B2111ZZ Fluoroscopy of Multiple Coronary Arteries using Low Osmolar Contrast (ICD-10-PCS; 2019-02-08)
PROC: B2151ZZ Fluoroscopy of Left Heart using Low Osmolar Contrast (ICD-10-PCS; 2019-02-08)
PROC: B3101ZZ Fluoroscopy of Thoracic Aorta using Low Osmolar Contrast (ICD-10-PCS; 2019-02-08)
PROC: 4A023N7 Measurement of Cardiac Sampling and Pressure, Left Heart, Percutaneous Approach (ICD-10-PCS; 2019-02-08)
DX: I21.4 Non-ST elevation (NSTEMI) myocardial infarction (principal); I50.23 Acute on chronic systolic (congestive) heart failure; L03.115 Cellulitis of right lower limb; I13.0 Hypertensive heart and chronic kidney disease with heart failure and stage 1 through stage 4 chronic kidney disease, or unspecified chronic kidney disease; D61.818 Other pancytopenia; I50.9 Heart failure, unspecified; E78.5 Hyperlipidemia, unspecified; Z95.1 Presence of aortocoronary bypass graft; I25.10 Atherosclerotic heart disease of native coronary artery without angina pectoris; Z95.810 Presence of automatic (implantable) cardiac defibrillator; E11.22 Type 2 diabetes mellitus with diabetic chronic kidney disease; N18.3 Chronic kidney disease, stage 3 (moderate); E11.51 Type 2 diabetes mellitus with diabetic peripheral angiopathy without gangrene; Z89.431 Acquired absence of right foot; Z82.49 Family history of ischemic heart disease and other diseases of the circulatory system; D64.9 Anemia, unspecified; T87.81 Dehiscence of amputation stump; E66.01 Morbid (severe) obesity due to excess calories; Z68.38 Body mass index [BMI] 38.0-38.9, adult; Z79.4 Long term (current) use of insulin; E11.621 Type 2 diabetes mellitus with foot ulcer; L97.519 Non-pressure chronic ulcer of other part of right foot with unspecified severity
CPT/HCPCS: 36415; 71045; 74176; 75605; 80048; 80053; 81001; 82550; 82553; 82948; 83690; 83735; 83880; 84100; 84443; 84484; 85025; 85610; 85651; 85730; 87040; 87086; 87400; 93005; 93306; 93459; 96372; 99152; 99153; 99284; C1769; J1650; J1817; J2001; J2250; J2270; J2405; J2543; J3010; J3370; J7030; Q9967

== ENCOUNTER 2019-04-26 23:04 | Inpatient (IN) | payer MEDICARE ==
[~2019-04-26] VITALS: Ht 182.9 cm; Wt 124.7 kg
[~2019-04-26 23:04] MED LIST changes: +FERROUS SULFAT324 MG PO; +FOLIC ACID0.4 MG PO; +K DUR10 MEQ PO; +LEVEMIR100 UNIT/1
[2019-04-26] MEDS ORDERED: PIPER-TAZ 3.375 GM 50 ML IV STA (23:44)
[2019-04-26] MEDS ORDERED: VANCOMYCIN 1GM/NS 250 ML 250 ML IV STA (23:44)
--- NOTE | 2019-04-27 00:20 | Diagnostic Imaging Report ---
EXAMINATION: CHEST SINGLE (PORTABLE) COMPARISON: Chest x-ray 02/05/2019 INDICATION: ^fever ^Y DISCUSSION: Frontal view of the chest obtained at 2353 hours. HEART AND MEDIASTINUM: Stable mild cardiomegaly and cardiac bypass changes. LINES: Anterior cardiac lead is redemonstrated LUNGS: Stable low lung volumes without infiltrate or interstitial edema. Pulmonary veins are prominent but stable. PLEURA: No pleural effusion or pneumothorax. BONES AND SOFT TISSUES: Median sternotomy appears intact. No focal osseous lesions. The soft tissues are normal. IMPRESSION: Stable cardiomegaly and pulmonary venous prominence. No acute cardiopulmonary process. Signed by: Dr. Mulugeta Martines MD on 04/27/2019 12:17 AM
[2019-04-27 00:44] LABS: BASOPHILS % 0.2 % (0.0-1.0); EOSINOPHILS # (AUTO) 0.1 (0.0-0.4); EOSINOPHILS % 0.6 % (0.0-6.0); HEMATOCRIT 27.8 % (38.2-49.6); HEMOGLOBIN 8.8 g/dL (14.0-18.0); LYMPHOCYTES # (AUTO) 0.7 (1.0-3.2); LYMPHOCYTES % 7.7 % (18.0-39.1); MEAN CORPUSCULAR HGB CONC 31.7 g/dL (31-35); MEAN CORPUSCULAR VOLUME 85.3 fL (81-99); MONOCYTES # (AUTO) 0.7 (0.2-0.8); MONOCYTES % 8.1 % (4.4-11.3); NEUTROPHILS # (AUTO) 7.1 (2.1-6.9); NEUTROPHILS % 83.1 % (38.7-80.0); PLATELET COUNT 236 x10e3/uL (140-360); RED BLOOD COUNT 3.26 x10e6/uL (4.3-5.7); RED CELL DISTRIBUTION WIDTH 14.6 % (11.7-14.4)
[2019-04-27 00:49] LABS: INR 1.05; PROTHROMBIN TIME 14.4 seconds (11.9-14.5)
[2019-04-27 00:50] LABS: PARTIAL THROMBOPLASTIN TIME 39.3 seconds (23.8-35.5)
[2019-04-27 00:59] LABS: ALBUMIN 2.5 g/dL (3.5-5.0); ALBUMIN/GLOBULIN RATIO 0.6 (0.8-2.0); ANION GAP 15.2 mmol/L (8-16); CALCIUM 8.3 mg/dL (8.4-10.2); CREATININE, SERUM 1.95 mg/dL (0.72-1.25); POTASSIUM 4.2 mmol/L (3.5-5.1)
[2019-04-27] MEDS ORDERED: SODIUM CHLORIDE 0.9% 1000ML 1,000 ML IV ONE ×2 (01:00→02:30)
[2019-04-27] MEDS ORDERED: ACETAMINOPHEN 325 MG TAB PO PRN (02:30)
[2019-04-27] MEDS ORDERED: ONDANSETRON HCL INJ 2MG/ML 2ML 2 MG/ML VIAL IV PRN (02:30)
[2019-04-27] MEDS: VANCOMYCIN 1GM/NS 250 ML 250 ML IV SCH ×2 (02:39→16:19)
[2019-04-27] MEDS ORDERED: PIPER-TAZ 3.375 GM 50 ML IV SCH (06:00)
--- NOTE | 2019-04-27 07:26 | NUR ---
blood sugar checked result 310.
--- NOTE | 2019-04-27 07:33 | NUR ---
spoke with Dr. Rothman in order to get sliding scale order for patient. Was given order for low dose regular ACHS order read back and verified.
[2019-04-27] MEDS ORDERED: DEXTROSE 50% SYRINGE 50 ML IV PRN (07:45)
--- NOTE | 2019-04-27 07:46 | NUR ---
Spoke with Dr. Rothman about patients blood sugar of 310 not fitting in the sliding scale parameters that was ordered was told to give patient a one time dose of 12 units or regualr insulin subcutaneous now. Order read back and confirmed.
[2019-04-27] MEDS ORDERED: INSULIN REGULAR, HUMAN 100 UNIT/1 ML 3ML VIAL SQ ONE (08:05)
[2019-04-27] MEDS: PIPER-TAZ 3.375 GM 50 ML IV SCH ×2 (08:37→18:18)
[2019-04-27] MEDS ORDERED: DOCUSATE SODIUM 100 MG CAP PO PRN (10:15)
--- NOTE | 2019-04-27 10:19 | NUR ---
H&P cc:limb redness HPI: 58yoM, PCP , developed infection of right TMA stump. Symptoms of redness/pain/odor and subjective fever. PAST MEDICAL HISTORY: Remarkable for diabetes, hypertension, PVD, CAD, status post ICD, NSTEMI, Systolic CHF LVEF 25-30%, DFU s/p right TMA 2011, Osteomyelitis of right foot s/p TMA 2011 PSHx: right TMA 2011 Allergies; see emr FH/SH; ; no cigs meds; see MAR ROS; no c/s/N/V/D/MEDRANO/cp/sob/skin rash/back pain/dizziness/confusion/mood d/o v/s revd PE tired appearing anictewric ns1s2 mod bs soft nt nd no edema; right foot TMA, plantar surface with dressing and packing; malodorous; skin dry flat affect a&ox3; perrin labs/med revd A/P: Osteomyelitis of right foot- will need 6 weeks IV abx Cellulitis right foot stump- IV abx; cultures CAD- home meds GT- IVF CKD3 due to DM2- hab1c/lipids CHronic Systolic CHF- monitor fluid status Obesity- discussed need to loose weight; BMI 38- as above Physical deconditioning- PT Prop Dispo; PT; SNF; will need non-weight bearing status for healing; Gurvinder Rothman MD, PhD.
--- NOTE | 2019-04-27 11:22 | NUR ---
blood sugar 257.
[2019-04-27] MEDS: INSULIN REGULAR, HUMAN 100 UNIT/1 ML 3ML VIAL SQ SCH ×3 (11:38→20:48)
--- NOTE | 2019-04-27 11:38 | NUR ---
WOUND CARE PROVIDED FOR WOUND ON RIGHT LOWER EXTREMITY
--- NOTE | 2019-04-27 12:17 | NUR ---
received report from BLOW MOLD MACHINE OPERATOR, Selena for pt coming to room 293. awaiting pt's arrival to room.
[2019-04-27 12:41] VITALS: BP 113/58
--- NOTE | 2019-04-27 12:49 | NUR ---
PT ARRIVING VIA WHEELCHAIR TO ROOM 293 WITH ADMINISTRATIVE EXECUTIVE; PT AWAKE, ALERT, ORIENTED X3, NO SIGNS OF DISTRESS. LUNCH TRAY AT BEDSIDE. PT HAS NO COMPLAINTS AT THIS TIME.
[2019-04-27 13:02] LABS: CLARITY,URINE CLEAR (CLEAR); COLOR,URINE YELLOW (YELLOW)
[2019-04-27 13:03] LABS: BILIRUBIN,URINE NEGATIVE (NEGATIVE); KETONES,URINE NEGATIVE (NEGATIVE); LEUKOCYTE ESTERASE ,URINE NEGATIVE (NEGATIVE); NITRITE,URINE NEGATIVE (NEGATIVE); PROTEIN,URINE DIPSTICK NEGATIVE (NEGATIVE); URINE UROBILINOGEN 0.2 mg/dL (0.2 - 1)
[2019-04-27 13:11] VITALS: BP 105/58
[2019-04-27 13:22] LABS: EPITHELIAL CELLS,URINE FEW /LPF
[2019-04-27] MEDS ORDERED: SODIUM CHLORIDE 0.9% 250ML 250 ML ONE (15:30)
[2019-04-27] MEDS ORDERED: METOPROLOL TARTRATE 25 MG TAB PO SCH (17:00)
[2019-04-27 19:50] VITALS: BP 99/50
[2019-04-27 20:23] VITALS: BP 99/50
[2019-04-27] MEDS: INSULIN GLARGINE 100 UNITS/ML VIAL SQ SCH (20:53)
[2019-04-27] MEDS ORDERED: INSULIN DETEMIR 36 UNIT SQ SCH (21:00)
[2019-04-27] MEDS ORDERED: ATORVASTATIN 40 MG TAB PO SCH (21:00)
[2019-04-27] MEDS ORDERED: ZOLPIDEM TARTRATE 5 MG TAB PO PRN (21:00)
[2019-04-27] MEDS: SIMVASTATIN 40 MG TAB PO SCH (21:04)
[2019-04-28] VITALS (7 sets, daily range): BP systolic 107–129; BP diastolic 51–87
[2019-04-28] MEDS: PIPER-TAZ 3.375 GM 50 ML IV SCH ×3 (01:49→16:41)
[2019-04-28] MEDS: VANCOMYCIN 1GM/NS 250 ML 250 ML IV SCH ×2 (02:51→15:01)
--- NOTE | 2019-04-28 06:30 | NUR ---
IM- progress note O/N: see below ROS; no c/s/N/V/D/MEDRANO/cp/sob/skin rash/back pain/dizziness/confusion/mood d/o v/s revd PE tired appearing anictewric ns1s2 mod bs soft nt nd no edema; right foot TMA, plantar surface with dressing and packing; malodorous; skin dry flat affect a&ox3; perrin labs/med revd A/P: Osteomyelitis of right foot- will need 6 weeks IV abx Cellulitis right foot stump- IV abx; cultures CAD- home meds GT- IVF CKD3 due to DM2- hab1c/lipids CHronic Systolic CHF- monitor fluid status Obesity- discussed need to loose weight; BMI 38- as above Physical deconditioning- PT Prop Dispo; PT; SNF; will need non-weight bearing status for healing; 04/28 f/u cx; RAD for IJ placement; needing 6 weeks IV abx- d/w ID. Gurvinder Rothman MD, PhD.
--- NOTE | 2019-04-28 06:36 | NUR ---
Spoke with Dr. Rothman to confirm order regarding IJ placement. states this can be done on Tuesday04/30/19.
[2019-04-28 07:20] LABS: BASOPHILS % 0.5 % (0.0-1.0); EOSINOPHILS # (AUTO) 0.1 (0.0-0.4); EOSINOPHILS % 1.9 % (0.0-6.0); HEMATOCRIT 25.9 % (38.2-49.6); HEMOGLOBIN 8.1 g/dL (14.0-18.0); LYMPHOCYTES # (AUTO) 0.8 (1.0-3.2); LYMPHOCYTES % 13.6 % (18.0-39.1); MEAN CORPUSCULAR HEMOGLOBIN 26.8 pg (28-32); MEAN CORPUSCULAR HGB CONC 31.3 g/dL (31-35); MEAN CORPUSCULAR VOLUME 85.8 fL (81-99); MONOCYTES # (AUTO) 0.5 (0.2-0.8); MONOCYTES % 9.3 % (4.4-11.3); NEUTROPHILS # (AUTO) 4.3 (2.1-6.9); NEUTROPHILS % 74.2 % (38.7-80.0); PLATELET COUNT 231 x10e3/uL (140-360); RED BLOOD COUNT 3.02 x10e6/uL (4.3-5.7); RED CELL DISTRIBUTION WIDTH 14.7 % (11.7-14.4)
[2019-04-28] MEDS: INSULIN REGULAR, HUMAN 100 UNIT/1 ML 3ML VIAL SQ SCH ×4 (07:30→21:00)
[2019-04-28 07:47] LABS: ALBUMIN 2.1 g/dL (3.5-5.0); ALBUMIN/GLOBULIN RATIO 0.5 (0.8-2.0); ANION GAP 10.7 mmol/L (8-16); CALCIUM 8.2 mg/dL (8.4-10.2); CREATININE, SERUM 1.51 mg/dL (0.72-1.25); POTASSIUM 3.7 mmol/L (3.5-5.1)
[2019-04-28 08:30] LABS: CHOL/HDL RATIO 4.1 (3.9-4.7)
[2019-04-28] MEDS ORDERED: LORATADINE 10 MG TAB PO SCH (09:00)
[2019-04-28] MEDS: CARVEDILOL 3.125 MG TAB PO SCH ×2 (09:02→16:41)
[2019-04-28] MEDS: CLOPIDOGREL BISULFATE 75 MG TAB PO SCH (09:03)
--- NOTE | 2019-04-28 10:49 | NUR ---
PT WANTS TO CONTINUE WITH [facility], CHOICE LETTER SIGNED AND IS PLACED IN THE CHART
--- NOTE | 2019-04-28 12:21 | NUR ---
BEDSIDE NURSE MADE AWARE THAT PT DOES NOT WANT SNF, REQUESTED ORDER FOR HOME HEALTH
[2019-04-28] MEDS ORDERED: COLLAGENASE 5 GM TUBE TOP PRN (14:30)
--- NOTE | 2019-04-28 18:30 | Diagnostic Imaging Report ---
TECHNIQUE: Computed tomography imaging of the right lower extremity was performed WITHOUT injected contrast. HISTORY: Evaluate for infection COMPARISON: None available. DISCUSSION: Patient is status post amputation of the majority of the foot with residual hindfoot stump involving a fused partial talus and calcaneus. Soft tissue ulceration involving the plantar aspects of the stump with ill-defined fluid and gas collection extending into the hindfoot stump. Erosive change and periostitis within the stump. Additional subcutaneous edema distally. Atrophy of the calf musculature. Vascular calcifications. IMPRESSION: Amputation of the hindfoot with residual fused partial talus and calcaneal stump. Plantar foot ulceration with fluid and gas collection extending to and within the osseous stump compatible with polymicrobial abscess and osteomyelitis. Signed by: Dr. Santi Ireland M.D. on 04/30/2019 9:21 AM
--- NOTE | 2019-04-28 18:39 | Diagnostic Imaging Report ---
FOOT RIGHT COMPLETE - Multiple views HISTORY: ^cellulitis ^[id number] ^1800 ^Y COMPARISON: None available. FINDINGS: Status post amputation of the right foot with ulcerated wound seen overlying the amputation site. There is associated of soft tissue swelling with inflammatory stranding swelling and subcutaneous emphysema compatible with gas-forming cellulitis. There is associated erosion of the deformed talus and calcaneus compatible with osteomyelitis. IMPRESSION: Osteomyelitis and cellulitis as described. Signed by: Yobany Boateng MD on 04/28/2019 6:37 PM
--- NOTE | 2019-04-28 18:42 | Consultation ---
DATE OF CONSULTATION: TECHNOLOGY SALES SPECIALIST: Dr. Velasquez. Dr. Todd Hall covering for her. REASON FOR CONSULTATION: Ulceration to the right foot with the patient being an insulin-dependent diabetic. HISTORY OF PRESENT ILLNESS: This pleasant 58-year-old male was seen at bedside. He was well known to me from approximately two years ago. He relates he has had an ulceration for several months in the plantar aspect right foot, presented to the emergency room having some fever, but no chills. Since he has been in the hospital getting IV antibiotics, he has been feeling significantly better. PAST MEDICAL HISTORY: Remarkable for insulin-dependent diabetes, hypertension, congestive heart failure, hypercholesteremia. PAST SURGICAL HISTORY: Remarkable for right foot surgery and left foot surgery including a right Chopart toe amputation, right knee surgery. ALLERGIES: THE PATIENT DENIES. CURRENT MEDICATIONS: Note listed in chart including Zosyn and vancomycin. SOCIAL HISTORY: No smoking, drinking, or recreational drug use. Lives with his . Has one stepchild. FAMILY HISTORY: Remarkable for diabetes. REVIEW OF SYSTEMS: CARDIAC: Denies any palpitations or arrhythmias. RESPIRATORY: Denies any shortness of breath or productive cough. GASTROINTESTINAL: Denies any diarrhea or constipation. GENITOURINARY: Denies hematuria or problems voiding. PHYSICAL EXAMINATION: VITAL SIGNS: Afebrile, pulse rate 74, respiration 20, blood pressure 109/55 with an O2 saturation of 97%. PODIATRIC: Reveals the following, pedal pulses of both the DP and PT are palpable, but diminished. SKIN: Temperature warm to touch. NEUROLOGICAL: Reveals complete loss of protective sensation to both lower extremities. Muscle mass is symmetrical. Muscle strength is 4 to 5/5 to all muscle groups. DERMATOLOGICAL: Reveals a grade 3 ulceration, plantar aspect right foot with some necrosis noted. No bone exposed. Negative foul smell. Granulation tissue noted. ASSESSMENT: Grade 3 ulcer possible osteo with diabetic neuropathy. PLAN: We will start Santyl collagenase followed by diluted wet-to-dry Betadine. X-rays, three views will be ordered. Continue IV antibiotics. Continue local wound care and offloading. Dr. Velasquez will follow up on Tuesday. Todd Hall DPM J[facility]/MODL /[id number]
--- NOTE | 2019-04-28 19:12 | NUR ---
Transitional report given to on coming RN, rounds completed, patient stable and call light within reach
--- NOTE | 2019-04-28 19:14 | NUR ---
Received change of shift report from AM nurse. Walking rounds completed.
--- NOTE | 2019-04-28 20:43 | Consultation ---
DATE OF CONSULTATION: 04/28/2019 Infectious Disease Consultation I would like to thank Dr. Gurvinder Rothman for this interesting consult. HISTORY OF PRESENT ILLNESS: This is a very pleasant 58-year-old male with past medical history of type 1 diabetes mellitus, hypertension, cellulitis of the right leg, open wound to the right leg. According to the patient, he was in his usual state of health until about 2 days ago when he started having pain in the right stump area and was having fever with a T-max of about 100. There was drainage from the wound, so he presented to the hospital for further evaluation. Our service has been asked to evaluate and give further recommendations regarding antibiotics. PAST MEDICAL HISTORY: Diabetes mellitus, hypertension, cellulitis of the right leg, open wound of the right leg. PAST SURGICAL HISTORY: None significant. ALLERGIES: NO KNOWN DRUG ALLERGIES. FAMILY HISTORY: Noncontributory. SOCIAL HISTORY: The patient lives at home with family. No history of alcohol intake. REVIEW OF SYSTEMS: All review of systems done and all negative except for the ones in the HPI. PHYSICAL EXAMINATION: VITAL SIGNS: Temperature is 98.7, respiratory rate is 18, heart rate is 125, blood pressure is 127/87. GENERAL: Awake, alert, and oriented. Chest: Clear to auscultation bilaterally. HEART: S1 and S2 are normal. ABDOMEN: Soft and nontender. EXTREMITIES: Right lower extremity is in dressing. ASSESSMENT AND PLAN: A 58-year-old male with past medical history of hypertension, diabetes mellitus, cellulitis of the right lower extremity, wound of the right lower extremity, presents with pain and cellulitis of the right lower extremity due to soft tissue diabetic foot infection, and concerns about osteomyelitis. We will check CT scan of the right lower extremity. Wound culture is suggestive of gram-negative rods. Continue the patient on IV vancomycin and Zosyn and then follow the wound cultures for further recommendations. Thank you for letting me to participate in the care of your patient. Edyta Blanco MD FT/MODL /[id number]
[2019-04-28] MEDS: SIMVASTATIN 40 MG TAB PO SCH (21:00)
[2019-04-28] MEDS: INSULIN GLARGINE 100 UNITS/ML VIAL SQ SCH (21:00)
[2019-04-29] VITALS (9 sets, daily range): BP systolic 107–165; BP diastolic 49–70
--- NOTE | 2019-04-29 | NUR ---
Patient in bed state he what his cough tab and pain pill. Patient dont have these meds. Called MD to get order for the meds. Waiting for call back.
[2019-04-29] MEDS: PIPER-TAZ 3.375 GM 50 ML IV SCH ×3 (01:00→18:14)
[2019-04-29] MEDS: VANCOMYCIN 1GM/NS 250 ML 250 ML IV SCH ×2 (02:23→15:45)
--- NOTE | 2019-04-29 05:45 | NUR ---
Left message for Dr. Rothman to notify him of pt request for home health IV antibiotics instead of going to SNF. Awaiting his reply.
--- NOTE | 2019-04-29 07:15 | NUR ---
RECEIVED BEDSIDE SHIFT REPORT FROM NIGHT NURSE. PATIENT SITTING UP AT EDGE OF BED, NO VISIBLE SIGNS OF DISTRESS NOTED. PLEASANT. CALL LIGHT WITHIN REACH.
--- NOTE | 2019-04-29 07:25 | NUR ---
IM- progress note O/N: see below ROS; no c/s/N/V/D/MEDRANO/cp/sob/skin rash/back pain/dizziness/confusion/mood d/o v/s revd PE tired appearing anictewric ns1s2 mod bs soft nt nd no edema; right foot TMA, plantar surface with dressing and packing; malodorous; skin dry flat affect a&ox3; perrin labs/med revd A/P: Osteomyelitis of right foot- will need 6 weeks IV abx Cellulitis right foot stump- IV abx; cultures CAD- home meds GT- IVF CKD3 due to DM2- hab1c/lipids CHronic Systolic CHF- monitor fluid status Obesity- discussed need to loose weight; BMI 38- as above Physical deconditioning- PT Prop Dispo; PT; SNF; will need non-weight bearing status for healing; 04/28 f/u cx; RAD for IJ placement; needing 6 weeks IV abx- d/w ID. 04/29 GNR in wound; pt wants home IV abx; E.coli, Enterobacter and Strep infected wound. Gurvinder Rothman MD, PhD.
--- NOTE | 2019-04-29 07:25 | NUR ---
BEDSIDE REPORT GIVEN TO ONCOMING NURSE. PATIENT RESTING IN BED, NO VISIBLE SIGNS OF DISTRESS NOTED. CALL LIGHT WITHIN REACH.
[2019-04-29] MEDS: INSULIN REGULAR, HUMAN 100 UNIT/1 ML 3ML VIAL SQ SCH ×4 (07:30→21:00)
[2019-04-29] MEDS: CARVEDILOL 3.125 MG TAB PO SCH ×2 (09:00→18:15)
[2019-04-29] MEDS: CLOPIDOGREL BISULFATE 75 MG TAB PO SCH (09:00)
[2019-04-29] MEDS ORDERED: SODIUM CHLORIDE 0.9% 250ML 250 ML ONE (14:00)
--- NOTE | 2019-04-29 19:11 | Progress Note ---
DATE: 04/29/2019 SUBJECTIVE: The patient is seen at bedside. No distress. Denies any history of fever, chills, nausea, or vomiting. OBJECTIVE: VITAL SIGNS: Afebrile. Vital signs stable. EXTREMITIES: Ulcerations to the right lower extremity including sores and granulation tissue noted. ASSESSMENT: Grade 3 ulcer, possible osteo right foot with peripheral neuropathy. PLAN: We will continue Santyl followed by diluted wet-to-dry Betadine. Dr. Velasquez will follow up. Continue IV. THOMAS Antonio/[facility] /[id number]
--- NOTE | 2019-04-29 20:31 | NUR ---
RECEIVED PT IN THE BED AOX3 RT LEG CELLULITIS .DENIES PAIN .CALL LIGHT WITH IN REACH .CONTINUE TO MONITOR
[2019-04-29] MEDS: INSULIN GLARGINE 100 UNITS/ML VIAL SQ SCH (21:00)
[2019-04-29] MEDS: SIMVASTATIN 40 MG TAB PO SCH (21:48)
[2019-04-30] VITALS: BP 133/72
[2019-04-30] MEDS: PIPER-TAZ 3.375 GM 50 ML IV SCH ×2 (01:00→09:00)
[2019-04-30] MEDS: VANCOMYCIN 1GM/NS 250 ML 250 ML IV SCH (03:07)
[2019-04-30 04:00] VITALS: BP 127/58
--- NOTE | 2019-04-30 06:06 | NUR ---
PT RESTED DURING THE NIGHT .DENIES PAIN.CALL LIGHT WITH IN REACH .CONTINUE TO MONITOR
--- NOTE | 2019-04-30 06:58 | NUR ---
BEDSIDE REPORT GIVEN TO THE ONCOMING NURSE
[2019-04-30 07:15] VITALS: BP 125/56
--- NOTE | 2019-04-30 07:20 | NUR ---
PT IN BED RESTING ,NO S/S DISCOMFORT,
[2019-04-30 07:53] VITALS: BP 125/56
[2019-04-30] MEDS: INSULIN REGULAR, HUMAN 100 UNIT/1 ML 3ML VIAL SQ SCH ×3 (08:30→16:30)
[2019-04-30] MEDS: CARVEDILOL 3.125 MG TAB PO SCH ×2 (08:35→17:00)
[2019-04-30] MEDS: CLOPIDOGREL BISULFATE 75 MG TAB PO SCH (09:00)
--- NOTE | 2019-04-30 09:30 | NUR ---
PT REFUSED TO SIGN CONSENT FOR IJ STATED HE ONLY WANTS PICC LINE,INFORMED DR DE LA ROSA .WAITING FOR NEW ORDERS
--- NOTE | 2019-04-30 11:15 | NUR ---
CM MET W THE PT AT THE BEDSIDE. PT STATES HE HAS TRADITIONAL [facility]ARE AND WOULD LIKE TO HAVE HIS PCP; DR. KIM HIS ATTENDING. STATES DR. DE LA ROSA WAS ASSIGNED TO HIM IN THE ER BECAUSE HIS PART D PLAN IS W [employer]. DISCUSSED HOME IV ABX. PT CONFIRMED HE DID NOT WANT TO GO TO A SNF. STATES HE HAS BEEN ON SERVICE W [facility] FOR HIS IV ABX AND [facility]. CHOICE LETTER WAS SIGNED AND COPY TO CHART AND COPY TO THE PT. CALL TO DR. DE LA ROSA AND HE WAS OK TO CHANGE PT TO DR. KIM. CALL TO DR. KIM. STATES HE WILL SEE THE PT TOMORROW.
[2019-04-30 11:24] VITALS: BP 132/57
[2019-04-30 12:27] LABS: BASOPHILS % 0.6 % (0.0-1.0); EOSINOPHILS # (AUTO) 0.2 (0.0-0.4); EOSINOPHILS % 2.7 % (0.0-6.0); HEMATOCRIT 28.3 % (38.2-49.6); LYMPHOCYTES # (AUTO) 0.8 (1.0-3.2); LYMPHOCYTES % 12.1 % (18.0-39.1); MEAN CORPUSCULAR HEMOGLOBIN 27.4 pg (28-32); MEAN CORPUSCULAR HGB CONC 31.8 g/dL (31-35); MEAN CORPUSCULAR VOLUME 86.3 fL (81-99); MONOCYTES # (AUTO) 0.5 (0.2-0.8); MONOCYTES % 6.8 % (4.4-11.3); NEUTROPHILS # (AUTO) 5.3 (2.1-6.9); NEUTROPHILS % 76.8 % (38.7-80.0); PLATELET COUNT 301 x10e3/uL (140-360); RED BLOOD COUNT 3.28 x10e6/uL (4.3-5.7); RED CELL DISTRIBUTION WIDTH 14.5 % (11.7-14.4)
[2019-04-30 12:57] LABS: ANION GAP 11.1 mmol/L (8-16); CALCIUM 8.2 mg/dL (8.4-10.2); CREATININE, SERUM 1.27 mg/dL (0.72-1.25); POTASSIUM 4.1 mmol/L (3.5-5.1)
--- NOTE | 2019-04-30 14:03 | NUR ---
D/C Summary Principal Dx; Osteomyelitis of right foot- will need 6 weeks IV abx Cellulitis right foot stump- IV abx; cultures GT Secodnary Dx: CAD- home meds CKD3 due to DM2- hab1c/lipids CHronic Systolic CHF- monitor fluid status Obesity- discussed need to loose weight; BMI 38- as above Physical deconditioning- PT Prop Dispo; PT; SNF; will need non-weight bearing status for healing; 04/28 f/u cx; RAD for IJ placement; needing 6 weeks IV abx- d/w ID. 04/29 GNR in wound; pt wants home IV abx; E.coli, Enterobacter and Strep infected wound. D/C home with IV abx f/u pcp 2-4 days stable d/c>35mins Gurvinder Rothman MD, PhD.
--- NOTE | 2019-04-30 14:09 | NUR ---
ORDER RECEIVED FOR ERTAPANEM 1GM IV DAILY TIL 06/09/2019. WEEKLY CBC, CMP, ESR. ORDER FAXED TO [facility] @ OFF: [phone] / FAX: [phone].
[2019-04-30] MEDS ORDERED: ERTAPENEM 1GM/NS 100ML 100 ML IV SCH (15:00)
--- NOTE | 2019-04-30 15:16 | NUR ---
PT UP IN CHAIR,DENIES PAIN,DR DE LA ROSA HERE OK TO DC WHEN ANTIBIOTICS SET UP
[2019-04-30] MEDS ORDERED: ONDANSETRON HCL 4 MG ORAL DISINTEGRATING TAB PO PRN (15:45)
[2019-04-30 16:04] VITALS: BP 136/64
--- NOTE | 2019-04-30 16:56 | Progress Note ---
DATE: 04/30/2019 SUBJECTIVE: The patient was seen at bedside today, in no acute distress. Dressings are clean, dry, and intact to the right foot. He denies any overnight constitutional symptoms. Clinically, the ulcerations were examined, no changes since previous examination with Dr. Hall. ASSESSMENT: 1. Grade 3 ulceration, right plantar of foot with possible osteomyelitis and cellulitis. 2. Diabetes mellitus with peripheral neuropathy. PLAN: From Podiatry standpoint, continue with the Nita with diluted wet-to-dry dressing on the right lower extremity. He is okay to be discharged on IV antibiotics per Infectious Disease. At this point, Podiatry will sign off. Please reconsult if services are required. The patient is to follow up with me in clinic within 1 to 2 week of discharge. Thank you again for including me in the care of this patient. THOMAS Barrientos/[facility] /[id number]
--- NOTE | 2019-04-30 17:18 | Diagnostic Imaging Report ---
EXAMINATION: CHEST XRAY LINE PLACEMENT INDICATION: Line placement COMPARISON: Chest radiograph 04/26/2019 FINDINGS: LINES/TUBES:Right PICC line terminates at the superior cavoatrial junction. Pacing lead unchanged. LUNGS:The lungs are moderately inflated. There is perihilar fullness and indistinctness of the pulmonary vasculature. PLEURA:No pleural effusion or pneumothorax. MEDIASTINUM:Cardiomediastinal silhouette is stably enlarged. BONES/SOFT TISSUES:No acute osseous injury. ABDOMEN:No free air under the diaphragm. IMPRESSION: Right PICC line terminates at the superior cavoatrial junction. Otherwise, no significant interval change. Signed by: Ping Calderon MD on 04/30/2019 5:16 PM
--- NOTE | 2019-04-30 17:34 | NUR ---
HOME HEALTH DISCHARGE NOTE PATIENT ADDRESS WHERE SERVICE WILL BE RECEIVED: [address] [place] [id number] PATIENT CONTACT NUMBER: [phone] NAME OF HOME HEALTH COMPANY: [facility] TELEPHONE/FAX NUMBER OF COMPANY: OFF: [phone] / FAX: [phone] SERVICES TO RECEIVE: HOME IV ANTIBIOTICS / ERTAPENEM 1GM IV DAILY TILL 06/09/2019. WEEKLY CBC, CMP AND ESR ANTICIPATED DATE SERVICES WILL BEGIN: 05/01/2019 NAME OF HOME HEALTH COMPANY: [facility] TELEPHONE / FAX NUMBER OF COMPANY: OFF: [phone] / [phone] CONTACT: RAMU Please call the company above if you have not received a call to schedule a home visit within 24 hours of discharge.
--- NOTE | 2019-04-30 17:48 | NUR ---
picc line inserted ,ok to use,first dose invanz given
--- NOTE | 2019-04-30 19:10 | NUR ---
Received change of shift report from AM nurse. Walking rounds completed.
--- NOTE | 2019-04-30 20:07 | NUR ---
Patient D/C home via w/c to private car.
== END 2019-04-30 20:17 | disposition home health service (06) | DRG 638 ==
LOC: ER 23:04 → ERHOLD 04-27 03:12 → MED/SURG3 04-27 12:58
PROVIDERS: ADMIT Internal Medicine; ATTEND Internal Medicine
PROC: 02HV33Z Insertion of Infusion Device into Superior Vena Cava, Percutaneous Approach (ICD-10-PCS; principal; 2019-04-26)
DX: E11.69 Type 2 diabetes mellitus with other specified complication (principal); L03.115 Cellulitis of right lower limb; I50.22 Chronic systolic (congestive) heart failure; I13.0 Hypertensive heart and chronic kidney disease with heart failure and stage 1 through stage 4 chronic kidney disease, or unspecified chronic kidney disease; M86.8X7 Other osteomyelitis, ankle and foot; L97.413 Non-pressure chronic ulcer of right heel and midfoot with necrosis of muscle; N18.3 Chronic kidney disease, stage 3 (moderate); N17.9 Acute kidney failure, unspecified; E11.22 Type 2 diabetes mellitus with diabetic chronic kidney disease; E78.00 Pure hypercholesterolemia, unspecified; Z79.4 Long term (current) use of insulin; E11.40 Type 2 diabetes mellitus with diabetic neuropathy, unspecified; E11.42 Type 2 diabetes mellitus with diabetic polyneuropathy; B96.20 Unspecified Escherichia coli [E. coli] as the cause of diseases classified elsewhere; B96.89 Other specified bacterial agents as the cause of diseases classified elsewhere; E11.621 Type 2 diabetes mellitus with foot ulcer
CPT/HCPCS: 36415; 36569; 71045; 74470; 80048; 80053; 80061; 80202; 81001; 82948; 83036; 83605; 85025; 85610; 85730; 87040; 87071; 87086; 87186; 87205; 87400; 93005; 94640; 97139; 99284; J1817; J2543; J3370; J7030; J7050

== ENCOUNTER 2019-08-17 17:39 | Emergency (ER) | payer MEDICARE ==
[~2019-08-17] VITALS: Ht 188 cm; Wt 124.7 kg
[2019-08-17] MEDS ORDERED: PIPER-TAZ 3.375 GM 50 ML IV STA (17:48)
--- NOTE | 2019-08-17 17:51 | Emergency Department Note ---
History of Present Illnes History of Present Illness Chief Complaint: COVID PUI History of Present Illness This is a 59 year old male presents to the ED for myalgias, fever and chills of 4 days. EMS contacted for continued chills. Patient transported to ED combative per EMS. Noted elevated RR . Historian: Hospital Account Liaison/EMS Arrival Mode: [facility] Treatment ALUM PLANT OPERATOR: IV, O2 Cull Grader Required: No Onset (how long ago): day(s) (4) Radiation: Reports non-radiation Severity: moderate Onset quality: gradual Duration (how long): day(s) (4) Timing of current episode: constant Progression: worsening Context: Reports recent illness Relieving factors: none Exacerbating factors: none Associated symptoms: Reports fever/chills, Reports shortness of breath, Reports weakness Treatments prior to arrival: none (MAGEN KIM DO) Past Medical/Family History Physician Review I have reviewed the patient's past medical and family history. Any updates have been documented here. (MAGEN KIM DO) Past Medical History Recent Fever: Yes Clinical Suspicion of Infectio: Yes New/Unexplained Change in Ment: Yes Past Medical History: Hypertension, Diabetes, CHF, CAD, Hyperlipedemia Other Medical History: DIABETIC WOUND OSTEOMYLITIS Past Surgical History: Knee Replacement Other Surgery: RIGHT FOOT AMPUTATION (MAGEN KIM DO) Social History Smoking Cessation: Never Smoker Alcohol Use: None Any Illegal Drug Use: No (MAGEN KIM DO) Other Last Tetanus: UTD (MAGEN KIM DO) Review of Systems Review of Systems Constitutional: Reports chills, Reports fever EENTM: Reports no symptoms Cardiovascular: Reports no symptoms Respiratory: Reports cough Gastrointestinal: Reports no symptoms Genitourinary: Reports no symptoms Musculoskeletal: Reports no symptoms Integumentary: Reports no symptoms Neurological: Reports no symptoms Psychological: Reports no symptoms Endocrine: Reports no symptoms Hematological/Lymphatic: Reports no symptoms (MAGEN KIM DO) Physical Exam Related Data Allergies: Coded Allergies: No Known Allergies (Unverified , 02/05/19) Physical Exam CONSTITUTIONAL Constitutional: Present morbidly obese, Present ill appearing HENT HENT: Present normocephalic, Present atraumatic, Present oropharynx clear/moist, Present nose normal HENT L/R: Present left ext ear normal, Present right ext ear normal EYES Eyes: Reports PERRL, Reports conjunctivae normal NECK Neck: Present ROM normal PULMONARY Pulmonary: Present other (decreased BS, tachypneic) CARDIOVASCULAR Cardiovascular: Present regular rhythm, Present heart sounds normal, Present capillary refill normal, Present normal rate GASTROINTESTINAL Abdominal: Present soft, Present nontender, Present bowel sounds normal GENITOURINARY Genitourinary: Present exam deferred SKIN Skin: Present warm, Present dry MUSCULOSKELETAL Musculoskeletal: Present ROM normal NEUROLOGICAL Neurological: Present alert, Present oriented x 3, Present no gross motor or sensory deficits PSYCHOLOGICAL Psychological: Present mood/affect normal, Present judgement normal (KIM ,MAGEN DO) Results Laboratory Laboratory Laboratory Tests Test 08/17/19 23:20 08/17/19 19:39 08/17/19 18:20 08/17/19 17:52 Creatine Kinase 50 IU/L (30-200) 46 IU/L (30-200) Creatine Kinase MB < 1.00 ng/mL (0-4.3) 0.50 ng/mL (0-5.0) Troponin I < 0.05 ng/mL (0.0-0.40) 0.028 ng/mL (0-0.300) Urine Color Yellow (YELLOW) Urine Clarity Sl cloudy (CLEAR) Urine pH 5 (5 - 7) Urine Specific [place] 1.020 (1.010-1.025) Urine Protein 2+ (NEGATIVE) Urine Glucose (UA) 2+ (NEGATIVE) Urine Ketones Negative (NEGATIVE) Urine Blood 1+ (NEGATIVE) Urine Nitrite Negative (NEGATIVE) Urine Bilirubin Negative (NEGATIVE) Urine Urobilinogen 0.2 mg/dL (0.2 - 1) Urine Leukocyte Esterase Negative (NEGATIVE) Urine RBC 6-10 /HPF (0-5) Urine WBC None /HPF (0-5) Urine Epithelial Cells Few /LPF (NONE) Urine Bacteria Moderate /HPF (NONE) Urine Opiates Screen Negative (NEGATIVE) Urine Methadone Screen Negative (NEGATIVE) Urine Barbiturates Screen Negative (NEGATIVE) Urine Phencyclidine Screen Negative (NEGATIVE) Urine Amphetamines Screen Negative (NEGATIVE) Urine Methamphetamines Screen Negative (NEGATIVE) Urine Benzodiazepines Screen Negative (NEGATIVE) Urine Cocaine Screen Negative (NEGATIVE) Urine Cannabinoids Screen Negative (NEGATIVE) White Blood Count 9.18 x10e3/uL (4.8-10.8) Red Blood Count 4.26 x10e6/uL (4.3-5.7) Hemoglobin 10.6 g/dL (14.0-18.0) Hematocrit 34.6 % (38.2-49.6) Mean Corpuscular Volume 81.2 fL (81-99) Mean Corpuscular Hemoglobin 24.9 pg (28-32) Mean Corpuscular Hemoglobin Concent 30.6 g/dL (31-35) Red Cell Distribution Width 15.6 % (11.7-14.4) Platelet Count 228 x10e3/uL (140-360) Neutrophils (%) (Auto) 89.3 % (38.7-80.0) Lymphocytes (%) (Auto) 4.4 % (18.0-39.1) Monocytes (%) (Auto) 5.3 % (4.4-11.3) Eosinophils (%) (Auto) 0.2 % (0.0-6.0) Basophils (%) (Auto) 0.3 % (0.0-1.0) Neutrophils # (Auto) 8.2 (2.1-6.9) Lymphocytes # (Auto) 0.4 (1.0-3.2) Monocytes # (Auto) 0.5 (0.2-0.8) Eosinophils # (Auto) 0.0 (0.0-0.4) Basophils # (Auto) 0.0 (0.0-0.1) Absolute Immature Granulocyte (auto 0.05 x10e3/uL (0-0.1) Sodium Level 134 mmol/L (136-145) Potassium Level 4.4 mmol/L (3.5-5.1) Chloride Level 102 mmol/L (98-107) Carbon Dioxide Level 18 mmol/L (22-29) Anion Gap 18.4 mmol/L (8-16) Blood Urea Nitrogen 26 mg/dL (7-26) Creatinine 2.07 mg/dL (0.72-1.25) Estimat Glomerular Filtration Rate 33 ML/MIN (60-) BUN/Creatinine Ratio 13 (6-25) Glucose Level 268 mg/dL (74-118) Lactic Acid Level 1.8 mmol/L (0.5-2.0) Calcium Level 9.0 mg/dL (8.4-10.2) Total Bilirubin 0.5 mg/dL (0.2-1.2) Aspartate Amino Transf (AST/SGOT) 12 IU/L (5-34) Alanine Aminotransferase (ALT/SGPT) 9 IU/L (0-55) Alkaline Phosphatase 95 IU/L (40-150) B-Type Natriuretic Peptide 341.0 pg/mL (0-100) Total Protein 7.7 g/dL (6.5-8.1) Albumin 2.9 g/dL (3.5-5.0) Globulin 4.8 g/dL (2.3-3.5) Albumin/Globulin Ratio 0.6 (0.8-2.0) Ethyl Alcohol Level < 10.0 mg/dL (0.0-10.0) Lab results reviewed: Yes Laboratory comments covid 19 test negative (JUSTA GARCIA MD) Imaging Imaging results reviewed: Yes Impressions Procedure: [id number] CT/CT CHEST WO Exam Date: 08/17/19 Exam Time: 2024 REPORT STATUS: Signed EXAM: CT Chest WITHOUT contrast 08/17/2019 8:25 PM INDICATION: ^Y ^hypoxia ^[id number] ^2024 ^Y COMPARISON: Chest x-ray, 08/17/2019 TECHNIQUE: Chest was scanned utilizing a multidetector helical scanner from the lung apex through the level of the adrenal glands without administration of IV contrast. Absence of intravenous contrast decreases sensitivity for detection of lymphadenopathy and vascular pathology. Coronal and sagittal reformations were obtained. Routine protocol was performed. Dose modulation, iterative reconstruction, and/or weight based adjustment of the mA/kV was utilized to reduce the radiation dose to as low as reasonably achievable. IV CONTRAST: None RADIATION DOSE: Total DLP: 550.85 mGy*cm Estimated effective dose: (DLP x 0.014 x size factor) mSv COMPLICATIONS: None FINDINGS: Annotations given as (series/image number). LINES/ TUBES: There is an implanted generator in the soft tissues of the lower left chest laterally with a lead extending along the anterior surface of the sternum. LUNGS AND AIRWAYS: No focal pulmonary opacity or suspicious nodule. Trachea and main bronchi are clear. PLEURA: No pleural effusion or pneumothorax. HEART AND MEDIASTINUM: The thyroid gland is normal. No mediastinal, hilar or axillary lymphadenopathy. The heart is normal in size.. There is no pericardial effusion. There are numerous surgical clips in the mediastinum. The thoracic aorta is atherosclerotic without dilatation. Main pulmonary artery measures 2.8 cm, normal. There is extensive coronary artery calcification seen. UPPER ABDOMEN: Included portions of the unenhanced liver, spleen, pancreas, adrenals and kidneys show no evidence for focal pathology. A small gallstone is seen. The gallbladder appears distended measuring 11.9 cm in length. There is no surrounding inflammation. BONES: No acute bony abnormality. There are degenerative changes in the spine. Wire sternotomy sutures are present. SOFT TISSUES: Superficial surrounding soft tissue shows a ventral hernia containing fat below the sternum. There is a rounded soft tissue density with calcification adjacent to this hernia likely representing subcutaneous fat necrosis. IMPRESSION: 1. No pulmonary consolidation or suspicious nodule. No pleural effusion or pneumothorax. 2. Extensive coronary artery calcification. 3. Cholelithiasis with distention of the gallbladder. No surrounding inflammatory stranding is seen. Signed by: Dr. Gisella Robbins M.D. on 08/17/2019 9:05 PM Dictated By: GISELLA ROBBINS MD 04 Transcribed By: JOHN on 08/17/192104 COPY TO: JUSTA GARCIA MD~ (JUSTA GARCIA MD) Assessment & Plan Medical Decision Making MDM Patient with dyspnea. CBC, CMP, EKG, cardiac enzymes, chest x-ray, troponin 19 ordered to eval for pneumonia, pulmonary edema, myocardial infarction, Covid 19 infection. (JUSTA GARCIA MD) Reassessment Reassessment time: 19:15 Reassessment Patient signed out to Dr Antoine Garcia at 1915 (MAGEN KIM DO) Assessment & Plan Final Impression: (1) Dyspnea (JUSTA GARCIA MD) Depart Disposition: ADMITTED Home Meds Active Scripts Furosemide (LASIX) 40 Mg Tablet, 40 MG PO DAILY for 10 Days, #30 TAB Prov:SENIA BAKER DO 08/23/18 Reported Medications Ferrous Sulfate (FERROUS SULFATE) 324 Mg Tablet.dr 324 MG PO BID 02/06/19 Folic Acid (FOLIC ACID) 0.4 Mg Tablet, 1 MG PO DAILY 02/06/19 Insulin Detemir (LEVEMIR) 100 Unit/1 Ml Vial, 36 HS 02/06/19 Potassium Chloride* (K DUR*) 10 Meq Tabcr, 10 MEQ PO DAILY 02/06/19 Clopidogrel Bisulfate* (PLAVIX) 75 Mg Tablet, 75 MG PO DAILY 12/23/12 Simvastatin (SIMVASTATIN) 40 Mg Tablet, 40 MG PO HS 12/23/12 Enalapril Maleate (VASOTEC) 5 Mg Tablet, 5 MG PO BID 07/05/12 Pioglitazone Hcl (ACTOS) 45 Mg Tablet, 45 MG PO DAILY 07/05/12 MAGEN KIM DO Aug 17, 2019 17:51 JUSTA GARCIA MD Aug 18, 2019 00:27
--- OUTSIDE RECORDS SUMMARY | 2019-08-17 18:20 | XMS REPORT | Clinical Summary ---
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 Last Filed Vital Signs Not on file Plan of Treatment Not on file Results Not on fileafter 08/16/2018 Insurance Payer Benefit Subscriber ID Type Phone Address Plan / Group MEDICARE MEDICARE A xxxxxxxxxxx Medicare B (Home) [place] [address]
--- OUTSIDE RECORDS SUMMARY | 2019-08-17 18:20 | XMS REPORT | Clinical Summary ---
Author Author [facility] ict Organization [facility] ict Address Unknown Phone Unavailable Care Team Providers Care Recreation Therapist Name Role Phone Farhana Brooks MD PCP Allergies No Known Allergies Medications End Date Status Medication Sig Dispensed Refills Start Date Active multivitamin tablet Take 1 tablet 0 by mouth daily. Active simvastatin (ZOCOR) 40 mg Take 1 tablet 90 tablet 1 tabletIndications: Mixed by mouth at 7 hyperlipidemia bedtime nightly. Active BLOOD GLUCOSE METER 1 Each by 1 Each 0 ([employer] VERIO IQ METER) Mis.(Non-Davi 8 monitoring g; Combo kitIndications: Type 2 Route) route diabetes mellitus with as needed for diabetic neuropathy, Other. without long-term current use of insulin Active TRUEPLUS LANCETS 28 USE 100 Each 11 gaugeIndications: Type 2 DIRECTED 8 diabetes mellitus with diabetic neuropathy, without long-term current use of insulin Active carvedilol (COREG) 3.125 Take 3.125 mg 0 mg tablet by mouth 2 times daily (with meals). Active lancets 28 Use 2 times 100 Each gaugeIndications: Type 2 weekly as 9 diabetes mellitus with directed. diabetic neuropathy, without long-term current use of insulin Active alcohol swabs (ALCOHOL Apply to 100 Each PREP PADS) affected 9 PadMIndications: Type 2 area. diabetes mellitus with diabetic neuropathy, without long-term current use of insulin Active furosemide (LASIX) 40 mg TAKE 1 TABLET 90 tablet 0 tabletIndications: Acute BY MOUTH 9 systolic heart failure EVERY DAY Additional information Patient taking differently: 2 TIMES DAILY, Reported on 04/06/2019 4:09 PM Active clopidogrel (PLAVIX) 75 Take 1 tablet 0 mg tablet by mouth 9 daily. Active fluticasone propionate USE 1 SPRAY 16 g 0 (FLONASE) 50 IN EACH 9 mcg/actuation nasal NOSTRIL DAILY sprayIndications: Viral URI with cough Active BLOOD GLUCOSE METER 1 Each by 1 Each 0 (ONETOUCH VERIO IQ METER) Mis.(Non-Davi 0 monitoring g; Combo kitIndications: Type 2 Route) route diabetes mellitus with as needed for diabetic neuropathy, Other. without long-term current use of insulin Active blood glucose (ONETOUCH Use 2 times 50 Each 3 VERIO) test weekly (once 0 stripsIndications: Type 2 per day on diabetes mellitus with Tue,) to diabetic neuropathy, test blood without long-term current sugar. use of insulin Active insulin lispro, Human, INJECT 24 mL 11 (HUMALOG KWIKPEN INSULIN) INSULIN 0 100 unit/mL BEFORE EACH penIndications: Type 2 MEAL diabetes mellitus with ACCORDING THE diabetic neuropathy, SLIDING without long-term current SCALE. use of insulin Active albuterol 90 Inhale 2 1 Inhaler 11 mcg/actuation Puffs by 0 inhalerIndications: mouth 4 times Shortness of breath daily as needed for Wheezing or Shortness of Breath. Active glyBURIDE-metFORMIN Take 1 tablet 90 tablet 3 (GLUCOVANCE) 5-500 mg per by mouth 0 tabletIndications: Type 2 daily (with diabetes mellitus with breakfast) diabetic neuropathy, FOR DIABETES. without long-term current use of insulin Active loratadine (CLARITIN) 10 Take 1 tablet 30 tablet 0 mg tabletIndications: by mouth 0 Seasonal allergies daily. Active dapagliflozin-metformin Take 1 tablet 90 tablet 0 (XIGDUE) 10-500 mg by mouth 0 extended release daily. tabletIndications: Type 2 diabetes mellitus with diabetic neuropathy, without long-term current use of insulin, Chronic systolic heart failure Active pen needle, diabetic 31 Inject under 1 Box 11 0 gauge x 05/20" the skin 4 0 needlesIndications: Type times daily. 2 diabetes mellitus with diabetic neuropathy, without long-term current use of insulin 04/06/2019 Discontinued (Alternate ther apy) blood glucose Use as 1 Kit 0 meterIndications: Type 2 directed.. 7 diabetes mellitus with diabetic neuropathy, without long-term current use of insulin 04/06/2019 Discontinued (Alternate ther apy) blood glucose test 1 Each daily 50 Each stripsIndications: Type 2 to test blood 7 diabetes mellitus with sugar. diabetic neuropathy, without long-term current use of insulin 04/06/2019 Discontinued (Alternate ther apy) lancets (LANCETS,ULTRA see 300 Each THIN) 26 gauge administratio 7 MiscIndications: n Uncontrolled type 2 instruction. diabetes mellitus with foot ulcer, without long-term current use of insulin 06/21/2019 Discontinued (Reorder) loratadine (CLARITIN) 10 Take 10 mg by 0 mg tablet mouth daily. 04/06/2019 Discontinued (Alternate ther apy) glyBURIDE-metFORMIN Take 2 360 tablet 3 (GLUCOVANCE) 5-500 mg per tablets by 8 tabletIndications: mouth 2 times Uncontrolled type 2 daily (with diabetes mellitus with meals) For foot ulcer, without diabetes. long-term current use of insulin 02/24/2019 Discontinued (Reorder) pioglitazone (ACTOS) 30 Take 1 tablet 90 tablet 3 mg tabletIndications: by mouth 8 Uncontrolled type 2 daily For diabetes mellitus with diabetes. foot ulcer, without long-term current use of insulin, Essential hypertension 06/21/2019 Discontinued (Alternate ther apy) lisinopril (ZESTRIL) 2.5 Take 1 tablet 90 tablet 3 mg tabletIndications: by mouth 8 Microalbuminuria daily For kidney protection. 04/06/2019 Discontinued (Alternate ther apy) blood glucose (INFINITY daily. 50 Each TEST STRIPS) test 9 stripsIndications: Type 2 diabetes mellitus with diabetic neuropathy, without long-term current use of insulin 04/06/2019 Discontinued (Alternate ther apy) blood glucose (TRUE 1 Each 2 200 Each METRIX GLUCOSE TEST times daily 9 STRIP) test To test blood stripsIndications: Type 2 sugar. diabetes mellitus with diabetic neuropathy, without long-term current use of insulin 04/06/2019 Discontinued (Alternate ther apy) TRUE METRIX GLUCOSE TEST TEST BLOOD 100 Each 1 0 STRIP test SUGAR 2 TIMES 9 stripsIndications: Type 2 A WEEK, ONCE diabetes mellitus with A DAY, ON diabetic neuropathy, TUESDAY AND without long-term current TUESDAY. use of insulin 06/14/2019 Discontinued (Reorder) albuterol 90 Inhale 2 1 Inhaler 1 mcg/actuation Puffs by 9 inhalerIndications: mouth 4 times Shortness of breath daily as needed for Wheezing or Shortness of Breath. 11/27/2018 Discontinued (Reorder) fluticasone propionate USE 1 SPRAY 16 g 1 (FLONASE) 50 IN EACH 9 mcg/actuation nasal NOSTRIL DAILY sprayIndications: Viral URI with cough 03/19/2019 Discontinued (Alternate ther apy) dextromethorphan-guaifene Take 10 mL by 100 mL 3 sin 15-125 mg/5 mL mouth every 6 9 LiqdIndications: Cough hours as needed (cough). 03/19/2019 Discontinued benzonatate (TESSALON Take 1 20 capsule 0 06/06 PERLES) 100 mg capsule by 9 capsuleIndications: Cough mouth 3 times daily as needed for up to 7 days for Cough. 09/05/2018 Ramelteon 8 mg Take 1 tablet 5 tablet 0 tabletIndications: Risk by mouth at 9 factors for obstructive bedtime sleep apnea nightly for 5 doses. 05/23/2019 Discontinued pioglitazone (ACTOS) 30 TAKE 1 TABLET 90 tablet 0 mg tabletIndications: BY MOUTH 9 Uncontrolled type 2 DAILY FOR diabetes mellitus with DIABETES foot ulcer, without long-term current use of insulin, Essential hypertension 04/06/2019 Discontinued (Therapy comple naila) benzonatate (TESSALON) TAKE ONE 20 capsule 0 100 mg CAPSULE BY 0 capsuleIndications: Cough MOUTH THREE TIMES DAILY NEEDED FOR COUGH 04/27/2019 Discontinued insulin lispro, Human, Inject 24 mL 11 (HUMALOG) 100 unit/mL insulin 0 penIndications: Type 2 before each diabetes mellitus with meal diabetic neuropathy, according to without long-term current the sliding use of insulin scale. 06/21/2019 Discontinued (Side effects) pioglitazone (ACTOS) 30 TAKE 1 TABLET 90 tablet 0 mg tabletIndications: BY MOUTH 0 Uncontrolled type 2 DAILY FOR diabetes mellitus with DIABETES foot ulcer, without long-term current use of insulin, Essential hypertension 07/03/2019 benzonatate (TESSALON Take 1 20 capsule 0 06/06 ARABELLA) 100 mg capsule by 0 capsuleIndications: mouth 3 times Allergic cough daily as needed for up to 7 days for Cough. Active Problems Problem Noted Date NSTEMI (non-ST elevated myocardial infarction) 09/25 Overview: EF of 45% Microalbuminuria 02/14/2018 Overview: ACEI started 02/21 Chronic systolic heart failure 11/03/2017 Overview: EF 20% per pt report L ast Assessment & Plan: Foot ulcer, right 07/17/2015 Overview: Chronic, Charcot foot, partial amputati on Type 2 diabetes mellitus with diabetic neuropathy Overview: Best regimen: Actos 30 mg and Glyburide -metformin 5/500 2 BID. Retinopathy first diagnosed around 2014 Coronary artery disease 06/05/2012 Overview: CABG 2012, quadruple bypass EF per pt report 49% 05/19 HTN (hypertension) Hyperlipidemia Resolved Problems Problem Noted Date Resolved Date Hypothyroidism 07/17/2015 04/06/2019 Overview: 06/20. L-T4 25 mcg started, taken for on e month only. 03/23 - TSH wnl. 03/25 - pharmacy refill sent for L-T4 25 mcg. Declined. Pt reports not taking it in a long time. Will plan to recheck TSH on next visit. Encounters Care Team Description Date Type Specialty Farhana Brooks MD Uncontrolled type 2 diabetes mellitus wi th foot ulcer, without long-term current use of insulin; Essential hypertension 08/11/2019 Refill Family Practice Drew Mauricio MD Cough 07/30/2019 Refill Family Practice Yamil Bernardo Bilateral lower extremity edema (Primary Dx); Type 2 diabetes mellitus with diabetic neuropathy, with long-term current use of insulin; History of right below knee amputation; Chronic systolic heart failure; Coronary artery disease involving ugashik coronary artery of ugashik heart without angina pectoris; Essential hypertension 06/21/2019 Office Visit Family Practice Elizabeth Hoyos MD Seasonal allergies; Educated About Covid-19 Virus Infection; Bilateral lower extremity edema 06/21/2019 Office Visit Family Practice Elizabeth Hoyos MD ERRONEOUS ENCOUNTER--DISREGARD (Primary Dx) 06/07/2019 Office Visit Family Practice Farhana Brooks MD Uncontrolled type 2 diabetes mellitus wi th foot ulcer, without long-term current use of insulin; Essential hypertension 05/23/2019 Refill Family Practice Farhana Brooks MD Type 2 diabetes mellitus with diabetic n europathy, without long-term current use of insulin 04/27/2019 Refill Family Practice Farhana Brooks MD Essential hypertension (Primary Dx); Type 2 diabetes mellitus with diabetic neuropathy, without long-term current use of insulin; Coronary artery disease involving ugashik coronary artery of ugashik heart without angina pectoris; Microalbuminuria; Encounter for colorectal cancer screening 04/06/2019 Office Visit [facility] Drew Mauricio MD Cough 03/19/2019 Refill [facility] Practice Farhana Brooks MD Uncontrolled type 2 diabetes mellitus wi th foot ulcer, without long-term current use of insulin; Essential hypertension 02/24/2019 Refill [facility] Mayte Dupont MD Viral URI with cough 11/27/2018 Refill [facility] Kp Prajapati, Resident 09/25/2018 Orders Only [facility] Mayte Dupont MD Joseph, Danny, Resident Risk factors for obstructive sleep apnea (Primary Dx); BMI 34.0-34.9,adult 08/31/2018 Office Visit Family Practice after 08/16/2018 Immunizations Name Administration Dates Next Due Influenza <Unspecified> 02/04/2019, 11/05/2017, 03/2016 Influenza Vaccine 03/13/2015 PPV 23 Pneumococcal 03/03/2009 Polysaccaride Td Tetanus, diphtheria 03/07/2006 Toxoids Vaccine Tdap (Tetanus Toxoid, 03/29/2017 Reduced Diphtheria Toxoid And Acellular Pertussis, Absorbed) Family History Medical History Relation Name Comments Diabetes Mother Relation Name Status Comments Mother Social History Date Tobacco Use Types Packs/Day Years Used Never Smoker Smokeless Tobacco: Never Used Drinks/Week oz/Week Comments Alcohol Use 0 Standard drinks or equivalent 0.0 Not Asked Sex Assigned at Date Recorded Not on file Industry Job Start Date Occupation Not on file Not on file Not on file Travel End Travel History Travel Start No recent travel history available. Last Filed Vital Signs Reading Time Taken Comments Vital Sign 114/56 06/21/2019 3:18 PM CDT Blood Pressure 85 06/21/2019 3:18 PM CDT Pulse 36.4 C (97.6 F) 06/21/2019 3:18 PM CDT Temperature 22 06/21/2019 3:18 PM CDT Respiratory Rate 96% 06/21/2019 3:18 PM CDT Oxygen Saturation - - Inhaled Oxygen Concentration 115.7 kg (255 lb) 08/31/2018 1:29 PM CDT Weight 182.9 cm (6') 08/31/2018 1:29 PM CDT Height 34.58 08/31/2018 1:29 PM CDT Body Mass Index Plan of Treatment Health Maintenance Due Date Last Done Comments CORONARY ARTERY DISEASE 1978 AGE 18 AND UP Colorectal Cancer Scrn 2008 Annual (FIT/FOBT) Age 50 to 75 DM Retinal Exam (Yearly) 03/22/2018 03/22/2017, 0 08/05/2014 IMM Influenza Seasonal 12/06/2019 02/04/2019, 03/2017, 11/05/2016, Dec to May (>/= 19 yrs) Additional history exists DM Foot Exam (Yearly) 04/06/2020 04/06/2019, 08/2017, 03/13/2015 DM HGBA1C (Yearly) 04/06/2020 04/06/2019, 017, 02/04/2015 DM Microalbumin Urine 04/10/2020 04/10/2019, 03/09, 04/06/2019, Scrn (Yearly) Additional history exists Procedures Comments Procedure Name Priority Date/Time Associated Diag nosis HEMOGLOBIN A1C Routine 06/21/2019 Type 2 diabetes mellitus 3:52 PM CDT with diabetic neuropathy, with long-term current use of insulin DIABETES PATIENT Routine 04/06/2019 EDUCATION 4:32 PM NOTE SPECIALIST [facility] CKD PROGRAM Routine 04/06/2019 4:32 PM NOTE SPECIALIST CARDIOVASCULAR RISK Routine 04/06/2019 ASSESSMENT 4:32 PM NOTE SPECIALIST CBC WITH Routine 04/06/2019 Essential hyper tension DIFFERENTIAL/PLATELET 4:32 PM NOTE SPECIALIST Type 2 diabetes mellitus with diabetic neuropathy, without long-term current use of insulin COMPREHENSIVE METABOLIC [facility]ine [facility]/06/2019 [facility](14[facility] 4:32 PM NOTE SPECIALIST Type 2 diabetes phil litus with diabetic neuropathy, without long-term current use of insulin MICROALBUMIN/CREATININE Routine 04/06/2019 Essent ial hypertension RATIO, RANDOM URINE 4:32 PM NOTE SPECIALIST Type 2 diabetes m ellitus with diabetic neuropathy, without long-term current use of insulin Microalbuminuria LIPID PANEL Routine 04/06/2019 Type 2 diabetes mellitus 4:32 PM NOTE SPECIALIST with diabetic neuropathy, without long-term current use of insulin Coronary artery disease involving ugashik coronary artery of ugashik heart without angina pectoris HEMOGLOBIN A1C Routine 04/06/2019 Type 2 diabetes mellitus 4:32 PM NOTE SPECIALIST with diabetic neuropathy, without long-term current use of insulin after 08/16/2018 Results * HEMOGLOBIN A1C (06/21/2019 3:52 PM CDT) Only the most recent of 2 results within the time period is included. Hemoglobin A1c 10.6 (H) 4.8 - 5.6 % [facility] 01 Comment: Prediabetes: 5.7 - 6.4 Diabetes: >6.4 Glycemic control for adults with diabetes: <7.0 Specimen Blood Narrative Performed At Performed at: 01 - [facility] [address] [place] [address] [address] [employer] Supervisor: Anton Moran MD, Phone: [phone] Performing Organization Address City/State/Zipcode Ph one Number [facility] [address] [id number] [facility] 01 * COMPREHENSIVE METABOLIC PANEL(14) (04/06/2019 4:32 PM NOTE SPECIALIST) Glucose, Serum 359 (H) 65 - 99 mg/dL [facility] 01 BUN 45 (H) 8 - 27 mg/dL [facility] 01 Creatinine, 1.55 (H) 0.76 - 1.27 mg/dL [facility] 01 Serum eGFR If 48 (L) >59 mL/min/1.73 [facility] 01 NonAfricn Am eGFR If Africn 55 (L) >59 mL/min/1.73 [facility] 01 Am BUN/Creatinine 29 (H) 10 - 24 [facility] 01 Ratio Sodium, Serum 134 134 - 144 mmol/L [facility] 01 Potassium, 4.7 3.5 - 5.2 mmol/L [facility] 01 Serum Chloride, Serum 99 96 - 106 mmol/L [facility] 01 Carbon Dioxide, 21 20 - 29 mmol/L [facility] 01 Total Calcium, Serum 8.5 (L) 8.6 - 10.2 mg/dL [facility] 01 Protein, Total, 7.0 6.0 - 8.5 g/dL [facility] 01 Serum Albumin, Serum 3.3 (L)Comment: 3.8 - 4.9 g/dL [facility] 01 Please note reference interval change Globulin, Total 3.7 1.5 - 4.5 g/dL [facility] 01 A/G Ratio 0.9 (L) 1.2 - 2.2 [facility] 01 Bilirubin, <0.2 0.0 - 1.2 mg/dL [facility] 01 Total Alkaline 115 39 - 117 IU/L [facility] 01 Phosphatase AST (SGOT) 12 0 - 40 IU/L [facility] 01 ALT (SGPT) 9 0 - 44 IU/L [facility] 01 Specimen Narrative Performed At Performed at: [facility] [address] [place] [id number] [employer] Supervisor: Anton Moran MD, Phone: [phone] Performing Organization Address City/State/Zipcode Ph one Number [facility] [address] [facility] [place] [address] [facility] 01 * CBC WITH DIFFERENTIAL/PLATELET (04/06/2019 4:32 PM NOTE SPECIALIST) WBC 6.3 3.4 - 10.8 x10E3/uL [facility] 01 RBC 3.94 (L) 4.14 - 5.80 x10E6/uL [facility] 0 1 Hemoglobin 10.4 (L) 13.0 - 17.7 g/dL [facility] 01 Hematocrit 35.4 (L) 37.5 - 51.0 % [facility] 01 MCV 90 79 - 97 fL [facility] 01 MCH 26.4 (L) 26.6 - 33.0 pg [facility] 01 MCHC 29.4 (L) 31.5 - 35.7 g/dL [facility] 01 RDW 15.4 11.6 - 15.4 % [facility] 01 Platelets 260 150 - 450 x10E3/uL [facility] 01 Neutrophils 71 Not Estab. % [facility] 01 Lymphs 18 Not Estab. % [facility] 01 Monocytes 8 Not Estab. % [facility] 01 Eos 3 Not Estab. % [facility] 01 Basos 0 Not Estab. % [facility] 01 Neutrophils 4.5 1.4 - 7.0 x10E3/uL [facility] 01 (Absolute) Lymphs 1.1 0.7 - 3.1 x10E3/uL [facility] 01 (Absolute) Monocytes(Absol 0.5 0.1 - 0.9 x10E3/uL [facility] 01 [place]) Eos (Absolute) 0.2 0.0 - 0.4 x10E3/uL [facility] 01 Baso (Absolute) 0.0 0.0 - 0.2 x10E3/uL [facility] 01 Immature 0 Not Estab. % [facility] 01 Granulocytes Immature Grans 0.0 0.0 - 0.1 x10E3/uL [facility] 01 (Abs) Specimen Blood Narrative Performed At Performed at: 01 - [facility] [address] [place] [id number] [employer] Supervisor: Anton Moran MD, Phone: [phone] Performing Organization Address [facility]State[facility] Ph one Number [facility] [address] [phone] [facility] 01 * [facility] CKD Program (04/06/2019 4:32 PM NOTE SPECIALIST) Interpretation Note [facility] 01 Comment: - CHRONIC KIDNEY DISEASE: EGFR, BLOOD PRESSURE, AND PROTEINURIA ASSESSMENT Patient's eGFR was previously outside the scope of the program and now is 48 mL/min/1.73mE2 corresponding to CKD stage 3a. Multiply eGFR by 1.159 if patient is . Potassium is within goal and has not changed significantly, was 4.7 and now is 4.7 mmol/L. Albumin:Creatinine ratio is not elevated and has decreased, was 96.7 and now is 8.3 mg/g creat. If no other markers of kidney damage are present consider measurement of cystatin C to confirm diagnosis of CKD. Glycemic control (HB A1c: 10.7 EGFR, BLOOD PRESSURE, AND PROTEINURIA TREATMENT SUGGESTIONS - eGFR is no longer below the expected value and has decreased, was 68 and now is 48 mL/min/1.73mE2. Based on current eGFR and absence of significant proteinuria, patient is at moderately increased risk for adverse outcomes such as CKD progression, CVD, and mortality. Guidelines recommend a target blood pressure of 140/90 mmHg or less in CKD patients to reduce cardiovascular risk and CKD progression. EGFR, BLOOD PRESSURE, AND PROTEINURIA FOLLOW-UP - Spot Urine Panel (Albumin preferred) within 12 months; Hemoglobin A1C and fasting Renal Panel within 3 months; - BONE and MINERAL ASSESSMENT Corrected calcium is within goal and has not changed significantly, was 8.8 and now is 9.1 mg/dL. Serum calcium was corrected for low serum albumin. Carbon Dioxide is below goal and has decreased, was 22 and now is 21 mmol/L. Guidelines recommend the measurement of 25-hydroxy vitamin D in patients with CKD. BONE and MINERAL TREATMENT SUGGESTIONS - Interpretations require simultaneous measurements of serum calcium and phosphorus. If not on alkali, begin sodium bicarbonate, one 650 mg pill 2-3 times daily, otherwise increase dose. BONE and MINERAL FOLLOW-UP - fasting Renal Panel within 3 months; fasting PTH with Renal Panel and 25-Hydroxy Vitamin D are recommended by KDOQI guidelines, at least yearly; - LIPIDS ASSESSMENT LDL-C is normal and has risen, was 74 and now is 86 mg/dL. Triglyceride is borderline high and has not changed significantly, was 176 and now is 174 mg/dL. Non-HDL Cholesterol is normal and has risen, was 109 and now is 121 mg/dL. HDL-C is normal and has not changed significantly, was 42 and now is 42 mg/dL. LIPIDS TREATMENT SUGGESTIONS - Therapeutic lifestyle changes are always valuable to maintain optimal blood lipid status (diet, exercise, weight management). If at least a 50% LDL reduction from baseline has not been achieved, begin or increase statin. Consider measurement of LDL particle number or Apo B to adjudicate need for further LDL lowering therapy. If statin cannot be tolerated or increased, alternatives include use of an intestinal agent (ezetimibe or bile acid sequestrant), niacin, and/or fish oil. LIPIDS FOLLOW-UP - fasting Lipid Panel within 12 months; - ANEMIA ASSESSMENT Hemoglobin is low and has risen, was 9.8 and now is 10.4 g/dL. Hemoglobin target assumes ANGELA is not in use. Anemia is greater than expected from CKD alone. ANEMIA TREATMENT SUGGESTIONS - Iron deficiency is a common cause of anemia in CKD. Recommend measurement of Ferritin and TSAT. ANEMIA FOLLOW-UP - Fe/TIBC (TSAT) and Ferritin with CBC is due; CBC within 3 months; - DISCLAIMER These assessments and treatment suggestions are provided as a convenience in support of the physician-patient relationship and are not intended to replace the physician's clinical judgment. They are derived from national guidelines in addition to other evidence and expert opinion. The clinician should consider this information within the context of clinical opinion and the individual patient. SEE GUIDANCE FOR CHRONIC KIDNEY DISEASE PROGRAM: Kidney Disease Improving Global Outcomes (KDIGO) clinical practice guidelines are at http://kdigo.org/home/guidelin es/. National Kidney Foundation Kidney Disease Outcomes Quality Initiative (KDOQI (TM)), with its limitations and disclaimers, are at www.kidney.org/professionals/K DOQI. This program is intended for patients who have been diagnosed with stages 3, 4, or pre-dialysis 5 CKD. It is not intended for children, patients, or transplant patients. Specimen Narrative Performed At Performed at: [email or web address] [facility] [address] [place], [place] [id number] [employer] Supervisor: Ventura Tristan MD, Phone: [phone] Performing Organization Address City/State/Zipcode Ph one Number [facility] [address] [facility], [place] [address] [facility] 01 * Cardiovascular Risk Assessment (04/06/2019 4:32 PM NOTE SPECIALIST) Interpretation NoteComment: Supplemental [facility] 01 report is available. PDF Image Not applicable [facility] 01 Specimen Narrative Performed At Performed at: [facility] [email or web address] [facility] [address] [place], [place] [id number] [employer] Supervisor: Ventura Tristan MD, Phone: [phone] Performing Organization Address [facility] one Number [facility] [address] [place] [address] [facility] 01 * MICROALBUMIN/CREATININE RATIO, RANDOM URINE (04/06/2019 4:32 PM NOTE SPECIALIST) Creatinine, 160.7 Not Estab. mg/dL [facility] 01 Urine Microalbumin, 13.4 Not Estab. ug/mL [facility] 01 Urine Microalb/Creat 8 0 - 29 mg/g creat [facility] 01 Ratio Comment: Normal: 0 - 29 Moderately increased: 30 - 300 Severely increased: >300 Please note reference interval change Specimen Urine Narrative Performed At [facility]formed [facility] [address] [place] [id number] [employer] Supervisor: Anton Moran MD, Phone: [phone] Performing Organization Address [facility] one Number [facility] [address] [place] [address] [facility] 01 * LIPID PANEL (04/06/2019 4:32 PM NOTE SPECIALIST) Cholestrol, 163 100 - 199 mg/dL [facility] 01 Total Triglyceride 174 (H) 0 - 149 mg/dL [facility] 01 HDL 42 >39 mg/dL [facility] 01 VLDL Cholestrol 35 5 - 40 mg/dL [facility] 01 Calc LDL Cholestrol 86 0 - 99 mg/dL [facility] 01 Calc Specimen Narrative Performed At Performed at: - [facility] [place] [address] [address] [employer] Supervisor: Anton Moran MD, Phone: [phone] Performing Organization Address [facility]/On License Of [facility] one Number [facility] [address] [place] [address] 145 [facility] 01 * DIABETES PATIENT EDUCATION (04/06/2019 4:32 PM NOTE SPECIALIST) PDF Image Not applicable [facility] 01 Specimen Narrative Performed At Performed at: [email or web address] [address] [place], [place] [id number] [employer] Supervisor: Ventura Tristan MD, Phone: [phone] Performing Organization Address City/State/Zipcode Ph one Number [facility] [address] [place] [address] 145 [facility] 01 after 08/16/2018
--- OUTSIDE RECORDS SUMMARY | 2019-08-17 18:21 | XMS REPORT | Continuity of Care Document ---
Author Author [facility] t Organization [facility] Address [address] [place] [address] Phone Unavailable Care Team Providers Care Development Officer Name Role Phone ESTRELLA KIM MD PCP ROCHELLE DE LA ROSA Attphys Unavailable ESTRELLA KIM Attphys Unavailable Gamal PAN PULLER, MELT HOUSE DRAG OPERATOR, M Thu Attphys Unavailable MIKAYLA, S AMBICA Attphys Unavailable SANG, Judy CARTWRIGHT Attphys Unavailable KEEGAN, P STACY Attphys Unavailable YEAGER, I MARY Attphys Unavailable ROCHELLE DE LA ROSA Admphyfredy Unavailable ESTRELLA KIM Admphyfredy Unavailable Payers Payer Name Policy Type Policy Number Effective Date Expiration Date Fredy caputo Medicare A & B [id number] 2000 00:00:00 [facility] MEDICAREMEDICARE A BxxxxxxxxxxxMedicare xxxxxxxxxxx [facility] Problems Condition Name Condition Details Condition Category Status Onset Date Resolution Date Last Treatment Date Treating Clinician Comments Source History of diabetic ulcer of foot History of diabetic ulcer of f oot Problem Active [facility] Back pain Back pain Problem Active [facility] Cellulitis Cellulitis Problem Active [facility] Cellulitis of right lower extremity Cellulitis of right leg Problem Active [facility] Fever Fever Problem Active [facility] Type 1 diabetes mellitus Type 1 diabetes Problem Active [facility] Allergies, Adverse Reactions, Alerts Allergy Name Allergy Type Status Severity Reaction(s) Onset Date Inacti ve Date Treating Clinician Comments Source No Known Allergies DA Active U 2018-11-20 00:00:00 [facility] No Known Allergies DA Active U 2018-08-24 00:00:00 [facility] No Known Allergies DA Active U 2018-07-02 00:00:00 [facility] No Known Allergies DA Active U 2017-02-24 00:00:00 [facility] Social History Social Habit Start Date Stop Date Quantity Comments Source Sex Assigned At [facility] Medications Ordered Medication Name Filled Medication Name Start Date Stop Da te Current Medication? Ordering Clinician Indication Dosage Frequency Signature (SIG) Comments Components Source Furosemide (Lasix) 40 Mg Tablet Furosemide (Lasix) 40 Mg Tab let 2018-08-23 00:00:00 Yes Senia Albarado Do 40 Daily [facility] Albuterol Sulfate (Ventolin Hfa) 18 Gm Hfa.aer.ad, 1-2 Applic Inhalation Albuterol Sulfate (Ventolin Hfa) 18 Gm Hfa.aer.ad, 1-2 Applic Inhalation 2017-03-25 00:00:00 2019-04-27 00:00:00 No Mary Yeager Md Q2-3 Hrs Prn as needed for Shortness Of Breath/Wheezing [facility] Doxycycline Hyclate 100 Mg Capsule, 100 Mg Oral Doxycy lopez Hyclate 100 Mg Capsule, 100 Mg Oral 2017-03-25 00:00:00 2019-04-27 00:00:00 No Deshaun Yeager Md 100 Twice A Day [facility] Prednisone 20 Mg Tab, 40 Mg Oral Prednisone 20 Mg Tab, 40 Mg Oral 2017-03-25 00:00:00 2019-04-27 00:00:00 No Mary Yeager Md 40 Daily [facility] Clopidogrel Bisulfate (Plavix) 75 Mg Tablet Clopidogre l Bisulfate (Plavix) 75 Mg Tablet Yes 75 Daily [facility] Enalapril Maleate (Vasotec) 5 Mg Tablet Enalapril Maleate (V asotec) 5 Mg Tablet Yes 5 Twice A Day [facility] Ferrous Sulfate 324 Mg Tablet. Ferrous Sulfate 324 Mg Tablet. Yes 324 Twice A Day [facility] Folic Acid 0.4 Mg Tablet Folic Acid 0.4 Mg Tablet Yes 1 Daily [facility] Insulin Detemir (Levemir) 100 Unit/1 Ml Vial Insulin D etemir (Levemir) 100 Unit/1 Ml Vial Yes 36 Bedtime [facility] Pioglitazone Hcl (Actos) 45 Mg Tablet Pioglitazone Hcl (Actos) 45 M g Tablet Yes 45 Daily [facility] Potassium Chloride (K Dur*) 10 Meq Tabcr Potassium Chl oride (K Dur*) 10 Meq Tabcr Yes 10 Daily [facility] Simvastatin 40 Mg Tablet Simvastatin 40 Mg Tablet Yes 40 Bedtime [facility] Atorvastatin Calcium 80 Mg Tablet, 80 Mg Oral Atorvast atin Calcium 80 Mg Tablet, 80 Mg Oral 2019-04-27 00:00:00 No 80 Daily [facility] Glyburide/Metformin Hcl (Glyburide-Metfo rmin 5-500 Mg) 1 Each Tablet, 10-1000 Mg Oral Glyburide/Metformin Hcl (Glyburide-Metfo rmin 5-500 Mg) 1 Each Tablet, 10- 1000 Mg Oral 2019-04-27 00:00:00 No Twice Daily With Meals [facility] Loratadine (Claritin) 10 Mg Tablet, 10 Mg Oral Loratad ine (Claritin) 10 Mg Tablet, 10 Mg Oral 2019-04-27 00:00:00 No 10 Daily [facility] Metoprolol Tartrate 25 Mg Tablet, 25 Mg Oral Metoprolo l Tartrate 25 Mg Tablet, 25 Mg Oral 2019-04-27 00:00:00 No 25 Twice A Day [facility] Nitroglycerin (Nitrostat) 0.4 Mg Tab.subl, 0.4 Mg Subl ingual Nitroglycerin (Nitrostat) 0.4 Mg Tab.subl, 0.4 Mg Sublingual 2019-04-27 00:00:00 No .4 Every 5 Minutes as needed [facility] Metformin Hcl 1,000 Mg Tablet, 1000 Mg Oral Metformin Hcl 1,000 Mg Tablet, 1000 Mg Oral 2012-12-23 00:00:00 No 1000 Twice A Day [facility] Hydrocodone Bit/Acetaminophen (Xodol 5-300 Tablet) 1 E ach Tablet, Hydrocodone Bit/Acetaminophen (Xodol 5-300 Tablet) 1 Each Tablet, 2012-12-22 00:00:00 No As Needed [facility] Mvi , 1 Tab Oral Mvi , 1 Tab Oral 2012-12-22 00:00:00 No 1 Daily [facility] Hydromorphone Hcl/Pf (Dilaudid 1 Mg/Ml Ampul) 1 Mg/1 M l Ampul, 1 Mg Intraven Hydromorphone Hcl/Pf (Dilaudid 1 Mg/Ml Ampul) 1 Mg/1 Ml Ampul, 1 Mg Intraven 2012-10-09 00:00:00 No 1 Every 6 Hours as nee ded [facility] Hydromorphone Hcl/Pf (Dilaudid 2 Mg/Ml Ampul) 2 Mg/1 M l Ampul, 2 Mg Intraven Hydromorphone Hcl/Pf (Dilaudid 2 Mg/Ml Ampul) 2 Mg/1 Ml Ampul, 2 Mg Intraven 2012-10-09 00:00:00 No 2 Every 6 Hours as nee ded [facility] Metronidazole (Flagyl) 500 Mg Tablet, 500 Mg Oral Metr onidazole (Flagyl) 500 Mg Tablet, 500 Mg Oral 2012-10-09 00:00:00 No 500 Thre e Times A Day [facility] Vancomycin Hcl (Vancomycin Hcl 1G/200 Ml Bag) 1 G/250 Ml Soln, 1 Gm Intraven Vancomycin Hcl (Vancomycin Hcl 1G/200 Ml Bag) 1 G/250 Ml Soln, 1 Gm Intraven 2012-10-09 00:00:00 No 1 Every 12 Hours [facility] Cephalexin Monohydrate (Keflex) 500 Mg Capsule, 500 Mg Oral Cephalexin Monohydrate (Keflex) 500 Mg Capsule, 500 Mg Oral 2012-07-24 00:00:00 No 500 Four Times Daily [facility] Clopidogrel Bisulfate (Plavix) 75 Mg Tablet, 75 Mg Ora l Clopidogrel Bisulfate (Plavix) 75 Mg Tablet, 75 Mg Oral 2012-07-24 00:00:00 No 75 Daily [facility] Procedures Procedure Date / Time Performed Performing Clinician [facility] e Computed tomography, lower extremity; without contrast material 2019-04-28 00:00:00 CATHLEEN DUNN [facility] FLUOROSCOPY OF MULT COR A GRAFT USING L OSM CONTRAST 2019-02 00:00:00 STACY SMITH [facility] FLUOROSCOPY OF MULT COR ART USING L OSM CONTRAST 2019-02-08 00:00:00 STACY SMITH [facility] FLUOROSCOPY OF LEFT HEART USING LOW OSMOLAR CONTRAST 2019-02 00:00:00 STACY SMITH [facility] FLUOROSCOPY OF THORACIC AORTA USING LOW OSMOLAR CONTRAST 201 11-16-04 00:00:00 STACY SMITH [facility] MEASURE OF CARDIAC SAMPL & PRESSURE, L HEART, PERC APPROACH 2019-02-08 00:00:00 STACY SMITH [facility] CT of abdomen and pelvis without contrast 2019-02-05 00:00:00 LYNETTE PEARCE [facility] Encounters Start Date/Time End Date/Time Encounter Type Ad[facility] Encounter ID Source 2019-04-27 03:12:00 2019-04-30 20:17:00 Discharged Inpatient 1 ROCHELLE DE LA ROSA [facility] [id number] [facility] 2019-02-05 18:11:00 2019-02-09 18:00:00 Discharged Inpatient 1 KIMESTRELLA [facility] [id number] [facility] 2018-08-22 19:52:00 2018-08-23 02:50:00 Departed Emergency Room 1 SENIA DEGROOT [facility] [id number] [facility] 2018-02-07 00:00:00 2018-02-07 00:00:00 Outpatient [facility] [id number] [facility] 2017-11-03 10:58:34 2017-11-03 10:58:34 Outpatient [facility] [id number] [facility] 2017-07-06 04:31:00 2017-07-06 06:26:00 Departed Emergency Room ER CHAY DOMÍNGUEZ [facility] [id number] [facility] 2017-05-30 07:01:00 2017-05-30 11:28:00 Departed Emergency Room ER STACY ALLISON [facility] [id number] [facility] 2017-05-24 09:24:31 2017-05-24 09:24:31 Outpatient [facility] [id number] [facility] 2017-03-29 15:01:27 2017-03-29 15:01:27 Outpatient [facility] [id number] [facility] 2017-03-25 07:07:00 2017-03-25 10:44:00 Departed Emergency Room ER MARY YEAGER [facility] [id number] [facility] Results Test Description Test Time Test Comments Results Result Comments Source CHEST XRAY LINE PLACEMENT 2019-04-30 17:14:[address] [place] [address] Patient Name: DMITRY ARMSTRONG JR MR #: [id number] : 1960 Age/Sex: 58/M Req #: [id number] Adm Physician: ROCHELLE DE LA ROSA MD Ordered by: ESTRELLA KIM MD Report #: [id number] Location: MED/SURG3 Room/Bed: [facility] Procedure: [id number] DX/CHEST XRAY LINE PLACEMENT Exam Date: Exam Time: REPORT STATUS: Signed EXAMINATION: CHEST XRAY LINE PLACEMENT INDICATION: Line placement COMPARISON: Chest radiograph 04/26/2019 FINDINGS: LINES/TUBES:Right PICC line terminates at the superior cavoatrial junction. Pacing lead unchanged. LUNGS:The lungs are moderately inflated. There is perihilar fullness and indistinctness of the pulmonary vasculature. PLEURA:No pleural effusion or pneumothorax. MEDIASTINUM:Cardiomediastinal silhouette is stably enlarged. BONES/SOFT TISSUES:No acute osseous injury. ABDOMEN:No free air under the diaphragm. IMPRESSION: Right PICC line terminates at the superior cavoatrial junction. Otherwise, no significant interval change. Signed by: Perez Currie MD on 04/30/2019 5:16 PM Dictated By: PEREZ CURRIE MD 15 Transcribed By: JOHN on 04/30/191715 COPY TO: ESTRELLA KIM MD Bedside Glucose 2019-04-30 15:44:00 Test Item Bedside Glucose (test code = 26557-3) 199 70-120 H Meter ID: [id number] 2019-04-30 13:03:00* Test Item Value Reference Range Interpretation Comments Sodium Level (test code = 2951-2) 135 136-145 L [facility]Potassium Xukqb1460-20-47 13:03:00* Test Item Value Reference Range Interpretation Comments Potassium Level (test code = 2823-3) 4.1 3.5-5.1 [facility] CampusChloride Tjlzs4256-14-54 13:03:00* Test Item Value Reference Range Interpretation Comments Chloride Level (test code = 2075-0) 101 98-107 [facility] CampusCarbon Dioxide Bacvo3484-38-61 13:03:00* Test Item Value Reference Range Interpretation Comments Carbon Dioxide Level (test code = 2028-9) 27 22-29 [facility] CampusAnion Glj8652-88-29 13:03:00* Test Item Value Reference Range Interpretation Comments Anion Gap (test code = 49371-4) 11.1 8-16 [facility] CampusBlood Urea Dijnvsxy2274-56-16 13:03:00* Test Item Value Reference Range Interpretation Comments Blood Urea Nitrogen (test code = 3094-0) 17 - [facility] CampusCreatinine2020-02-24 13:03:00* Test Item Value Reference Range Interpretation Comments Creatinine (test code = 2160-0) 1.27 0.72-1.25 H [facility] CampusBUN/Creatinine Qkitd8680-14-85 13:03:00* Test Item Value Reference Range Interpretation Comments BUN/Creatinine Ratio (test code = 3097-3) 13 08-29 [facility] CampusEstimat Glomerular Filtration Rate 2019-04-30 13:03:00* Test Item Value Reference Range Interpretation Comments Estimat Glomerular Filtration Rate (test code = 388477383) 58 >60 L Ranges were taken from the National Kidney Disease Education Program and the [facility] [employer] literature.Reference ranges:60 or greater: Uiximj71-27 ( for 3 consecutive months): Chronic kidney disease 15 or less: Kidney failureThe Hospitals of Providence East CampusGlucose Jchzm9110-46-40 13:03:00* Test Item Value Reference Range Interpretation Comments Glucose Level (test code = HNC8468) 233 74-118 H [facility] CampusCalcium Coszy1465-99-36 13:03:00* Test Item Value Reference Range Interpretation Comments Calcium Level (test code = 68795-4) 8.2 8.4-10.2 L [facility] CampusWhite Blood Oqaln8698-06-29 12:33:00* Test Item Value Reference Range Interpretation Comments White Blood Count (test code = 6690-2) 6.95 4.8-10.8 [facility] CampusRed Blood Ffjxq9618-86-12 12:33:00* Test Item Value Reference Range Interpretation Comments Red Blood Count (test code = 789-8) 3.28 4.3-5.7 L [facility] CampusHemoglobin2020-02-24 12:33:00* Test Item Value Reference Range Interpretation Comments Hemoglobin (test code = 49984-9) 9.0 14.0-18.0 L [facility] CampusHematocrit2020-02-24 12:33:00* Test Item Value Reference Range Interpretation Comments Hematocrit (test code = 4544-3) 28.3 38.2-49.6 L [facility] CampusMean Corpuscular Ayftxb1924-11-36 12:33:00* Test Item Value Reference Range Interpretation Comments Mean Corpuscular Volume (test code = 787-2) 86.3 81-99 [facility] CampusMean Corpuscular Xklshzjjje8403-89-51 12:33:00* Test Item Value Reference Range Interpretation Comments Mean Corpuscular Hemoglobin (test code = 785-6) 27.4 28-32 L [facility] CampusMean Corpuscular Hemoglobin Concent 2019-04-30 12:33:00* Test Item Value Reference Range Interpretation Comments Mean Corpuscular Hemoglobin Concent (test code = 786-4) 31.8 31-35 [facility] CampusRed Cell Distribution Bnxte6098-63-06 12:33:00* Test Item Value Reference Range Interpretation Comments Red Cell Distribution Width (test code = 21089-5) 14.5 11.7 -14.4 H [facility] CampusPlatelet Mqjht0394-80-03 12:33:00* Test Item Value Reference Range Interpretation Comments Platelet Count (test code = 777-3) 301 140-360 [facility] CampusNeutrophils (%) (Auto)2019-04-30 12:33:00 * Test Item Value Reference Range Interpretation Comments Neutrophils (%) (Auto) (test code = 71591-9) 76.8 38.7-80.0 [facility] CampusLymphocytes (%) (Auto)2019-04-30 12:33:00 * Test Item Value Reference Range Interpretation Comments Lymphocytes (%) (Auto) (test code = 736-9) 12.1 18.0-39.1 L [facility] CampusMonocytes (%) (Auto)2019-04-30 12:33:00* Test Item Value Reference Range Interpretation Comments Monocytes (%) (Auto) (test code = 5905-5) 6.8 4.4-11.3 [facility] CampusEosinophils (%) (Auto)2019-04-30 12:33:00 * Test Item Value Reference Range Interpretation Comments Eosinophils (%) (Auto) (test code = 713-8) 2.7 0.0-6.0 [facility] CampusBasophils (%) (Auto)2019-04-30 12:33:00* Test Item Value Reference Range Interpretation Comments Basophils (%) (Auto) (test code = 706-2) 0.6 0.0-1.0 [facility] CampusIM GRANULOCYTES %2019-04-30 12:33:00* Test Item Value Reference Range Interpretation Comments IM GRANULOCYTES % (test code = IM GRANULOCYTES %) 1.0 0.0- 1.0 [facility] CampusNeutrophils # (Auto)2019-04-30 12:33:00* Test Item Value Reference Range Interpretation Comments Neutrophils # (Auto) (test code = 751-8) 5.3 2.1-6.9 [facility] CampusLymphocytes # (Auto)2019-04-30 12:33:00* Test Item Value Reference Range Interpretation Comments Lymphocytes # (Auto) (test code = 24594-1) 0.8 1.0-3.2 L [facility] CampusMonocytes # (Auto)2019-04-30 12:33:00* Test Item Value Reference Range Interpretation Comments Monocytes # (Auto) (test code = 742-7) 0.5 0.2-0.8 [facility] CampusEosinophils # (Auto)2019-04-30 12:33:00* Test Item Value Reference Range Interpretation Comments Eosinophils # (Auto) (test code = 711-2) 0.2 0.0-0.4 [facility] CampusBasophils # (Auto)2019-04-30 12:33:00* Test Item Value Reference Range Interpretation Comments Basophils # (Auto) (test code = 704-7) 0.0 0.0-0.1 [facility] CampusAbsolute Immature Granulocyte (auto 2019-04-30 12:33:00* Test Item Value Reference Range Interpretation Comments Absolute Immature Granulocyte (auto (nitin t code = Absolute Immature Granulocyte (auto) 0.07 0-0.1 [facility] [id number] 09:17:00 [facility] [address] [address] Patient Name: DMITRY ARMSTRONG JR MR #: [id number] : 1960 Age/Sex: 58/M Req #: [id number] Adm Physician: ROCHELLE DE LA ROSA MD Ordered by: CATHLEEN DUNN MD Report #: [id number] Location: [facility] Room/Bed: 293 Procedure: [id number] CT/ CT TIBIA/FIBULA RIGHT WO Exam Date: 04/28/19 Exam Ti me: 4532 REPORT STATUS: Signed T ECHNIQUE: Computed tomography imaging of the right lower extremity was perform ed WITHOUT injected contrast. HISTORY: Evaluate for infection COMPARIS ON: None available. 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 Soft tissue ulceration involving the plantar aspects of the stump with ill-defined fluid and gas collection extending into the hin dfoot stump. Erosive change and periostitis within the stump. Additional subcutaneous edema distally. Atrophy of the calf musculature. Vascular calcifications. 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 Plantar foot ulceration with fluid and gas collection extending to and within the osseous stump compatible with polymicrobial abscess and osteomyelitis. Signed by: Dr. Courtney lewis M.D. on 04/30/2019 9:21 AM Dictated By: COURTNEY FERGUSON MD Electronic ally Signed By: COURTNEY FERGUSON MD on 04/30/19920 Transcribed By: JOHN on 04/30/19920 COPY TO: CATHLEEN DUNN MD Vancomycin Level Trough 2019-04-30 02:58:00* Test Item Value Reference Range Interpretation Comments Vancomycin Level Trough (test code = 4092-3) 17.4 5.0-10.0 HH Results repeated and called to DONITA ANAND RN at 0258 on 04/30/19 by Caitlyn lemus. Read back and verified.[facility] CampusBlood Qnuwfws9781-46-30 00:36:00* Test Item Value Reference Range Interpretation Comments Blood Culture (test code = 62547336) NO GROWTH AFTER 72 HOURS [facility] CampusWound Jgnxncg5917-13-80 07:53:00* Test Item Value Reference Range Interpretation Comments Wound Culture (test code = 6462-6) No Result Data Provided [facility] CampusFOOT RIGHT [id number] 18:36:00 [place] [address] Patient Name: DMITRY ARMSTRONG JR MR #: [id number] : 1960 Age/Sex: 58/M Req #: [id number] Adm Physician: ROCHELLE DE LA ROSA MD Ordered by: PIA COBB DPM Report #: [id number] Location: MED/SURG3 Room/Bed: [facility] Procedure: [id number] DX/ FOOT RIGHT COMPLETE Exam Date: 04/28/19 Exam Time: 1 800 REPORT STATUS: Signed FOOT R IGHT COMPLETE - Multiple views HISTORY: cellulitis [id number] Y COMPARISON: None available. FINDINGS: Status post ampu tation of the right foot with ulcerated wound seen overlying the amputation si te. There is associated of soft tissue swelling with inflammatory stranding sw elling and subcutaneous emphysema compatible with gas-forming cellulitis. Ther e is associated erosion of the deformed talus and calcaneus compatible with os teomyelitis. IMPRESSION: Osteomyelitis and cellulitis as described. Signed by: Yobany Escalona MD on 04/28/2019 6:37 PM Dictated By: DAVE ESCALONA MD 36 Transcribed By: JOHN on 04/28/191836 COPY TO: PIA COBB DPM Triglycerides Cqadu0671-39-64 08:31:00* Test Item Value Reference Range Interpretation Comments Triglycerides Level (test code = 2571-8) 86 0-149 [facility] CampusCholesterol Kuevy2509-52-43 08:31:00* Test Item Value Reference Range Interpretation Comments Cholesterol Level (test code = 2093-3) 111 0-199 Less than 200 mg/dL Low Nfmv070 - 239 mg/dL Borderline Qhvv873 m g/dl and greater High Risk [facility] CampusLDL Vsccpyigyif3190-06-98 08:31:00* Test Item Value Reference Range Interpretation Comments LDL Cholesterol (test code = 2089-1) 67 60-130 [facility] CampusHDL Oshapfvomxs4956-68-57 08:31:00* Test Item Value Reference Range Interpretation Comments HDL Cholesterol (test code = 2085-9) 27 40-60 L [facility] CampusCholesterol/HDL Tqylk5170-61-16 08:31:00 * Test Item Value Reference Range Interpretation Comments Cholesterol/HDL Ratio (test code = 9830-1) 4.1 3.9-4.7 [facility] CampusHemoglobin A1c Wsyrowm3967-28-92 08:28:00 * Test Item Value Reference Range Interpretation Comments Hemoglobin A1c Percent (test code = Hemoglobin A1c Percent) 10.7 4.0-7.0 H [facility] CampusTotal Yhtbldntd4237-65-97 07:49:00* Test Item Value Reference Range Interpretation Comments Total Bilirubin (test code = 1975-2) 0.3 0.2-1.2 [facility] CampusAspartate Amino Transf (AST/SGOT) 2019-04-28 07:49:00* Test Item Value Reference Range Interpretation Comments Aspartate Amino Transf (AST/SGOT) (test code = Aspartate Amino Transf (AST/SGOT)) 18 5-34 [facility] CampusAlanine Aminotransferase (ALT/SGPT) 2019-04-28 07:49:00* Test Item Value Reference Range Interpretation Comments Alanine Aminotransferase (ALT/SGPT) (test code = 1742-6) 8 0-55 [facility] CampusTotal Tylxwnt3388-44-61 07:49:00* Test Item Value Reference Range Interpretation Comments Total Protein (test code = 2885-2) 6.2 6.5-8.1 L [facility] CampusAlbumin2020-02-22 07:49:00* Test Item Value Reference Range Interpretation Comments Albumin (test code = 1751-7) 2.1 3.5-5.0 L [facility] CampusGlobulin2020-02-22 07:49:00* Test Item Value Reference Range Interpretation Comments Globulin (test code = 16541-4) 4.1 2.3-3.5 H [facility] CampusAlbumin/Globulin Cswfl2346-75-89 07:49:00 * Test Item Value Reference Range Interpretation Comments Albumin/Globulin Ratio (test code = 1759-0) 0.5 0.8-2.0 L [facility] CampusAlkaline Dpnitekjldv5577-06-44 07:49:00* Test Item Value Reference Range Interpretation Comments Alkaline Phosphatase (test code = 6768-6) 101 40-150 [facility] CampusUrine UGM2744-73-01 13:22:00* Test Item Value Reference Range Interpretation Comments Urine WBC (test code = 5821-4) 11-20 0-5 H [facility] CampusUrine UTV3760-26-26 13:22:00* Test Item Value Reference Range Interpretation Comments Urine RBC (test code = 75784-8) NONE 0-5 [facility] CampusUrine Shjorbcz8402-13-36 13:22:00* Test Item Value Reference Range Interpretation Comments Urine Bacteria (test code = 78916-3) NONE NONE [facility] CampusUrine Epithelial Ndkey3338-86-95 13:22:00 * Test Item Value Reference Range Interpretation Comments Urine Epithelial Cells (test code = 95513-8) FEW NONE [facility] Fdddw2892-77-17 13:03:00* Test Item Value Reference Range Interpretation Comments Urine Color (test code = 5778-6) YELLOW YELLOW [facility] Wwdcvre7082-17-34 13:03:00* Test Item Value Reference Range Interpretation Comments Urine Clarity (test code = 81226-9) CLEAR CLEAR [facility] Specific Lmlvhiz9504-86-07 13:03:00 * Test Item Value Reference Range Interpretation Comments Urine Specific Mcdonald (test code = 5811-5) 1.020 1.010-1.02 5 [facility] dG4085-36-88 13:03:00* Test Item Value Reference Range Interpretation Comments Urine pH (test code = 70540-6) 5 5-7 [facility] Leukocyte Ngajsmiu1679-75-67 13:03:00* Test Item Value Reference Range Interpretation Comments Urine Leukocyte Esterase (test code = 5799-2) NEGATIVE NEGATIVE [facility] Sexqaph1448-37-09 13:03:00* Test Item Value Reference Range Interpretation Comments Urine Nitrite (test code = 60126-7) NEGATIVE NEGATIVE [facility] Swhbarz9504-12-61 13:03:00* Test Item Value Reference Range Interpretation Comments Urine Protein (test code = 5804-0) NEGATIVE NEGATIVE [facility] Glucose (UA)2019-04-27 13:03:00* Test Item Value Reference Range Interpretation Comments Urine Glucose (UA) (test code = 2349-9) NEGATIVE NEGATIVE [facility] Ctplbyh4445-48-96 13:03:00* Test Item Value Reference Range Interpretation Comments Urine Ketones (test code = 14842-9) NEGATIVE NEGATIVE [facility] Fjeqkmpvlowr2656-31-22 13:03:00* Test Item Value Reference Range Interpretation Comments Urine Urobilinogen (test code = 89677-9) 0.2 0.2-1 [facility] Utiwlilys9701-16-85 13:03:00* Test Item Value Reference Range Interpretation Comments Urine Bilirubin (test code = 1978-6) NEGATIVE NEGATIVE [facility] Eqxxg8325-55-32 13:03:00* Test Item Value Reference Range Interpretation Comments Urine Blood (test code = 49522-2) NEGATIVE NEGATIVE [facility] CampusLactic Acid Tgbtu7395-58-94 04:09:00* Test Item Value Reference Range Interpretation Comments Lactic Acid Level (test code = Lactic Acid Level) 1.3 0.5- 2.0 [facility] CampusProthrombin Yqwu1944-05-51 00:52:00* Test Item Value Reference Range Interpretation Comments Prothrombin Time (test code = 5902-2) 14.4 11.9-14.5 [facility] CampusProthromb Time International Ratio 2019-04-27 00:52:00* Test Item Value Reference Range Interpretation Comments Prothromb Time International Ratio (test code = 6301-6) 1.05 Oral Anticoagulant Therapy INR Values:1. Low Intensity Therapy 1.5 - 2.02 . Moderate Intensity Therapy 2.0 - 3.03. High Intensity Therapy(1) 2.5 - 3. 54. High Intensity Therapy(2) 3.0 - 4.05. Panic Value INR > 5.0 [facility] CampusActivated Partial Thromboplast Time 2019-04-27 00:52:00* Test Item Value Reference Range Interpretation Comments Activated Partial Thromboplast Time (test code = 84593-5) 39.3 23.8-35.5 H [facility] CampusInfluenza Virus Types A,B Antigen 2019-04-27 00:30:00* Test Item Value Reference Range Interpretation Comments Influenza Virus Types A,B Antigen (test code = 45347-0) NEGATIVE NEGATIVE [facility] CampusCHEST SINGLE (PORTABLE)2019-04-27 00:16:00 [place] [address] Patient Name: DMITRY ARMSTRONG JR MR #: [id number] : 1960 Age/Sex: 58/M Req #: [id number] Adm Physician: Ordered by: JUSTA GARCIA MD Report #: [id number] Location: ER Room/Bed: Procedure: [id number] -0085 DX/CHEST SINGLE (PORTABLE) Exam Date: Exam Ti me: REPORT STATUS: Signed EXAMI NATION: CHEST SINGLE (PORTABLE) COMPARISON: Chest x-ray 02/05/2019 INDICATION: fever Y DISCUSSION: Frontal view of the chest obtai murali at 2353 hours. HEART AND MEDIASTINUM: Stable mild cardiomegaly and car diac bypass changes. LINES: Anterior cardiac lead is redemonstrated LUNGS: Stable low lung volumes without infiltrate or interstitial edema. Pul monary veins are prominent but stable. PLEURA: No pleural effusion or pneu mothorax. BONES AND SOFT TISSUES: Median sternotomy appears intact. No foc al osseous lesions. The soft tissues are normal. IMPRESSION: Stable cardiomegaly and pulmonary venous prominence. No acute cardiopulmonary proces s. Signed by: Dr. Mulugeta Ortiz MD on 04/27/2019 12:17 AM Dictat ed By: MULUGETA ORTIZ MD COPY TO: JUSTA BATES MD Bedside Wyjoqsb3080-91-19 16:15:00* Test Item Value Reference Range Interpretation Comments Bedside Glucose (test code = 73516-7) 285 70-120 H Meter ID: [id number] [facility] Budaodium Level 2019-02-09 09:43:00* Test Item Value Reference Range Interpretation Comments Sodium Level (test code = 2951-2) 134 136-145 L [facility] CampusPotassium Vepot0788-11-60 09:43:00* Test Item Value Reference Range Interpretation Comments Potassium Level (test code = 2823-3) 4.0 3.5-5.1 [facility] CampusChloride Yvrsj3729-62-27 09:43:00* Test Item Value Reference Range Interpretation Comments Chloride Level (test code = 2075-0) 104 98-107 [facility] CampusCarbon Dioxide Fbkye2317-70-47 09:43:00* Test Item Value Reference Range Interpretation Comments Carbon Dioxide Level (test code = 2028-9) 21 22-29 L [facility] CampusAnion Wob2262-69-82 09:43:00* Test Item Value Reference Range Interpretation Comments Anion Gap (test code = 32257-7) 13.0 8-16 [facility] CampusBlood Urea Zwvplpgo9578-00-08 09:43:00* Test Item Value Reference Range Interpretation Comments Blood Urea Nitrogen (test code = 3094-0) 11 7-26 [facility] CampusCreatinine2019-12-06 09:43:00* Test Item Value Reference Range Interpretation Comments Creatinine (test code = 2160-0) 1.03 0.72-1.25 [facility] CampusBUN/Creatinine Hasjg6169-03-36 09:43:00* Test Item Value Reference Range Interpretation Comments BUN/Creatinine Ratio (test code = 3097-3) 11 6-25 [facility] CampusEstimat Glomerular Filtration Rate 2019-02-09 09:43:00* Test Item Value Reference Range Interpretation Comments Estimat Glomerular Filtration Rate (test code = 097611907) > 60 >60 Ranges were taken from the National Kidney Disease Education Program and the [facility] [employer] literature.Reference ranges:60 or greater: Myoyvj43-40 ( for 3 consecutive months): Chronic kidney disease 15 or less: Kidney failureThe Hospitals of Providence East CampusGlucose Yfnqs3008-36-87 09:43:00* Test Item Value Reference Range Interpretation Comments Glucose Level (test code = HAW1582) 215 74-118 H [facility] CampusCalcium Wyypm0487-89-05 09:43:00* Test Item Value Reference Range Interpretation Comments Calcium Level (test code = 72495-8) 8.6 8.4-10.2 [facility] CampusBlood Izvzlai7184-24-66 18:58:00* Test Item Value Reference Range Interpretation Comments Blood Culture (test code = 89384033) NO GROWTH AFTER 72 HOURS [facility] CampusB-Type Natriuretic Tcebxaj0803-88-45 07:24:00* Test Item Value Reference Range Interpretation Comments B-Type Natriuretic Peptide (test code = 51541-4) 1059.8 0-100 H [facility] CampusB-Type Natriuretic Uvlwkyp8879-38-10 07:24:00* Test Item Value Reference Range Interpretation Comments B-Type Natriuretic Peptide (test code = 74910-0) 1059.8 0-100 H [facility] CampusWhite Blood Cwhkt2946-67-31 07:13:00* Test Item Value Reference Range Interpretation Comments White Blood Count (test code = 6690-2) 3.91 4.8-10.8 L [facility] CampusRed Blood Cxsxo9938-39-91 07:13:00* Test Item Value Reference Range Interpretation Comments Red Blood Count (test code = 789-8) 3.28 4.3-5.7 L [facility] CampusHemoglobin2019-12-04 07:13:00* Test Item Value Reference Range Interpretation Comments Hemoglobin (test code = 93483-9) 8.7 14.0-18.0 L [facility] CampusHematocrit2019-12-04 07:13:00* Test Item Value Reference Range Interpretation Comments Hematocrit (test code = 4544-3) 28.1 38.2-49.6 L [facility] CampusMean Corpuscular Uxgyll7938-46-61 07:13:00* Test Item Value Reference Range Interpretation Comments Mean Corpuscular Volume (test code = 787-2) 85.7 81-99 [facility] CampusMean Corpuscular Tiyjbkkwxl9444-02-30 07:13:00* Test Item Value Reference Range Interpretation Comments Mean Corpuscular Hemoglobin (test code = 785-6) 26.5 28-32 L [facility] CampusMean Corpuscular Hemoglobin Concent 2019-02-07 07:13:00* Test Item Value Reference Range Interpretation Comments Mean Corpuscular Hemoglobin Concent (test code = 786-4) 31.0 31-35 [facility] CampusRed Cell Distribution Pjelz5044-24-95 07:13:00* Test Item Value Reference Range Interpretation Comments Red Cell Distribution Width (test code = 48080-0) 14.5 11.7 -14.4 H [facility] CampusPlatelet Eszvt9240-34-25 07:13:00* Test Item Value Reference Range Interpretation Comments Platelet Count (test code = 777-3) 138 140-360 L [facility] CampusNeutrophils (%) (Auto)2019-02-07 07:13:00 * Test Item Value Reference Range Interpretation Comments Neutrophils (%) (Auto) (test code = 77540-6) 63.5 38.7-80.0 [facility] CampusLymphocytes (%) (Auto)2019-02-07 07:13:00 * Test Item Value Reference Range Interpretation Comments Lymphocytes (%) (Auto) (test code = 736-9) 18.9 18.0-39.1 [facility] CampusMonocytes (%) (Auto)2019-02-07 07:13:00* Test Item Value Reference Range Interpretation Comments Monocytes (%) (Auto) (test code = 5905-5) 13.3 4.4-11.3 H [facility] CampusEosinophils (%) (Auto)2019-02-07 07:13:00 * Test Item Value Reference Range Interpretation Comments Eosinophils (%) (Auto) (test code = 713-8) 3.3 0.0-6.0 [facility] CampusBasophils (%) (Auto)2019-02-07 07:13:00* Test Item Value Reference Range Interpretation Comments Basophils (%) (Auto) (test code = 706-2) 0.5 0.0-1.0 [facility] CampusIM GRANULOCYTES %2019-02-07 07:13:00* Test Item Value Reference Range Interpretation Comments IM GRANULOCYTES % (test code = IM GRANULOCYTES %) 0.5 0.0- 1.0 [facility] CampusNeutrophils # (Auto)2019-02-07 07:13:00* Test Item Value Reference Range Interpretation Comments Neutrophils # (Auto) (test code = 751-8) 2.5 2.1-6.9 [facility] CampusLymphocytes # (Auto)2019-02-07 07:13:00* Test Item Value Reference Range Interpretation Comments Lymphocytes # (Auto) (test code = 05714-7) 0.7 1.0-3.2 L [facility] CampusMonocytes # (Auto)2019-02-07 07:13:00* Test Item Value Reference Range Interpretation Comments Monocytes # (Auto) (test code = 742-7) 0.5 0.2-0.8 [facility] CampusEosinophils # (Auto)2019-02-07 07:13:00* Test Item Value Reference Range Interpretation Comments Eosinophils # (Auto) (test code = 711-2) 0.1 0.0-0.4 [facility] CampusBasophils # (Auto)2019-02-07 07:13:00* Test Item Value Reference Range Interpretation Comments Basophils # (Auto) (test code = 704-7) 0.0 0.0-0.1 [facility] CampusAbsolute Immature Granulocyte (auto 2019-02-07 07:13:00* Test Item Value Reference Range Interpretation Comments Absolute Immature Granulocyte (auto (nitin t code = Absolute Immature Granulocyte (auto) 0.02 0-0.1 [facility] CampusProthrombin Rnxh9020-94-13 06:58:00* Test Item Value Reference Range Interpretation Comments Prothrombin Time (test code = 5902-2) 14.3 11.9-14.5 [facility] CampusProthromb Time International Ratio 2019-02-07 06:58:00* Test Item Value Reference Range Interpretation Comments Prothromb Time International Ratio (test code = 6301-6) 1.06 Oral Anticoagulant Therapy INR Values:1. Low Intensity Therapy 1.5 - 2.02 . Moderate Intensity Therapy 2.0 - 3.03. High Intensity Therapy(1) 2.5 - 3. 54. High Intensity Therapy(2) 3.0 - 4.05. Panic Value INR > 5.0 [facility] CampusActivated Partial Thromboplast Time 2019-02-07 06:58:00* Test Item Value Reference Range Interpretation Comments Activated Partial Thromboplast Time (test code = 51702-3) 37.0 23.8-35.5 H [facility] Zwwsjwibf1849-32-97 06:14:00* Test Item Value Reference Range Interpretation Comments Total Bilirubin (test code = 1975-2) 0.4 0.2-1.2 [facility] CampusAspartate Amino Transf (AST/SGOT) 2019-02-07 06:14:00* Test Item Value Reference Range Interpretation Comments Aspartate Amino Transf (AST/SGOT) (test code = Aspartate Amino Transf (AST/SGOT)) 16 5-34 [facility] CampusAlanine Aminotransferase (ALT/SGPT) 2019-02-07 06:14:00* Test Item Value Reference Range Interpretation Comments Alanine Aminotransferase (ALT/SGPT) (test code = 1742-6) 13 0-55 [facility] CampusTotal Pmypgmz8882-99-25 06:14:00* Test Item Value Reference Range Interpretation Comments Total Protein (test code = 2885-2) 6.3 6.5-8.1 L [facility] CampusAlbumin2019-12-04 06:14:00* Test Item Value Reference Range Interpretation Comments Albumin (test code = 1751-7) 2.4 3.5-5.0 L [facility] CampusGlobulin2019-12-04 06:14:00* Test Item Value Reference Range Interpretation Comments Globulin (test code = 72149-5) 3.9 2.3-3.5 H [facility] CampusAlbumin/Globulin Xgiui4503-97-33 06:14:00 * Test Item Value Reference Range Interpretation Comments Albumin/Globulin Ratio (test code = 1759-0) 0.6 0.8-2.0 L [facility] CampusAlkaline Gvgoeblpxpd1863-00-50 06:14:00* Test Item Value Reference Range Interpretation Comments Alkaline Phosphatase (test code = 6768-6) 88 40-150 [facility] CampusCreatine Kinase PK7000-74-00 20:03:00* Test Item Value Reference Range Interpretation Comments Creatine Kinase MB (test code = 79778-3) 2.10 0-5.0 [facility] CampusTroponin K6780-82-22 20:03:00* Test Item Value Reference Range Interpretation Comments Troponin I (test code = VCF1075) 1.493 0-0.300 H Elevated result called to TIBURCIO ARELLANO at 2001 on 02/06/19 by BELLA REGALADO .[facility] CampusCreatine Kinase XH0676-43-80 20:03:00* Test Item Value Reference Range Interpretation Comments Creatine Kinase MB (test code = 01649-5) 2.10 0-5.0 [facility] CampusTroponin T6224-54-16 20:03:00* Test Item Value Reference Range Interpretation Comments Troponin I (test code = QHP0168) 1.493 0-0.300 H Elevated result called to TIBURCIO ARELLANO at 2001 on 02/06/19 by BELLA REGALADO .[facility] CampusCreatine Xsmqgh3556-31-39 19:51:00* Test Item Value Reference Range Interpretation Comments Creatine Kinase (test code = 2157-6) 51 30-200 [facility] CampusCreatine Njpdwp5303-33-52 19:51:00* Test Item Value Reference Range Interpretation Comments Creatine Kinase (test code = 2157-6) 51 30-200 [facility] CampusUrine JWD0097-39-79 08:08:00* Test Item Value Reference Range Interpretation Comments Urine WBC (test code = 5821-4) 0-5 0-5 [facility] CampusUrine KJG5043-96-03 08:08:00* Test Item Value Reference Range Interpretation Comments Urine RBC (test code = 41667-6) 0-5 0-5 [facility] CampusUrine Lwymhxrm0000-49-22 08:08:00* Test Item Value Reference Range Interpretation Comments Urine Bacteria (test code = 33997-7) RARE NONE [facility] CampusUrine Epithelial Vodlm0058-37-62 08:08:00 * Test Item Value Reference Range Interpretation Comments Urine Epithelial Cells (test code = 95370-9) FEW NONE [facility] CampusUrine Msiyc6586-49-65 08:01:00* Test Item Value Reference Range Interpretation Comments Urine Color (test code = 5778-6) YELLOW YELLOW [facility] CampusUrine Qtzfwuz2908-96-21 08:01:00* Test Item Value Reference Range Interpretation Comments Urine Clarity (test code = 87739-5) CLEAR CLEAR [facility] Specific Pwnlawf3516-02-50 08:01:00 * Test Item Value Reference Range Interpretation Comments Urine Specific Mcdonald (test code = 5811-5) 1.025 1.010-1.02 5 [facility] CampusUrine fJ0262-34-74 08:01:00* Test Item Value Reference Range Interpretation Comments Urine pH (test code = 93024-6) 5.5 5-7 [facility] CampusUrine Leukocyte Ckfrkdrl4441-23-41 08:01:00* Test Item Value Reference Range Interpretation Comments Urine Leukocyte Esterase (test code = 02638-5) NEGATIVE NEGATIV E [facility] CampusUrine Gjwmnwz4345-73-11 08:01:00* Test Item Value Reference Range Interpretation Comments Urine Nitrite (test code = 77339-2) NEGATIVE NEGATIVE [facility] CampusUrine Svbpvkh2413-33-08 08:01:00* Test Item Value Reference Range Interpretation Comments Urine Protein (test code = 34965-3) NEGATIVE NEGATIVE [facility] CampusUrine Glucose (UA)2019-02-06 08:01:00* Test Item Value Reference Range Interpretation Comments Urine Glucose (UA) (test code = 18389-2) 3+ NEGATIVE [facility] CampusUrine Pfspeoa7528-02-20 08:01:00* Test Item Value Reference Range Interpretation Comments Urine Ketones (test code = 81021-3) NEGATIVE NEGATIVE [facility] CampusUrine Wzugoiskzlvj5622-88-79 08:01:00* Test Item Value Reference Range Interpretation Comments Urine Urobilinogen (test code = 86878-7) 0.2 0.2-1 [facility] CampusUrine Zveyxnadh1372-40-11 08:01:00* Test Item Value Reference Range Interpretation Comments Urine Bilirubin (test code = 1977-8) NEGATIVE NEGATIVE [facility] CampusUrine Iebvq9036-25-68 08:01:00* Test Item Value Reference Range Interpretation Comments Urine Blood (test code = 15395-0) NEGATIVE NEGATIVE [facility] CampusThyroid Stimulating Hormone (TSH) 2019-02-06 04:09:00* Test Item Value Reference Range Interpretation Comments Thyroid Stimulating Hormone (TSH) (test code = 87042-4) 3.646 0.350-4.940 [facility] CampusThyroid Stimulating Hormone (TSH) 2019-02-06 04:09:00* Test Item Value Reference Range Interpretation Comments Thyroid Stimulating Hormone (TSH) (test code = 96067-4) 3.646 0.350-4.940 [facility] CampusPhosphorus Uvrwz2104-12-99 03:32:00* Test Item Value Reference Range Interpretation Comments Phosphorus Level (test code = GKE6560) 3.3 2.3-4.7 [facility] CampusMagnesium Nnqdd3766-87-86 03:32:00* Test Item Value Reference Range Interpretation Comments Magnesium Level (test code = 20280-5) 1.8 1.3-2.1 [facility] CampusPhosphorus Ekefd9407-62-58 03:32:00* Test Item Value Reference Range Interpretation Comments Phosphorus Level (test code = BLF9755) 3.3 2.3-4.7 [facility] Lsxtq7460-27-70 03:32:00* Test Item Value Reference Range Interpretation Comments Magnesium Level (test code = 39117-9) 1.8 1.3-2.1 [facility] UH5619-03-54 20:35:00 [facility] [address] [place] [address] Patient Name: DMITRY ARMSTRONG JR MR #: [id number] : 1960 Age/Sex: 58/M Req #: [id number] Adm Physician: ESTRELLA KIM MD Ordered by: JACKIE TUCKER, LYNETTE TUCKER Report #: [id number] Location: [facility] Room/Bed: [place] [address] Procedure: 28 CT/CT ABDOMEN/PELVIS WO Exam Date: 02/05/19 Exam Time: 1899 REPORT STATUS: Signed EXAM: CT Abdomen and Pelvis WITHOUT contrast INDICATION: Lower back pain STONE PROTOCOL [id number] 1900 Y COMPARISON: None. TECHNIQUE: Abd omen and pelvis were scanned utilizing a multidetector helical scanner from th e lung base to the pubic symphysis without administration of IV contrast. Abse nce of intravenous contrast decreases sensitivity for detection of focal lesio ns and vascular pathology. Coronal and sagittal reformations were obtained. Re nal stone protocol was performed. Dose modulation, iterative reconstructio n, and/or weight based adjustment of the mA/kV was utilized to reduce the radi ation dose to as low as reasonably achievable. IV CONTRAST: None. ORAL CONTRAST: None RADIATION DOSE: Total DLP: 931.90 mGy*cm Estimated effective dose: (DLP x 0.015 x size fact or) mSv COMPLICATIONS: None FINDINGS: LINES and TUBES: T here is a generator device implanted in the subcutaneous tissues of the lower left chest with an electrode extending anterior to the sternum. There is parti al visualization of wire sternotomy sutures. LOWER THORAX: Lung bases are clear. Heart size normal with coronary artery calcifications seen. HEPATO BILIARY: No focal hepatic lesions. No biliary ductal dilation. GALLBL ADDER: The gallbladder is distended measuring approximately 12.1 cm in length. A small opaque gallstone is seen as well as layering radiopaque sludge. There is no gallbladder wall thickening or pericholecystic inflammatory change seen. SPLEEN: No splenomegaly. PANCREAS: No focal masses or ductal d ilatation. ADRENALS: No adrenal nodules KIDNEYS/URETERS: No hyd ronephrosis. No cystic or solid contour deforming mass lesions. There are haider cifications related to the central portions of both kidneys, mostly vascular. Punctate nonobstructing intrarenal calculi are likely also present. There is m ild fat stranding surrounding both kidneys and proximal portions of the ureter s. GI TRACT: No abnormal distention, wall thickening, or evidence of bowel obstruction. Appendix is normal. PELVIC ORGANS/BLADDER: There is mi ld wall thickening of the urinary bladder. No discrete abnormal mass or fluid collection in the pelvis. LYMPH NODES: No dominant lymph node mass is seen in the abdomen, retroperitoneum or pelvis. VESSELS: There is extensive at herosclerotic calcified plaque involving the abdominal aorta and aortic branch es. No dilatation of the abdominal aorta. PERITONEUM / RETROPERITONEUM: No pneumoperitoneum or ascites. BONES: No acute or suspicious bony lesions. SOFT TISSUES: Superficial surrounding soft tissue shows a fat-containing mi dline ventral hernia with a 4.9 cm wall defect in the upper abdomen. IMPRESSION: 1. Cholelithiasis with gallbladder hydrops and mildly ra diopaque layering sludge in the gallbladder. No wall thickening or specific ev idence for acute cholecystitis. 2. Punctate nonobstructing intrarenal ca lculi. No hydronephrosis. There is mild fat stranding surrounding both kidneys and proximal ureters, with wall thickening of the bladder. Urinary tract infe ction is a consideration. 3. There is marked calcific atherosclerotic plaq ue of the abdominal aorta and all branch vessels in the abdomen. No aortic ane urysm. Staff: Mario Signed by: Dr. Gisella Martin M.D. on 02/05/2019 8:46 PM Dictated By: GISELLA MARTIN MD 45 Transcribed By: JOHN on 02/05/192045 COPY TO: LYNETTE MEJIA CHEST SINGLE (PORTABLE)2019-02-05 20:34:00 [place] [address] Patient Name: DMITRY ARMSTRONG JR MR #: [id number] : 1960 Age/Sex: 58/M Req #: [id number] Adm Physician: ESTRELLA KIM MD Ordered by: LYNETTE MEJIA MD, MD Report #: [id number] Location: [facility] Room/Bed: [place] [address] Procedure: 1202-00 56 DX/CHEST SINGLE (PORTABLE) Exam Date: 02/05/19 Ex am Time: 1900 REPORT STATUS: Signed EXAM: CHEST SINGLE (PORTABLE) DATE: 02/05/2019 6:01 PM INDICATIO N: Lower back pain ERMD ORDER [id number] 1900 Y COMPARISON: Chest x-ray, 08/22/2018 FINDINGS: Lines and tubes: Apparent cardiac pepper d is again seen projecting over the superior left heart. Position is stable. Cardiac silhouette is at upper normal size. There is mild central pulmo nary vascular prominence. No focal consolidation, pleural effusion or pneumoth orax. Upper abdomen unremarkable. Wire sternotomy sutures are again noted. IMPRESSION: Borderline heart size with central pulmonary vascular promine nce. No consolidation or pleural effusion. Signed by: Dr. Gisella Martin M.D. on 02/05/2019 8:35 PM Dictated By: GISELLA MARTIN MD Electronically S igned By: GISELLA MARTIN MD on 02/05/192034 Transcribed By: JOHN on 02/05/192034 COPY TO: LYNETTE MEJIA Influenza Virus Types A,B Antigen 2019-02-05 19:56:00* Test Item Value Reference Range Interpretation Comments Influenza Virus Types A,B Antigen (test code = 73185-0) NEGATIVE NEGATIVE [facility] [id number] 19:44:00* Test Item Value Reference Range Interpretation Comments Erythrocyte Sedimentation Rate (test code = 4537-7) 79 0- 13 H [facility]iment[facility] [id number] 19:44:00* Test Item Value Reference Range Interpretation Comments Erythrocyte Sedimentation Rate (test code = 4537-7) 79 0- 13 H [facility]2019-12-02 19:36:00* Test Item Value Reference Range Interpretation Comments Lipase (test code = 3040-3) [facility] 19:36:00* Test Item Value Reference Range Interpretation Comments Lipase (test code = 3040-3) [facility] CampusPROTHROMBIN [id number] 05:05:00* Test Item Value Reference Range Interpretation Comments PROTHROMBIN TIME PATIENT (test code = PTP) 11.6 seconds 9.0-14.0 N INTERNATIONAL NORMAL RATIO (test code = INR) 1.0 0.8-1.2 N The therapeutic range for oral anticoagulant therapy formost indications is an international normalized ratio (INR)of between 2.0 and 3.0. The recommended therapeutic INRrange for various clinical situations is listed below: Clinical Situation INR range Pulmonary e mbolism treatment (2.0-3.0)Venous thrombosis treatmentVenous thrombosis prophylaxis (high risk surgery)Prevention of systemic embolism from: Acute myocardial infarction Valvular heart disease Atrial fibrillation Mechanical prosthetic heart valves (2.5-3.5) IS PATIENT ON ANTICOAGULANTS? NTHROMBOPLASTIN TIME [id number] 05:05:00* Test Item Value Reference Range Interpretation Comments THROMBOPLASTIN TIME PARTIAL (test code = PTT) 29.9 seconds 25.0-36. 5 N IS PATIENT ON ANTICOAGULANTS? NB-TYPE NATRIURETIC [id number] 04:13:00* Test Item Value Reference Range Interpretation Comments B-TYPE NATRIURETIC PEPTIDE (test code = BNP) 165 pgram/mL 0-100 H BASIC METABOLIC [id number] 04:12:00* Test Item Value Reference Range Interpretation Comments SODIUM (test code = NA) 138 mmol/L 136-145 N POTASSIUM (test code = K) 3.7 mmol/L 3.5-5.1 N CHLORIDE (test code = CL) 104.0 mmol/L 98-107 N CARBON DIOXIDE (test code = CO2) 26.0 mmol/L 21-32 N ANION GAP (test code = GAP) 11.7 10-20 N GLUCOSE (test code = GLU) 114 mg/dL 74-106 H BLOOD UREA NITROGEN (test code = BUN) 30 mg/dL 7-18 H GLOMERULAR FILTRATION RATE (test code = GFR) 48 mL/min >=60 Estimated GFR by using Modified MDRD formula.Chronic kidney disease is defined as either kidney damageor GFR <60 mL/min/1.73 m2 for >3 months. CREATININE (test code = CREAT) 1.50 mg/dL 0.7-1.3 H BUN/CREATININE RATIO (test code = BUN/CREA) 20.4 10-20 H CALCIUM (test code = CA) 8.7 mg/dL 8.5-10.1 N HEPATIC FUNCTION [id number] 04:12:00* Test Item Value Reference Range Interpretation Comments TOTAL PROTEIN (test code = PROT) 7.0 gram/dL 6.4-8.2 N ALBUMIN (test code = ALB) 3.1 g/dL 3.4-5.0 L GLOBULIN (test code = GLOB) 3.9 gram/dL 2.7-4.2 N ALBUMIN/GLOBULIN RATIO (test code = A/G) 0.8 0.75-1.50 N BILIRUBIN TOTAL (test code = BILT) 0.30 mg/dL 0.0-1.0 N BILIRUBIN DIRECT (test code = BILD) 0.08 mg/dL 0.0-0.20 N SGOT/AST (test code = AST) 15 IUnit/L 15-37 N SGPT/ALT (test code = ALT) 16 IUnit/L 12-78 N ALKALINE PHOSPHATASE TOTAL (test code = ALKP) 134 IUnit/L 45-117 H Note change in reference range due to change in reagent. CREATINE KINASE (CK)2018-11-20 04:12:00* Test Item Value Reference Range Interpretation Comments CREATINE KINASE (CK) (test code = CK) 74 IUnit/L 26-208 N [id number] 04:12:00* Test Item Value Reference Range Interpretation Comments MAGNESIUM (test code = MAG) 1.5 mg/dL 1.8-2.4 L THYROID STIMULATING [id number] 04:12:00* Test Item Value Reference Range Interpretation Comments THYROID STIMULATING HORMONE (test code = TSH) 4.650 uIU/mL 0.36-3.7 4 H TSH REFERENCE RANGES: EUTHYROID: 0.35 - 4.3 mIU/mL HYPO : > 5.5 mIU/mL HYPER : < 0.35 mIU/mL [id number] 04:12:00* Test Item Value Reference Range Interpretation Comments TROPONIN-I (test code = TROPI) <0.015 ng/mL 0-0.045 N [id number] 04:12:00* Test Item Value Reference Range Interpretation Comments ACETAMINOPHEN (test code = ACET) < 10 mcg/mL 10-30 L A RANGE OF 10-30 mcg/mL IS A THERAPEUTIC RANGE. TOXIC CONCENTRATIONS: >150 mcg/mL AT 4 HOURS AFTER INGESTION >= 50 mcg/mL AT 12 HOURS AFTER INGESTION [id number] 04:12:00* Test Item Value Reference Range Interpretation Comments SALICYLATE (test code = MERLENE) < 1.7 mg/dL 2.8-20.0 L [id number] 04:06:00* Test Item Value Reference Range Interpretation Comments AMMONIA (test code = AMM) 26 umol/L 11-32 N - XR CHEST 1 [id number] 04:01:00 FAX: Dawood Jason MD [place]: B St: DIS FAX: Estrella Kim [facility] [phone] Name: DMITRY ARMSTRONG [facility] : 1960 Age/S: 58/M [address] Unit #: [id number] Loc: [place] [address] Phys: Dawood Jason MD Acct: [id number] Dis Date: [id number] Status: DIS IN PHONE #: [phone] Exam Date: 11/20/2018354 FAX #: [phone] Reason: Altered Mental Status EXAMS: CPT CODE: [id number] XR CHEST 1 V 90398 HISTORY: Altered mental status Location: C3 COMPARISON:09/11/2018 FINDINGS: 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 There is cardiomegaly. Mild vascular congestion is noted. No pneumothorax. No other changes. IMPRESSION: 1. Cardiomegaly with mild vascular prominence. at 0401 Reported and signed by: Dominick Sainz MD CC: Dawood Jason MD; Estrella Kim Technologist: Hilaria Robin Trnscrd Date/Time/By: 11/20/2018 (0401) : By: [email or web address] Orig Print D/T: S: 11/20/2018 (0812) PAGE 1 Signed Report - CT HEAD/BRAIN W/O [id number] 04:00:00 Name: DMITRY ARMSTRONG [facility] : 1960 Age/S: 58 / M [address] Unit #: [id number] Loc: [place] [address] Phys: Dawood Jason MD Acct: [id number] Dis Date: Status: REG ER PHONE #: [phone] Exam Date: 11/20/2018352 FAX #: [phone] Reason: Altered Mental Status EXAMS: CPT CODE: [id number] CT HEAD/BRAIN W/O CONT 27038 EXAM: - CT HEAD/BRAIN W/O CONT Location code:C3 HISTORY: 58 years -old Male with Altered Mental Status TECHNIQUE: Axial CT images from the skull base to the vertex without intravenous contrast. Coronal and sagittal reformatted images were created from the data set. One or more of the following dose reduction techniques were used: Automated exposure control, adjustment of the mA and/or kV according to patient size, and/or utilization of iterative reconstruction technique. COMPARISON: None FINDINGS: Intracranial: No abnormal brain parenchymal density. No evidence of acute infarction, intracranial hemorrhage, mass or mass effect, or abnormal extra-axial fluid collection. The ventricular system and sulci are age appropriate. The density in the larger dural sinuses is grossly normal. Vascular calcifications are present. Bones: There is no evidence of acute displaced calvarial fracture. Sinuses: The visualized portions of the paranasal sinuses demonstrate no significant opacification.The mastoid air cells are clear. Orbits/Soft Tissues: The visualized orbits show no significant abnormalities. The visualized soft tissues are unremarkable. IMPRESSION: 1. No intracranial hemorrhage. No acute intracranial abnormality. PAGE 1 Signed Report (CONTINUED) Name: DMITRY ARMSTRONG [facility] : 1960 Age/S: 58 / M [address] [facility] Unit #: [id number] Loc: [place] [address] Phys: Dawood Jason MD Acct: [id number] Dis Date: Status: REG ER PHONE #: [phone] Exam Date: 11/20/2018 0353 FAX #: [phone] Reason: Altered M ental Status EXAMS: CPT CODE: [id number] CT HEAD/BRAIN W/O CONT 48638 <Continued> at 0400 Reported and signed by: Dominick Sainz MD CC: Dawood Jason MD; Estrella Kim Technologist:RT Demetrio(R)(CT) CTDI: DLP: Trnscb Date/Time: 11/20/2018 (0400) [email or web address] Orig Print D/T: S: 11/20/2018 (0403) PAGE 2 Signed Report BASIC METABOLIC [id number] 03:58:00* Test Item Value Reference Range Interpretation Comments SODIUM (test code = NA) 138 mmol/L 136-145 N POTASSIUM (test code = K) 3.7 mmol/L 3.5-5.1 N CHLORIDE (test code = CL) 104.0 mmol/L 98-107 N CARBON DIOXIDE (test code = CO2) mmol/L 21-32 ANION GAP (test code = GAP) 10-20 GLUCOSE (test code = GLU) mg/dL 74-106 BLOOD UREA NITROGEN (test code = BUN) mg/dL 7-18 GLOMERULAR FILTRATION RATE (test code = GFR) mL/min >=60 CREATININE (test code = CREAT) mg/dL 0.7-1.3 BUN/CREATININE RATIO (test code = BUN/CREA) 10-20 CALCIUM (test code = CA) mg/dL 8.5-10.1 HEPATIC FUNCTION [id number] 03:58:00* Test Item Value Reference Range Interpretation Comments TOTAL PROTEIN (test code = PROT) gram/dL 6.4-8.2 ALBUMIN (test code = ALB) g/dL 3.4-5.0 GLOBULIN (test code = GLOB) gram/dL 2.7-4.2 ALBUMIN/GLOBULIN RATIO (test code = A/G) 0.75-1.50 BILIRUBIN TOTAL (test code = BILT) mg/dL 0.0-1.0 BILIRUBIN DIRECT (test code = BILD) mg/dL 0.0-0.20 SGOT/AST (test code = AST) IUnit/L 15-37 SGPT/ALT (test code = ALT) IUnit/L 12-78 ALKALINE PHOSPHATASE TOTAL (test code = ALKP) IUnit/L 45-117 CREATINE KINASE (CK)2018-11-20 03:58:00* Test Item Value Reference Range Interpretation Comments CREATINE KINASE (CK) (test code = CK) IUnit/L 26-208 [id number] 03:58:00* Test Item Value Reference Range Interpretation Comments MAGNESIUM (test code = MAG) mg/dL 1.8-2.4 THYROID STIMULATING [id number] 03:58:00* Test Item Value Reference Range Interpretation Comments THYROID STIMULATING HORMONE (test code = TSH) uIU/mL 0.36-3.7 4 [id number] 03:58:00* Test Item Value Reference Range Interpretation Comments TROPONIN-I (test code = TROPI) ng/mL 0-0.045 [id number] 03:58:00* Test Item Value Reference Range Interpretation Comments ACETAMINOPHEN (test code = ACET) mcg/mL 10-30 [id number] 03:58:00* Test Item Value Reference Range Interpretation Comments SALICYLATE (test code = MERLENE) mg/dL 2.8-20.0 CBC W/AUTO [id number] 03:52:00* Test Item Value Reference Range Interpretation Comments WHITE BLOOD CELL (test code = WBC) 7.3 K/mm3 4.5-12.5 N RED BLOOD CELL (test code = RBC) 3.97 mill/mm3 4.0-5.8 L HEMOGLOBIN (test code = HGB) 11.0 gram/dL 13.0-17.5 L HEMATOCRIT (test code = HCT) 33.9 % 42.0-52.0 L MEAN CELL VOLUME (test code = MCV) 85.4 fL 80-98 N MEAN CELL HGB (test code = MCH) 27.7 picogram 27.0-33.0 N MEAN CELL HGB CONCETRATION (test code = MCHC) 32.4 gram/dL 33.0-36. 0 L RED CELL DISTRIBUTION WIDTH (test code = RDW) 14.6 % 11.6-16. 2 N RED CELL DISTRIBUTION WIDTH SD (test code = RDW-SD) 45.6 fL 37 .0-51.0 N PLATELET COUNT (test code = PLT) 194 K/mm3 150-450 N MEAN PLATELET VOLUME (test code = MPV) 10.7 fL 6.7-11.0 N NEUTROPHIL % (test code = NT%) 72.6 % 39.0-69.0 H IMMATURE GRANULOCYTE % (test code = IG%) 0.5 % 0.0-5.0 N LYMPHOCYTE % (test code = LY%) 15.6 % 25.0-55.0 L MONOCYTE % (test code = MO%) 8.2 % 0.0-10.0 N EOSINOPHIL % (test code = EO%) 2.7 % 0.0-5.0 N BASOPHIL % (test code = BA%) 0.4 % 0.0-1.0 N NUCLEATED RBC % (test code = NRBC%) 0.0 % 0-0 N NEUTROPHIL # (test code = NT#) 5.29 K/mm3 1.8-7.7 N IMMATURE GRANULOCYTE # (test code = IG#) 0.04 x10 3/uL 0-0.03 H LYMPHOCYTE # (test code = LY#) 1.14 K/mm3 1.0-5.0 N MONOCYTE # (test code = MO#) 0.60 K/mm3 0-0.8 N EOSINOPHIL # (test code = EO#) 0.20 K/mm3 0.0-0.5 N BASOPHIL # (test code = BA#) 0.03 K/mm3 0.0-0.2 N NUCLEATED RBC # (test code = NRBC#) 0.00 K/mm3 0.0-0.1 N MANUAL DIFF REQUIRED (test code = MDIFF) NO LIPOPROTEIN [id number] 04:15:00* Test Item Value Reference Range Interpretation Comments LIPOPROTEIN LDL (test code = LDL) 116 mg/dL 0-100 H <100 [id number] NEAR OPTIMAL/ABOVE [id number] HIGH>LT=707 VERY HIGH*Guidelines provided by the National Cholesterol EducationProgram Adult Treatment Panel III BASIC METABOLIC [id number] 03:58:00* Test Item Value Reference Range Interpretation Comments SODIUM (test code = NA) 136 mEq/L 134-147 N POTASSIUM (test code = K) 4.0 mEq/L 3.4-5.0 N CHLORIDE (test code = CL) 103 mEq/L 100-108 N CARBON DIOXIDE (test code = CO2) 28 mEq/L 21-33 N ANION GAP (test code = GAP) 9 0-20 N GLUCOSE (test code = GLU) 221 mg/dL 70-110 H BLOOD UREA NITROGEN (test code = BUN) 23 mg/dL 7-18 H GLOMERULAR FILTRATION RATE (test code = GFR) 51.7 80-90 L Units of measure = ml/min/1.73 m2 CREATININE (test code = CREAT) 1.4 mg/dL 0.6-1.3 H CALCIUM (test code = CA) 8.3 mg/dL 8.0-10.5 N [id number] 03:58:00* Test Item Value Reference Range Interpretation Comments TROPONIN-I (test code = TROPI) 0.051 ng/mL 0.000-0.045 HH Negative: <= 0.045 Positive: >= 0.046 Correlation with serial results, other cardiac markers andclinical findings is necessary to determine the clinicalsignificance of this result. Results using different methodologies should not be comparedto one another as quantitative results may vary by method. CBC W/AUTO [id number] 03:32:00* Test Item Value Reference Range Interpretation Comments WHITE BLOOD CELL (test code = WBC) 6.43 x10 3/uL 4.5-11.0 N RED BLOOD CELL (test code = RBC) 3.82 x10 6/uL 4.00-5.60 L HEMOGLOBIN (test code = HGB) 10.3 g/dL 12.5-16.9 L HEMATOCRIT (test code = HCT) 32.2 % 37.5-50.7 L MEAN CELL VOLUME (test code = MCV) 84.3 fL 81.0-99.0 N MEAN CELL HGB (test code = MCH) 27.0 pg 27.0-33.0 N MEAN CELL HGB CONCETRATION (test code = MCHC) 32.0 g/dL 33.0-37. 0 L RED CELL DISTRIBUTION WIDTH CV (test code = RDW) 15.9 % 11.5- 14.5 H RED CELL DISTRIBUTION WIDTH SD (test code = RDW-SD) 49.3 fL 37 .0-54.0 N PLATELET COUNT (test code = PLT) 206 x10 3/uL 150-400 N MEAN PLATELET VOLUME (test code = MPV) 11.3 fL 7.0-9.0 H NEUTROPHIL % (test code = NT%) 67.5 % 56.0-77.0 N IMMATURE GRANULOCYTE % (test code = IG%) 0.6 % 0.0-2.0 N LYMPHOCYTE % (test code = LY%) 19.9 % 14.0-32.0 N MONOCYTE % (test code = MO%) 8.6 % 4.8-9.0 N EOSINOPHIL % (test code = EO%) 2.8 % 0.3-3.7 N BASOPHIL % (test code = BA%) 0.6 % 0.0-2.0 N NUCLEATED RBC % (test code = NRBC%) 0.0 % 0-0 N NEUTROPHIL # (test code = NT#) 4.34 x10 3/uL 2.0-7.6 N IMMATURE GRANULOCYTE # (test code = IG#) 0.04 x10 3/uL 0.00-0.03 H LYMPHOCYTE # (test code = LY#) 1.28 x10 3/uL 1.0-3.8 N MONOCYTE # (test code = MO#) 0.55 x10 3/uL 0.1-0.8 N EOSINOPHIL # (test code = EO#) 0.18 x10 3/uL 0.0-0.2 N BASOPHIL # (test code = BA#) 0.04 x10 3/uL 0.0-0.2 N NUCLEATED RBC # (test code = NRBC#) 0.00 x10 3/uL 0.0-0.1 N MANUAL DIFF REQUIRED (test code = MDIFF) NO - XR CHEST 1 [id number] 03:06:00 FAX: Connie Benoit NP [place]: St: REG FAX: Estrella Kim [facility] [phone] Name: DMITRY ARMSTRONG [facility] : 1960 Age/S: 58/M [address] [place] [address] Unit #: [id number] Loc: [place] [address] Phys: Connie Benoit NP Acct: [id number] Dis Date: Status: REG ER PHONE #: [phone] Exam Date: 09/11/2018 0254 FAX #: [phone] Reason: Chest Pain EXAMS: CPT CODE: [id number] XR CHEST 1 V 90364 EXAM: CR, XR chest one view: 09/11/2018, 0241 hours HISTORY: Chest Pain TECHNIQUE: 1 view of the chest. COMPARISON: 08/24/2018 FINDINGS: Trachea is midline. Heart is normal in size. Pulmonary vascularity is unremarkable. Calcified plaque in aortic arch. Midline sternotomy clips are present. Stable cardiac device. There is no airspace consolidation, pleural effusion or pneumothorax. Osseous structures are stable.. IMPRESSION: No appreciable interval change since prior study. SL: [JSYED-H] at 0306 Reported and signed by: Mike Solano M.D. CC: Connie Benoit NP; Estrella Blackwell MD Technologist: Bernardo Vee, RT(R); Galileo Arceo RT(R) Trnscrd Date/Time/By: 09/11/2018 (305) : By: [email or web address] Orig Print D/T: S: 09/11/2018 (308) PAGE 1 Signed Report [id number] 21:21:00* Test Item Value Reference Range Interpretation Comments GLUBED (test code = GLUBED) 314 mg/dL 74-106 H Performed by certified airport control operator at [facility] [id number] 11:32:00* Test Item Value Reference Range Interpretation Comments GLUBED (test code = GLUBED) 303 mg/dL 74-106 H Performed by certified airport control operator at [facility] [id number] 06:00:00* Test Item Value Reference Range Interpretation Comments GLUBED (test code = GLUBED) 309 mg/dL 74-106 H Performed by certified airport control operator at [facility] BASIC METABOLIC [id number] 05:44:00* Test Item Value Reference Range Interpretation Comments SODIUM (test code = NA) 136 mmol/L 136-145 N POTASSIUM (test code = K) 3.7 mmol/L 3.5-5.1 N CHLORIDE (test code = CL) 99.0 mmol/L 98-107 N CARBON DIOXIDE (test code = CO2) 30.0 mmol/L 21-32 N ANION GAP (test code = GAP) 10.7 10-20 N GLUCOSE (test code = GLU) 333 mg/dL 74-106 H BLOOD UREA NITROGEN (test code = BUN) 37 mg/dL 7-18 H GLOMERULAR FILTRATION RATE (test code = GFR) 48 mL/min >=60 Estimated GFR by using Modified MDRD formula.Chronic kidney disease is defined as either kidney damageor GFR <60 mL/min/1.73 m2 for >3 months. CREATININE (test code = CREAT) 1.50 mg/dL 0.7-1.3 H BUN/CREATININE RATIO (test code = BUN/CREA) 24.7 10-20 H CALCIUM (test code = CA) 8.4 mg/dL 8.5-10.1 L CBC W/AUTO [id number] 05:21:00* Test Item Value Reference Range Interpretation Comments WHITE BLOOD CELL (test code = WBC) 6.2 K/mm3 4.5-12.5 N RED BLOOD CELL (test code = RBC) 4.09 mill/mm3 4.0-5.8 N HEMOGLOBIN (test code = HGB) 10.9 gram/dL 13.0-17.5 L HEMATOCRIT (test code = HCT) 34.8 % 42.0-52.0 L MEAN CELL VOLUME (test code = MCV) 85.1 fL 80-98 N MEAN CELL HGB (test code = MCH) 26.7 picogram 27.0-33.0 L MEAN CELL HGB CONCETRATION (test code = MCHC) 31.3 gram/dL 33.0-36. 0 L RED CELL DISTRIBUTION WIDTH (test code = RDW) 15.6 % 11.6-16. 2 N RED CELL DISTRIBUTION WIDTH SD (test code = RDW-SD) 48.2 fL 37 .0-51.0 N PLATELET COUNT (test code = PLT) 201 K/mm3 150-450 N MEAN PLATELET VOLUME (test code = MPV) 11.9 fL 6.7-11.0 H NEUTROPHIL % (test code = NT%) 65.4 % 39.0-69.0 N IMMATURE GRANULOCYTE % (test code = IG%) 0.5 % 0.0-5.0 N LYMPHOCYTE % (test code = LY%) 22.7 % 25.0-55.0 L MONOCYTE % (test code = MO%) 9.2 % 0.0-10.0 N EOSINOPHIL % (test code = EO%) 1.6 % 0.0-5.0 N BASOPHIL % (test code = BA%) 0.6 % 0.0-1.0 N NUCLEATED RBC % (test code = NRBC%) 0.0 % 0-0 N NEUTROPHIL # (test code = NT#) 4.06 K/mm3 1.8-7.7 N IMMATURE GRANULOCYTE # (test code = IG#) 0.03 x10 3/uL 0-0.03 N LYMPHOCYTE # (test code = LY#) 1.41 K/mm3 1.0-5.0 N MONOCYTE # (test code = MO#) 0.57 K/mm3 0-0.8 N EOSINOPHIL # (test code = EO#) 0.10 K/mm3 0.0-0.5 N BASOPHIL # (test code = BA#) 0.04 K/mm3 0.0-0.2 N NUCLEATED RBC # (test code = NRBC#) 0.00 K/mm3 0.0-0.1 N MANUAL DIFF REQUIRED (test code = MDIFF) NO [id number] 21:01:00* Test Item Value Reference Range Interpretation Comments GLUBED (test code = GLUBED) 196 mg/dL 74-106 H Performed by certified airport control operator at [facility] [id number] 17:58:00* Test Item Value Reference Range Interpretation Comments GLUBED (test code = GLUBED) 90 mg/dL 74-106 N Performed by certified airport control operator at [facility] [id number] 12:07:00* Test Item Value Reference Range Interpretation Comments GLUBED (test code = GLUBED) 265 mg/dL 74-106 H Performed by certified airport control operator at [facility] [id number] 05:47:00* Test Item Value Reference Range Interpretation Comments GLUBED (test code = GLUBED) 359 mg/dL 74-106 H Performed by certified airport control operator at [facility] [id number] 20:36:00* Test Item Value Reference Range Interpretation Comments GLUBED (test code = GLUBED) 113 mg/dL 74-106 H Performed by certified airport control operator at [facility] [id number] 19:53:00* Test Item Value Reference Range Interpretation Comments GLUBED (test code = GLUBED) 76 mg/dL 74-106 N Performed by certified airport control operator at [facility] [id number] 18:05:00* Test Item Value Reference Range Interpretation Comments GLUBED (test code = GLUBED) 115 mg/dL 74-106 H Performed by certified airport control operator at [facility] [id number] 18:05:00* Test Item Value Reference Range Interpretation Comments GLUBED (test code = GLUBED) 325 mg/dL 74-106 H Performed by certified airport control operator at [facility] URINALYSIS [id number] 08:38:00* Test Item Value Reference Range Interpretation Comments UA COLOR (test code = COLU) Light-Yellow YELLOW UA APPEARANCE (test code = APPU) CLEAR CLEAR UA GLUCOSE DIPSTICK (test code = DGLUU) >1000 (4+) mg/dL NEGATIVE UA BILIRUBIN DIPSTICK (test code = BILU) NEGATIVE mg/dL NEGATIVE UA KETONE DIPSTICK (test code = KETU) NEGATIVE mg/dL NEGATIVE UA SPECIFIC GRAVITY (test code = SGU) 1.015 1.001-1.035 UA BLOOD DIPSTICK (test code = SETH) Negative mg/dL NEGATIVE UA PH DIPSTICK (test code = JAMIE) 5.0 5.0-8.0 UA PROTEIN DIPSTICK (test code = PROU) NEGATIVE mg/dL NEGATIVE UA UROBILINIOGEN DIPSTICK (test code = URO) Normal mg/dL NEGATIVE UA NITRITE DIPSTICK (test code = NORRIS) NEGATIVE NEGATIVE UA LEUKOCYTE ESTERASE W REFLEX (test code = LEUUR) NEGATIVE Mikaela/uL NEGATIVE UA WBC (test code = WBCU) 0-5 per HPF 0-5 UA RBC (test code = RBCU) 0-2 #/HPF 0-5 UA EPITHELIAL CELLS (test code = EPIU) FEW per HPF FEW UA BACTERIA (test code = BACU) FEW #/HPF NONE A UA HYALINE CAST (test code = HYALU) 0-2 #/LPF 0-5 UA MUCUS (test code = MUCU) FEW #/LPF FEW Urine Source? Clean [id number] 06:21:00* Test Item Value Reference Range Interpretation Comments GLUBED (test code = GLUBED) 234 mg/dL 74-106 H Performed by certified airport control operator at [facility] BASIC METABOLIC [id number] 05:14:00* Test Item Value Reference Range Interpretation Comments SODIUM (test code = NA) 136 mmol/L 136-145 N POTASSIUM (test code = K) 3.3 mmol/L 3.5-5.1 L CHLORIDE (test code = CL) 96.0 mmol/L 98-107 L CARBON DIOXIDE (test code = CO2) 32.0 mmol/L 21-32 N ANION GAP (test code = GAP) 11.3 10-20 N GLUCOSE (test code = GLU) 224 mg/dL 74-106 H BLOOD UREA NITROGEN (test code = BUN) 40 mg/dL 7-18 H GLOMERULAR FILTRATION RATE (test code = GFR) 52 mL/min >=60 Estimated GFR by using Modified MDRD formula.Chronic kidney disease is defined as either kidney damageor GFR <60 mL/min/1.73 m2 for >3 months. CREATININE (test code = CREAT) 1.40 mg/dL 0.7-1.3 H BUN/CREATININE RATIO (test code = BUN/CREA) 28.6 10-20 H CALCIUM (test code = CA) 9.3 mg/dL 8.5-10.1 N THYROID PROFILE [id number] 05:14:00* Test Item Value Reference Range Interpretation Comments T3 UPTAKE (test code = T3UP) 39.0 % 30.0-40.0 N T4 (THYROXINE) (test code = T4) 4.8 ug/dL 4.5-13.9 N T7 (FREE THYROXINE INDEX) (test code = T7) 1.87 FTI 1.3-5.1 N THYROID STIMULATING HORMONE (test code = TSH) 3.300 uIU/mL 0.36-3.7 4 N TSH REFERENCE RANGES: EUTHYROID: 0.35 - 4.3 mIU/mL HYPO : > 5.5 mIU/mL HYPER : < 0.35 mIU/mL BASIC METABOLIC [id number] 04:56:00* Test Item Value Reference Range Interpretation Comments SODIUM (test code = NA) 136 mmol/L 136-145 N POTASSIUM (test code = K) 3.3 mmol/L 3.5-5.1 L CHLORIDE (test code = CL) 96.0 mmol/L 98-107 L CARBON DIOXIDE (test code = CO2) mmol/L 21-32 ANION GAP (test code = GAP) 10-20 GLUCOSE (test code = GLU) mg/dL 74-106 BLOOD UREA NITROGEN (test code = BUN) mg/dL 7-18 GLOMERULAR FILTRATION RATE (test code = GFR) mL/min >=60 CREATININE (test code = CREAT) mg/dL 0.7-1.3 BUN/CREATININE RATIO (test code = BUN/CREA) 10-20 CALCIUM (test code = CA) mg/dL 8.5-10.1 THYROID PROFILE [id number] 04:56:00* Test Item Value Reference Range Interpretation Comments T3 UPTAKE (test code = T3UP) % 30.0-40.0 T4 (THYROXINE) (test code = T4) ug/dL 4.5-13.9 T7 (FREE THYROXINE INDEX) (test code = T7) FTI 1.3-5.1 THYROID STIMULATING HORMONE (test code = TSH) uIU/mL 0.36-3.7 4 [id number] 20:08:00* Test Item Value Reference Range Interpretation Comments GLUBED (test code = GLUBED) 191 mg/dL 74-106 H Performed by certified airport control operator at [facility] [id number] 19:19:00* Test Item Value Reference Range Interpretation Comments GLUBED (test code = GLUBED) 418 mg/dL 74-106 H Performed by certified airport control operator [facility] [id number] 14:31:00* Test Item Value Reference Range Interpretation Comments GLYCOSYLATED HEMOGLOBIN (HA1C) (test code = GLYHGB) 8.7 % HbA1 4. 8-6.0 H ESTIMATED AVERAGE GLUCOSE (test code = EAG) 203 MG/DL T4 [id number] 14:29:00* Test Item Value Reference Range Interpretation Comments T4 FREE (test code = T4F) 0.98 ng/dL 0.76-1.46 N THYROID STIMULATING [id number] 14:29:00* Test Item Value Reference Range Interpretation Comments THYROID STIMULATING HORMONE (test code = TSH) 2.490 uIU/mL 0.36-3.7 4 N TSH REFERENCE RANGES: EUTHYROID: 0.35 - 4.3 mIU/mL HYPO : > 5.5 mIU/mL HYPER : < 0.35 mIU/mL [id number] 12:51:00* Test Item Value Reference Range Interpretation Comments GLUBED (test code = GLUBED) 480 mg/dL 74-106 H Per[facility] by certified airport control operator [facility] [id number] 09:02:00* Test Item Value Reference Range Interpretation Comments GLUBED (test code = GLUBED) 460 mg/dL 74-106 H Performed by certified airport control operator [facility] [id number] 08:31:00* Test Item Value Reference Range Interpretation Comments TROPONIN-I (test code = TROPI) 1.550 ng/mL 0-0.045 HH Results called to PREVIOUS CALLEDby V.LAB.P 08/25/18 0831 COMMENTS TO CLINICAL RESOURCE DIRECTOR: COLLECT 3 HOURS AFTER PREVIOUS [id number] 06:05:00* Test Item Value Reference Range Interpretation Comments GLUBED (test code = GLUBED) 459 mg/dL 74-106 H Performed by certified airport control operator at [facility] [id number] 05:33:00* Test Item Value Reference Range Interpretation Comments TROPONIN-I (test code = TROPI) 0.613 ng/mL 0-0.045 HH Results called to [id number] by [email or web address] 08/25/18 0533Critical results verified and read back by Nurse? Y COMMENTS TO CLINICAL RESOURCE DIRECTOR: COLLECT 3 HOURS AFTER PREVIOUS SAMPLELACTIC [id number] 05:05:00* Test Item Value Reference Range Interpretation Comments LACTIC ACID (test code = LACT) 1.6 mmol/L 0.4-1.9 N [id number] 03:53:00* Test Item Value Reference Range Interpretation Comments GLUBED (test code = GLUBED) 434 mg/dL 74-106 H Performed by certified airport control operator at [facility] LACTIC [id number] 01:51:00* Test Item Value Reference Range Interpretation Comments LACTIC ACID (test code = LACT) 2.6 mmol/L 0.4-1.9 HH Results called to [id number] by [email or web address] 08/25/18 0150Critical results verified and read back by Nurse? Y - XR CHEST 1 [id number] 23:48:00 FAX: Manuel Gunter MD [phone] [place]: [address] St: REG FAX: Estrella Kim [facility] [phone] Name: DMITRY ARMSTRONG JR [facility] : 1960 Age/S: 58/M [address] [facility] Unit #: [id number] Loc: TRAN [place] [address] Phys: Manuel Gunter MD Acct: [id number] Dis Date: Status: REG ER PHONE #: [phone] Exam Date: 08/24/2018 2332 FAX #: [phone] Reason: Shortness of Breath EXAMS: CPT CODE: [id number] XR CHEST 1 V 57024 - XR CHEST 1 V, 08/24/2018 10:34 PM Reason For Examination: Shortness of Breath Comparison: July 13, 2017 Location: R16 Findings LUNGS: No definite pulmonary edema or consolidation PLEURA: No pleural effusions CARDIOMEDIASTINAL SILHOUETTE Unremarkable with the exception of cardiac device again noted IMPRESSION: No plain film evidence of acute cardiopulmonary abnormality at 0086 Reported and signed by: Kaylee Luque M.D. CC: Manuel Gunter MD; Estrella Kim Technologist: Hilaria Robin Trnscrd Date/Time/By: 08/24/2018 (0058) : By: [email or web address] Orig Print D/T: S: 08/24/2018 (9649) PAGE 1 Signed Report PROCALCITONIN (PCT) 2018-08-24 23:35:00* Test Item Value Reference Range Interpretation Comments PROCALCITONIN (PCT) (test code = PROCAL) < 0.05 ng/ml Concentration Interpretation (ng/mL) <0.51 Sepsis is not likely. Local bacterial infection is possible. (LOW RISK for progression to Sepsis) 0.51 - 2.00 Sepsis is possible, but other conditions are known to elevate PCT as well. (MODERATE RISK for progression to Sepsis) > 2.00 Sepsis is likely, unless other causes are known. (HIGH RISK for progression to Severe Sepsis or Septic Shock) 10.00 High likelihood of Severe Sepsis or Septic or higher Shock. *Increased PCT levels may not always be related to systemic bacterial infection.*Low PCT levels do not automatically exclude the presence of bacterial infection.*All results should be interpreted taking into account the patients history. B-TYPE NATRIURETIC [id number] 23:35:00* Test Item Value Reference Range Interpretation Comments B-TYPE NATRIURETIC PEPTIDE (test code = BNP) 166.90 pgram/mL 0-100 H LACTIC [id number] 23:21:00* Test Item Value Reference Range Interpretation Comments LACTIC ACID (test code = LACT) 3.0 mmol/L 0.4-1.9 HH Results called to [id number] by [email or web address] 08/24/18 2320Critical results verified and read back by Nurse? Y BASIC METABOLIC [id number] 23:21:00* Test Item Value Reference Range Interpretation Comments SODIUM (test code = NA) 128 mmol/L 136-145 L POTASSIUM (test code = K) 3.4 mmol/L 3.5-5.1 L CHLORIDE (test code = CL) 90.0 mmol/L 98-107 L CARBON DIOXIDE (test code = CO2) 29.0 mmol/L 21-32 N ANION GAP (test code = GAP) 12.4 10-20 N GLUCOSE (test code = GLU) 413 mg/dL 74-106 H BLOOD UREA NITROGEN (test code = BUN) 42 mg/dL 7-18 H GLOMERULAR FILTRATION RATE (test code = GFR) 36 mL/min >=60 Estimated GFR by using Modified MDRD formula.Chronic kidney disease is defined as either kidney damageor GFR <60 mL/min/1.73 m2 for >3 months. CREATININE (test code = CREAT) 1.90 mg/dL 0.7-1.3 H BUN/CREATININE RATIO (test code = BUN/CREA) 22.1 10-20 H CALCIUM (test code = CA) 8.7 mg/dL 8.5-10.1 N [id number] 23:21:00* Test Item Value Reference Range Interpretation Comments TROPONIN-I (test code = TROPI) <0.015 ng/mL 0-0.045 N BASIC METABOLIC [id number] 23:18:00* Test Item Value Reference Range Interpretation Comments SODIUM (test code = NA) 128 mmol/L 136-145 L POTASSIUM (test code = K) 3.4 mmol/L 3.5-5.1 L CHLORIDE (test code = CL) 90.0 mmol/L 98-107 L CARBON DIOXIDE (test code = CO2) mmol/L 21-32 ANION GAP (test code = GAP) 10-20 GLUCOSE (test code = GLU) mg/dL 74-106 BLOOD UREA NITROGEN (test code = BUN) mg/dL 7-18 GLOMERULAR FILTRATION RATE (test code = GFR) mL/min >=60 CREATININE (test code = CREAT) mg/dL 0.7-1.3 BUN/CREATININE RATIO (test code = BUN/CREA) 10-20 CALCIUM (test code = CA) mg/dL 8.5-10.1 [id number] 23:18:00* Test Item Value Reference Range Interpretation Comments TROPONIN-I (test code = TROPI) ng/mL 0-0.045 CBC W/O [id number] 23:07:00* Test Item Value Reference Range Interpretation Comments WHITE BLOOD CELL (test code = WBC) 6.7 K/mm3 4.5-12.5 N RED BLOOD CELL (test code = RBC) 4.30 mill/mm3 4.0-5.8 N HEMOGLOBIN (test code = HGB) 11.5 gram/dL 13.0-17.5 L HEMATOCRIT (test code = HCT) 35.4 % 42.0-52.0 L MEAN CELL VOLUME (test code = MCV) 82.3 fL 80-98 N MEAN CELL HGB (test code = MCH) 26.7 picogram 27.0-33.0 L MEAN CELL HGB CONCETRATION (test code = MCHC) 32.5 gram/dL 33.0-36. 0 L RED CELL DISTRIBUTION WIDTH (test code = RDW) 14.8 % 11.6-16. 2 N PLATELET COUNT (test code = PLT) 208 K/mm3 150-450 N MEAN PLATELET VOLUME (test code = MPV) 11.4 fL 6.7-11.0 H VQ LUNG SCAN VENT [id number] 01:29:00 [place] [address] Patient Name: DMITRY ARMSTRONG JR MR #: [id number] : 1960 Age/Sex: 58/M Req #: [id number] Adm Physician: Ordered by: SENIA DEGROOT MD Report #: [id number] Location: ER Room/Bed: Procedure: [id number] NM/VQ LUNG SCAN VENT PERFUSION Exam Date: Exam Time: REPORT STATUS: Signed Regino tilation/perfusion Lung Scan Clinical Information: Difficulty breathing Comparison: CXR single view of the same date Discussion: Xenon-133 in a gaseous state 10.3 mCi was administered via inhalation with an initial w chuckie in, re-breathing equilibrium, and delayed washout images obtained in the p osterior projection. Distribution of tracer activity appears physiologic throu ghout the lungs. There are no segmental ventilatory defects or washout abnorm alities to indicate diffuse to regional airways disease. Perfusion images of the lungs were obtained in multiple projections following intravenous admi nistration of approximately 6 mCi of Tc-99m MAA. Distribution of tracer appear s physiologic throughout the lungs. The contours of the lungs are well keyona cated. There are no segmental perfusion defects of any size. Impression: Scan findings represent a VERY LOW probability for acute pulmonary embolic disease based on the PIOPED II Criteria. Signed by: Dr. Erlin Pa MD on 08/23/2018 1:33 AM Dictated By: ERLIN PA MD 2 Transcribed By: JOHN on 08/23/18132 COPY TO: SENIA DEGROOT MD B-Type Natriuretic [id number] 23:16:00* Test Item Value Reference Range Interpretation Comments B-Type Natriuretic Peptide (test code = 76349-3) 184.5 0-100 H [facility] Quantitative (PE/DVT)2018-08-22 21:40:00* Test Item Value Reference Range Interpretation Comments D-Dimer Quantitative (PE/DVT) (test code = 57786-0) 0.54 0. 00-0.45 H [facility] (PE/DVT)2018-08-22 21:40:00* Test Item Value Reference Range Interpretation Comments D-Dimer Quantitative (PE/DVT) (test code = 40818-0) 0.54 0. 00-0.45 H [facility] (PE/DVT)2018-08-22 21:40:00* Test Item Value Reference Range Interpretation Comments D-Dimer Quantitative (PE/DVT) (test code = 44140-3) 0.54 0. 00-0.45 H [facility] CampusCreatine Kinase [id number] 21:29:00* Test Item Value Reference Range Interpretation Comments Creatine Kinase MB (test code = 49306-1) 1.60 0-5.0 [facility] CampusTroponin [id number] 21:29:00* Test Item Value Reference Range Interpretation Comments Troponin I (test code = XKK0482) 0.021 0-0.300 [facility] [id number] 21:15:00* Test Item Value Reference Range Interpretation Comments Sodium Level (test code = 2951-2) 135 136-145 L [facility] CampusPotassium [id number] 21:15:00* Test Item Value Reference Range Interpretation Comments Potassium Level (test code = 2823-3) 3.5 3.5-5.1 [facility] CampusChloride [id number] 21:15:00* Test Item Value Reference Range Interpretation Comments Chloride Level (test code = 2075-0) 95 98-107 L [facility] CampusCarbon Dioxide [id number] 21:15:00* Test Item Value Reference Range Interpretation Comments Carbon Dioxide Level (test code = 2028-9) 28 22-29 [facility] CampusAnion [id number] 21:15:00* Test Item Value Reference Range Interpretation Comments Anion Gap (test code = 95431-7) 15.5 8-16 [facility] CampusBlood Urea [id number] 21:15:00* Test Item Value Reference Range Interpretation Comments Blood Urea Nitrogen (test code = 3094-0) 37 7-26 H [facility] CampusCreatinine2019-06-18 21:15:00* Test Item Value Reference Range Interpretation Comments Creatinine (test code = 2160-0) 2.01 0.72-1.25 H [facility] CampusBUN/Creatinine [id number] 21:15:00* Test Item Value Reference Range Interpretation Comments BUN/Creatinine Ratio (test code = 3097-3) 18 6-25 [facility] CampusEstimat Glomerular Filtration Rate 2018-08-22 21:15:00* Test Item Value Reference Range Interpretation Comments Estimat Glomerular Filtration Rate (test code = 911546068) 34 >60 L Ranges were taken from the National Kidney Disease Education Program and the [facility] [employer] literature.Reference ranges:60 or greater: Ejiify20-61 ( for 3 consecutive months): Chronic kidney disease 15 or less: Kidney failureThe Hospitals of Providence East CampusGlucose Tkaeb3091-02-40 21:15:00* Test Item Value Reference Range Interpretation Comments Glucose Level (test code = YZI0317) 393 74-118 H [facility] CampusCalcium Wbllc2961-54-95 21:15:00* Test Item Value Reference Range Interpretation Comments Calcium Level (test code = 41281-0) 9.5 8.4-10.2 [facility] CampusTotal Dlidyjadx3318-33-15 21:15:00* Test Item Value Reference Range Interpretation Comments Total Bilirubin (test code = 1975-2) 0.5 0.2-1.2 [facility] CampusAspartate Amino Transf (AST/SGOT) 2018-08-22 21:15:00* Test Item Value Reference Range Interpretation Comments Aspartate Amino Transf (AST/SGOT) (test code = Aspartate Amino Transf (AST/SGOT)) 15 5-34 [facility] CampusAlanine Aminotransferase (ALT/SGPT) 2018-08-22 21:15:00* Test Item Value Reference Range Interpretation Comments Alanine Aminotransferase (ALT/SGPT) (test code = 1742-6) 20 0-55 [facility] CampusTotal Ftawcdp4388-54-08 21:15:00* Test Item Value Reference Range Interpretation Comments Total Protein (test code = 2885-2) 7.9 6.5-8.1 [facility] CampusAlbumin2019-06-18 21:15:00* Test Item Value Reference Range Interpretation Comments Albumin (test code = 1751-7) 3.5 3.5-5.0 [facility] CampusGlobulin2019-06-18 21:15:00* Test Item Value Reference Range Interpretation Comments Globulin (test code = 23503-2) 4.4 2.3-3.5 H [facility] CampusAlbumin/Globulin Xufmy5252-05-69 21:15:00 * Test Item Value Reference Range Interpretation Comments Albumin/Globulin Ratio (test code = 1759-0) 0.8 0.8-2.0 [facility] CampusAlkaline Fxjkaozrwef3787-21-25 21:15:00* Test Item Value Reference Range Interpretation Comments Alkaline Phosphatase (test code = 6768-6) 113 40-150 [facility] CampusCreatine Upkpdl7541-95-15 21:15:00* Test Item Value Reference Range Interpretation Comments Creatine Kinase (test code = 2157-6) 63 30-200 [facility] CampusCHEST SINGLE (PORTABLE)2018-08-22 21:06:00 [facility] [address] [place] [address] Patient Name: DMITRY ARMSTRONG JR MR #: [id number] : 1960 Age/Sex: 58/M Req #: [id number] [facility] Physician: Ordered by: SENIA DEGROOT MD Report #: [id number] Location: ER Room/Bed: Procedure: [id number] DX/CHEST SINGLE (PORTABLE) Exam Date: 08/22/18 Exam Time: 1944 REPORT STATUS: Signed EXAMINATION: CHEST SINGLE (PORTABLE) INDICATION: ERMD ORDER [id number] 1946 Y COMPARISON: 07/06/2017 FINDINGS: AP view TUBES and LINES: There is a lead projecting over the superior left heart, probably a distal lead of left lower chest wall cardiac device. LUNGS: Limited by body habitus. Lungs are well inflated. Central vascular congestion and mild interstitial edema. PLEURA: No pleural effusion or pneu mothorax. HEART AND MEDIASTINUM: The cardiac silhouette is enlarged on thi s AP view. Median sternotomy wires and mediastinal surgical clips are seen. BONES AND SOFT TISSUES: No acute osseous lesion. Degenerative changes of b ilateral shoulder joints. Soft tissues are unremarkable. UPPER ABDOMEN: No free air under the diaphragm. IMPRESSION: Enlarged cardiac silhouet te, central vascular congestion, and mild interstitial edema. Signed b y: Dr. Erlin Pa MD on 08/22/2018 9:09 PM Dictated By: ERLIN PA MD 08 Transcribed By: JOHN on 08/22/182108 COPY TO: SENIA DEGROOT MD White Blood Mwleu2826-53-32 20:57:00* Test Item Value Reference Range Interpretation Comments White Blood Count (test code = 6690-2) 7.35 4.8-10.8 [facility] CampusRed Blood Wxmbj1031-37-60 20:57:00* Test Item Value Reference Range Interpretation Comments Red Blood Count (test code = 789-8) 4.47 4.3-5.7 [facility] CampusHemoglobin2019-06-18 20:57:00* Test Item Value Reference Range Interpretation Comments Hemoglobin (test code = 20995-1) 12.0 14.0-18.0 L [facility] CampusHematocrit2019-06-18 20:57:00* Test Item Value Reference Range Interpretation Comments Hematocrit (test code = 4544-3) 36.4 38.2-49.6 L [facility] CampusMean Corpuscular Cnxnqp6112-60-45 20:57:00* Test Item Value Reference Range Interpretation Comments Mean Corpuscular Volume (test code = 787-2) 81.4 81-99 [facility] CampusMean Corpuscular Lqcbqyyffi3935-14-72 20:57:00* Test Item Value Reference Range Interpretation Comments Mean Corpuscular Hemoglobin (test code = 785-6) 26.8 28-32 L [facility] CampusMean Corpuscular Hemoglobin Concent 2018-08-22 20:57:00* Test Item Value Reference Range Interpretation Comments Mean Corpuscular Hemoglobin Concent (test code = 786-4) 33.0 31-35 [facility] CampusRed Cell Distribution Nbsqu2667-10-64 20:57:00* Test Item Value Reference Range Interpretation Comments Red Cell Distribution Width (test code = 96007-9) 15.3 11.7 -14.4 H [facility] CampusPlatelet Fmsix4001-49-63 20:57:00* Test Item Value Reference Range Interpretation Comments Platelet Count (test code = 777-3) 223 140-360 [facility] CampusNeutrophils (%) (Auto)2018-08-22 20:57:00 * Test Item Value Reference Range Interpretation Comments Neutrophils (%) (Auto) (test code = 62788-1) 75.3 38.7-80.0 [facility] CampusLymphocytes (%) (Auto)2018-08-22 20:57:00 * Test Item Value Reference Range Interpretation Comments Lymphocytes (%) (Auto) (test code = 736-9) 14.6 18.0-39.1 L [facility] CampusMonocytes (%) (Auto)2018-08-22 20:57:00* Test Item Value Reference Range Interpretation Comments Monocytes (%) (Auto) (test code = 5905-5) 7.8 4.4-11.3 [facility] CampusEosinophils (%) (Auto)2018-08-22 20:57:00 * Test Item Value Reference Range Interpretation Comments Eosinophils (%) (Auto) (test code = 713-8) 1.5 0.0-6.0 [facility] CampusBasophils (%) (Auto)2018-08-22 20:57:00* Test Item Value Reference Range Interpretation Comments Basophils (%) (Auto) (test code = 706-2) 0.4 0.0-1.0 [facility] CampusIM GRANULOCYTES %2018-08-22 20:57:00* Test Item Value Reference Range Interpretation Comments IM GRANULOCYTES % (test code = IM GRANULOCYTES %) 0.4 0.0- 1.0 [facility] CampusNeutrophils # (Auto)2018-08-22 20:57:00* Test Item Value Reference Range Interpretation Comments Neutrophils # (Auto) (test code = 751-8) 5.5 2.1-6.9 [facility] CampusLymphocytes # (Auto)2018-08-22 20:57:00* Test Item Value Reference Range Interpretation Comments Lymphocytes # (Auto) (test code = 82508-3) 1.1 1.0-3.2 [facility] CampusMonocytes # (Auto)2018-08-22 20:57:00* Test Item Value Reference Range Interpretation Comments Monocytes # (Auto) (test code = 742-7) 0.6 0.2-0.8 [facility] CampusEosinophils # (Auto)2018-08-22 20:57:00* Test Item Value Reference Range Interpretation Comments Eosinophils # (Auto) (test code = 711-2) 0.1 0.0-0.4 [facility] CampusBasophils # (Auto)2018-08-22 20:57:00* Test Item Value Reference Range Interpretation Comments Basophils # (Auto) (test code = 704-7) 0.0 0.0-0.1 [facility] CampusAbsolute Immature Granulocyte (auto 2018-08-22 20:57:00* Test Item Value Reference Range Interpretation Comments Absolute Immature Granulocyte (auto (nitin t code = Absolute Immature Granulocyte (auto) 0.03 0-0.1 [facility] CampusPROTHROMBIN [id number] 14:59:00* Test Item Value Reference Range Interpretation Comments PROTHROMBIN TIME PATIENT (test code = PTP) 12.0 seconds 9.0-14.0 N INTERNATIONAL NORMAL RATIO (test code = INR) 1.0 0.8-1.2 N The therapeutic range for oral anticoagulant therapy formost indications is an international normalized ratio (INR)of between 2.0 and 3.0. The recommended therapeutic INRrange for various clinical situations is listed below: Clinical Situation INR range Pulmonary e mbolism treatment (2.0-3.0)Venous thrombosis treatmentVenous thrombosis prophylaxis (high risk surgery)Prevention of systemic embolism from: Acute myocardial infarction Valvular heart disease Atrial fibrillation Mechanical prosthetic heart valves (2.5-3.5) IS PATIENT ON ANTICOAGULANTS? NTHROMBOPLASTIN TIME [id number] 14:59:00* Test Item Value Reference Range Interpretation Comments THROMBOPLASTIN TIME PARTIAL (test code = PTT) 30.8 seconds 25.0-36. 5 N IS PATIENT ON ANTICOAGULANTS? NBASIC METABOLIC [id number] 14:58:00* Test Item Value Reference Range Interpretation Comments SODIUM (test code = NA) 132 mmol/L 136-145 L POTASSIUM (test code = K) 3.9 mmol/L 3.5-5.1 N CHLORIDE (test code = CL) 95.0 mmol/L 98-107 L CARBON DIOXIDE (test code = CO2) 27.0 mmol/L 21-32 N ANION GAP (test code = GAP) 13.9 10-20 N GLUCOSE (test code = GLU) 113 mg/dL 74-106 H BLOOD UREA NITROGEN (test code = BUN) 47 mg/dL 7-18 H GLOMERULAR FILTRATION RATE (test code = GFR) 21 mL/min >=60 Estimated GFR by using Modified MDRD formula.Chronic kidney disease is defined as either kidney damageor GFR <60 mL/min/1.73 m2 for >3 months. CREATININE (test code = CREAT) 3.00 mg/dL 0.7-1.3 H BUN/CREATININE RATIO (test code = BUN/CREA) 15.7 10-20 N CALCIUM (test code = CA) 8.8 mg/dL 8.5-10.1 N HEPATIC FUNCTION [id number] 14:58:00* Test Item Value Reference Range Interpretation Comments TOTAL PROTEIN (test code = PROT) 8.1 gram/dL 6.4-8.2 N ALBUMIN (test code = ALB) 3.3 g/dL 3.4-5.0 L GLOBULIN (test code = GLOB) 4.8 gram/dL 2.7-4.2 H ALBUMIN/GLOBULIN RATIO (test code = A/G) 0.7 0.75-1.50 L BILIRUBIN TOTAL (test code = BILT) 0.40 mg/dL 0.0-1.0 N BILIRUBIN DIRECT (test code = BILD) 0.14 mg/dL 0.0-0.20 N SGOT/AST (test code = AST) 16 IUnit/L 15-37 N SGPT/ALT (test code = ALT) 24 IUnit/L 12-78 N ALKALINE PHOSPHATASE TOTAL (test code = ALKP) 95 IUnit/L 45-117 N Note change in reference range due to change in reagent. [id number] 14:58:00* Test Item Value Reference Range Interpretation Comments TROPONIN-I (test code = TROPI) 0.022 ng/mL 0-0.045 N CBC W/O [id number] 14:50:00* Test Item Value Reference Range Interpretation Comments WHITE BLOOD CELL (test code = WBC) 8.3 K/mm3 4.5-12.5 N RED BLOOD CELL (test code = RBC) 4.43 mill/mm3 4.0-5.8 N HEMOGLOBIN (test code = HGB) 11.6 gram/dL 13.0-17.5 L HEMATOCRIT (test code = HCT) 36.3 % 42.0-52.0 L MEAN CELL VOLUME (test code = MCV) 81.9 fL 80-98 N MEAN CELL HGB (test code = MCH) 26.2 picogram 27.0-33.0 L MEAN CELL HGB CONCETRATION (test code = MCHC) 32.0 gram/dL 33.0-36. 0 L RED CELL DISTRIBUTION WIDTH (test code = RDW) 15.6 % 11.6-16. 2 N PLATELET COUNT (test code = PLT) 277 K/mm3 150-450 N MEAN PLATELET VOLUME (test code = MPV) 11.4 fL 6.7-11.0 H BASIC METABOLIC [id number] 14:45:00* Test Item Value Reference Range Interpretation Comments SODIUM (test code = NA) 132 mmol/L 136-145 L POTASSIUM (test code = K) 3.9 mmol/L 3.5-5.1 N CHLORIDE (test code = CL) 95.0 mmol/L 98-107 L CARBON DIOXIDE (test code = CO2) mmol/L 21-32 ANION GAP (test code = GAP) 10-20 GLUCOSE (test code = GLU) mg/dL 74-106 BLOOD UREA NITROGEN (test code = BUN) mg/dL 7-18 GLOMERULAR FILTRATION RATE (test code = GFR) mL/min >=60 CREATININE (test code = CREAT) mg/dL 0.7-1.3 BUN/CREATININE RATIO (test code = BUN/CREA) 10-20 CALCIUM (test code = CA) mg/dL 8.5-10.1 HEPATIC FUNCTION [id number] 14:45:00* Test Item Value Reference Range Interpretation Comments TOTAL PROTEIN (test code = PROT) gram/dL 6.4-8.2 ALBUMIN (test code = ALB) g/dL 3.4-5.0 GLOBULIN (test code = GLOB) gram/dL 2.7-4.2 ALBUMIN/GLOBULIN RATIO (test code = A/G) 0.75-1.50 BILIRUBIN TOTAL (test code = BILT) mg/dL 0.0-1.0 BILIRUBIN DIRECT (test code = BILD) mg/dL 0.0-0.20 SGOT/AST (test code = AST) IUnit/L 15-37 SGPT/ALT (test code = ALT) IUnit/L 12-78 ALKALINE PHOSPHATASE TOTAL (test code = ALKP) IUnit/L 45-117 YSXSPNFO-[id number] 14:45:00* Test Item Value Reference Range Interpretation Comments TROPONIN-I (test code = TROPI) ng/mL 0-0.045 - XR CHEST 1 [id number] 14:37:00 FAX: Eugene Joe DO [place]: St: [facility] FAX: KimEstrella Simon [facility] [phone] Name: DMITRY ARMSTRONG [facility] : 1960 Age/S: 58/M [address] [facility] Unit #: [id number] Loc: [place] [address] Phys: Eugene Joe DO Acct: [id number] Dis Date: Status: REG ER PHONE #: [phone] Exam Date: 07/13/2018 1434 FAX #: [phone] Reason: CHEST PAIN EXAMS: CPT CODE: [id number] XR CHEST 1 V 86360 REASON FOR EXAM: CHEST PAIN EXAM ORDER DATE: 07/13/2018 2:09 PM Ordering Maricel: Eugene Joe DO PROCEDURE: - XR CHEST 1 V COMPARISON: 07/02/2018 FINDINGS: Portable AP frontal view of the chest obtained at 2:23 PM shows clear lungs without evidence of consolidation. There is no evidence of effusion. The heart size is minimally enlarged. Stable appearance of the single lead pacemaker. Pulmonary vasculatures are unremarkable. IMPRESSION: No active disease. at 1437 Reported and signed by: Rishabh Simon M.D. CC: Eugene Joe DO; Estrella Kim Technologist: MEHDI CONTE) Trnscrd Date/Time/By: 07/13/2018 (0973) : By: Ekaterina Orig Print D/T: S: 07/13/2018 (4348) PAGE 1 Signed Report - XR CHEST 2 [id number] 12:20:00 FAX: Estrella Kim [phone] [place]: St: REG Name: DMITRY ALVARADO [facility] : [birth year] Age/S: 58/M [address] [facility] Unit #: [id number] Loc: [place] [address] Phys: Suyapa Gauthier Acct: [id number] Dis Date: Status: REG ER PHONE #: [phone] Exam Date: 07/02/2018 1216 FAX #: [phone] Reason: cough EXAMS: CPT CODE: [id number] XR CHEST 2 V 75431 HISTORY: cough TECHN IQUE: PA and lateral chest x-ray COMPARISON: 03/08/18 FINDINGS: No airspace consolidation or pleural effusion. Myocardia l megaly. Implanted cardiac defibrillator. Mediastinal silhouette is unremarkable. Thoracic spondylosis. Sternotomy wires. IMPRESSIO N: No airspace consolidation or pleural effusion. at 5992 Reported and signed by: Estrellita Yen D.O. CC: Alphonso Kim Technologist: ROSANNE Oh) Trnscrd Date/Time/By: 07/02/2018 (1220) : By: [email or web address] Orig Print D/T: S: 07/02/2018 (5103) PAGE 1 Signed Report - CT UP EXTREM W/O CONT [id number] 11:20:00 Name: DMITRY ARMSTRONG [facility] : 1960 Age/S: 57 / M [address] [facility] Unit #: [id number] Loc: [place] [address] Phys: Estrella Kim MD Acct: [id number] Dis Date: Status: REG CLI PHONE #: [phone] Exam Date: 04/19/2018 1039 FAX #: [phone] Reason: HAND/WRIST PAIN EXAMS: CPT CODE: [id number] CT UP EXTREM W/[place] [address] HISTORY: Hand and wrist pain. COMPARISON: None available. CT wrist and hand without contrast: Automated exposure control. 3-D images. Flexed phalanges slightly limited evaluation. Carpal joint spaces are preserved. No AVN of the lunate or the scaphoid bones. Radiocarpal joints are preserved. Vascular calcifications are noted. Carpal metacarpal joint spaces are preserved. MCP joints are preserved. Mildly narrowed DIP and PIP joint spaces. No erosive or destructive changes are noted. The flexor retinaculum and the flexor tendons appear within normal limits. No fluid is noted. The extensor compartments appear unremarkable as well without obvious fluid. No cellulitis or drainable fluid collection. The musculature demonstrated normal density. IMPRESSION: No acute fracture or dislocation or erosive or destructive change. Mild mildly narrowed DIP and the PIP joint spaces. The flexor and extensor compartments appear unremarkable without fluid or inflammatory change. No AVN of the lunate or the scaphoid bones. at 1120 Reported and signed by: Isreal Murillo M.D. CC: Estrella Kim Technologist:Abdifatah Luo RT(R),(MR ),(CT) CTDI: DLP: Trnscb Date/Time: 04/19/2018 (1120) [email or web address] Orig Print D/T: S: 04/19/2018 (1123) CTDI: DLP: PAGE 1 Signed Report - XR HAND 3 + V [id number] 16:53:00 FAX: Eugene Joe DO [place]: St: REG Name: DMITRY ALVARADO [facility] : [birth year] Age/S: 57/M [address] [facility] Unit #: [id number] Loc: [place] [address] Phys: Eugene Joe DO Acct: [id number] Dis Date: Status: REG ER PHONE #: [phone] Exam Date: 03/28/2018 1642 FAX #: [phone] Reason: pain EXAMS: CPT CODE: [id number] XR HAND 3 + [place] [address]448 EXAM: Right forearm, 2 views and r ight hand, 3 views; INFORMATION: Trauma, pain; FINDI NGS: Imaged bones are intact; no evidence of fracture or dislocation. Mild degenerative changes of distal interphalangeal joints. Extensive ar terial calcifications. IMPRESSION: 1. No evidence of ac samantha osseous trauma. 2. 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 at 8848 Reported and signed by: Niko Steven M.D. CC: Eugene Kumar DO Technologist: MONE BECKER Trnscrd Date/Time/By: 03/28/2018 (16 53) : By: GloriaGRW Orig Print D/T: S: 03/28/2018 (7330) PAGE 1 Signed Report - XR FOREARM 2 VIEWS [id number] 16:53:00 FAX: Eugene Joe DO [place]: St: REG Name: DMITRY ALVARADO [facility] : [birth year] 57 Age/S: 57/M [address] [facility] Unit #: [id number] Loc: [place] [address] Phys: Eugene Joe DO Acct: [id number] Dis Date: Status: REG ER PHONE #: [phone] Exam Date: 03/28/2018 1642 FAX #: [phone] Reason: pain EXAMS: CPT CODE: [id number] XR [place]EARM [address] [place] [address] EXAM: Right forearm, 2 views and r ight hand, 3 views; INFORMATION: Trauma, pain; FINDI NGS: Imaged bones are intact; no evidence of fracture or dislocation. Mild degenerative changes of distal interphalangeal joints. Extensive ar terial calcifications. IMPRESSION: 1. No evidence of ac samantha osseous trauma. 2. 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 at 9550 Reported and signed by: Niko Steven M.D. CC: Eugene Kumar DO Technologist: MONE BECKER Trnscrd Date/Time/By: 03/28/2018 (16 53) : By: GloriaGRW Orig Print D/T: S: 03/28/2018 (0526) PAGE 1 Signed Report Sodium Iuiqp0486-57-54 05:55:00* Test Item Value Reference Range Interpretation Comments Sodium Level (test code = 2951-2) 138 136-145 [facility]Potassium Iggrs6945-04-74 05:55:00* Test Item Value Reference Range Interpretation Comments Potassium Level (test code = 2823-3) 4.4 3.5-5.1 [facility] CampusChloride Kebei6135-91-78 05:55:00* Test Item Value Reference Range Interpretation Comments Chloride Level (test code = 2075-0) 104 98-107 [facility] CampusInfluenza Virus Types A,B Antigen 2017-07-06 05:55:00* Test Item Value Reference Range Interpretation Comments Influenza Virus Types A,B Antigen (test code = 74237-1) NEGATIVE NEGATIVE [facility] CampusCarbon Dioxide Prdic8923-74-59 05:55:00* Test Item Value Reference Range Interpretation Comments Carbon Dioxide Level (test code = 2028-9) 24 22-29 [facility] CampusAnion Jhz3813-20-95 05:55:00* Test Item Value Reference Range Interpretation Comments Anion Gap (test code = 02599-5) 14.4 8-16 [facility] CampusBlood Urea Quxmiavj3033-40-13 05:55:00* Test Item Value Reference Range Interpretation Comments Blood Urea Nitrogen (test code = 3094-0) 25 7-26 [facility] CampusCreatinine2018-05-02 05:55:00* Test Item Value Reference Range Interpretation Comments Creatinine (test code = 2160-0) 1.40 0.72-1.25 H [facility] CampusBUN/Creatinine Kwfwi8997-93-27 05:55:00* Test Item Value Reference Range Interpretation Comments BUN/Creatinine Ratio (test code = 3097-3) 18 6-25 [facility] CampusEstimat Glomerular Filtration Rate 2017-07-06 05:55:00* Test Item Value Reference Range Interpretation Comments Estimat Glomerular Filtration Rate (test code = 90250-3) 52 >60 L Ranges were taken from the National Kidney Disease Education Program and the [facility] [employer] literature.Reference ranges:60 or greater: Oosmqh21-75 ( for 3 consecutive months): Chronic kidney disease 15 or less: Kidney failureThe Hospitals of Providence East CampusGlucose Cyzoo4249-81-68 05:55:00* Test Item Value Reference Range Interpretation Comments Glucose Level (test code = LOR7816) 241 74-118 H [facility] CampusCalcium Dcfhs5199-38-48 05:55:00* Test Item Value Reference Range Interpretation Comments Calcium Level (test code = 88660-8) 9.1 8.4-10.2 [facility] CampusTotal Kqctpvgmf5854-83-33 05:55:00* Test Item Value Reference Range Interpretation Comments Total Bilirubin (test code = 1975-2) 1.0 0.2-1.2 [facility] CampusAspartate Amino Transf (AST/SGOT) 2017-07-06 05:55:00* Test Item Value Reference Range Interpretation Comments Aspartate Amino Transf (AST/SGOT) (test code = Aspartate Amino Transf (AST/SGOT)) 18 5-34 [facility] CampusAlanine Aminotransferase (ALT/SGPT) 2017-07-06 05:55:00* Test Item Value Reference Range Interpretation Comments Alanine Aminotransferase (ALT/SGPT) (test code = 1742-6) 16 0-55 [facility] CampusTotal Uhncouz8774-17-89 05:55:00* Test Item Value Reference Range Interpretation Comments Total Protein (test code = 2885-2) 7.5 6.5-8.1 [facility] CampusAlbumin2018-05-02 05:55:00* Test Item Value Reference Range Interpretation Comments Albumin (test code = 1751-7) 3.3 3.5-5.0 L [facility] CampusGlobulin2018-05-02 05:55:00* Test Item Value Reference Range Interpretation Comments Globulin (test code = 99503-4) 4.2 2.3-3.5 H [facility] CampusAlbumin/Globulin Ekklg4571-93-47 05:55:00 * Test Item Value Reference Range Interpretation Comments Albumin/Globulin Ratio (test code = 1759-0) 0.8 0.8-2.0 [facility] CampusAlkaline Yznwmapbdds6539-87-29 05:55:00* Test Item Value Reference Range Interpretation Comments Alkaline Phosphatase (test code = 6768-6) 92 40-150 [facility] CampusCreatine Pusunz6865-38-68 05:55:00* Test Item Value Reference Range Interpretation Comments Creatine Kinase (test code = 2157-6) 116 30-200 [facility] CampusGroup A Streptococcus Mbhudn1526-39-56 05:55:00* Test Item Value Reference Range Interpretation Comments Group A Streptococcus Screen (test code = 80193-7) NEGATIVE NEG ATIVE [facility] CampusWhite Blood Xugbw0966-33-22 05:47:00* Test Item Value Reference Range Interpretation Comments White Blood Count (test code = 6690-2) 5.86 4.8-10.8 [facility] CampusRed Blood Ezdjd1655-26-61 05:47:00* Test Item Value Reference Range Interpretation Comments Red Blood Count (test code = 789-8) 3.57 4.3-5.7 L [facility] CampusHemoglobin2018-05-02 05:47:00* Test Item Value Reference Range Interpretation Comments Hemoglobin (test code = 20068-6) 9.3 14.0-18.0 L [facility] CampusHematocrit2018-05-02 05:47:00* Test Item Value Reference Range Interpretation Comments Hematocrit (test code = 4544-3) 30.0 38.2-49.6 L [facility] CampusMean Corpuscular Vfetvc1503-20-34 05:47:00* Test Item Value Reference Range Interpretation Comments Mean Corpuscular Volume (test code = 787-2) 84.0 81-99 [facility] CampusMean Corpuscular Fphpcbzhof4753-87-16 05:47:00* Test Item Value Reference Range Interpretation Comments Mean Corpuscular Hemoglobin (test code = 785-6) 26.1 28-32 L [facility] CampusMean Corpuscular Hemoglobin Concent 2017-07-06 05:47:00* Test Item Value Reference Range Interpretation Comments Mean Corpuscular Hemoglobin Concent (test code = 786-4) 31.0 31-35 [facility] CampusRed Cell Distribution Ehxbo7806-53-52 05:47:00* Test Item Value Reference Range Interpretation Comments Red Cell Distribution Width (test code = 36802-8) 17.6 11.7 -14.4 H [facility] CampusPlatelet Oodsm8497-50-24 05:47:00* Test Item Value Reference Range Interpretation Comments Platelet Count (test code = 777-3) 173 140-360 [facility] CampusNeutrophils (%) (Auto)2017-07-06 05:47:00 * Test Item Value Reference Range Interpretation Comments Neutrophils (%) (Auto) (test code = 00110-6) 83.1 38.7-80.0 H [facility] CampusLymphocytes (%) (Auto)2017-07-06 05:47:00 * Test Item Value Reference Range Interpretation Comments Lymphocytes (%) (Auto) (test code = 736-9) 6.7 18.0-39.1 L [facility] CampusMonocytes (%) (Auto)2017-07-06 05:47:00* Test Item Value Reference Range Interpretation Comments Monocytes (%) (Auto) (test code = 5905-5) 7.8 4.4-11.3 [facility] CampusEosinophils (%) (Auto)2017-07-06 05:47:00 * Test Item Value Reference Range Interpretation Comments Eosinophils (%) (Auto) (test code = 713-8) 1.4 0.0-6.0 [facility] CampusBasophils (%) (Auto)2017-07-06 05:47:00* Test Item Value Reference Range Interpretation Comments Basophils (%) (Auto) (test code = 706-2) 0.5 0.0-1.0 [facility] CampusIM GRANULOCYTES %2017-07-06 05:47:00* Test Item Value Reference Range Interpretation Comments IM GRANULOCYTES % (test code = IM GRANULOCYTES %) 0.5 0.0- 1.0 [facility] CampusNeutrophils # (Auto)2017-07-06 05:47:00* Test Item Value Reference Range Interpretation Comments Neutrophils # (Auto) (test code = 751-8) 4.9 2.1-6.9 [facility] CampusLymphocytes # (Auto)2017-07-06 05:47:00* Test Item Value Reference Range Interpretation Comments Lymphocytes # (Auto) (test code = 27118-5) 0.4 1.0-3.2 L [facility] CampusMonocytes # (Auto)2017-07-06 05:47:00* Test Item Value Reference Range Interpretation Comments Monocytes # (Auto) (test code = 742-7) 0.5 0.2-0.8 [facility] CampusEosinophils # (Auto)2017-07-06 05:47:00* Test Item Value Reference Range Interpretation Comments Eosinophils # (Auto) (test code = 711-2) 0.1 0.0-0.4 [facility] CampusBasophils # (Auto)2017-07-06 05:47:00* Test Item Value Reference Range Interpretation Comments Basophils # (Auto) (test code = 704-7) 0.0 0.0-0.1 [facility] CampusAbsolute Immature Granulocyte (auto 2017-07-06 05:47:00* Test Item Value Reference Range Interpretation Comments Absolute Immature Granulocyte (auto (nitin t code = Absolute Immature Granulocyte (auto) 0.03 0-0.1 [facility] CampusBlood Pfpnydt8296-13-68 08:30:00* Test Item Value Reference Range Interpretation Comments Blood Culture (test code = 76385616) NO GROWTH AFTER 5 DAYS, FINAL REPORT [facility] CampusBacteria identification in wound by zdyvjed0182-72-98 13:11:00* Test Item Value Reference Range Interpretation Comments Wound Culture (test code = 6462-6) Organism: STREPTOCOCCUS GROUP D [facility] CampusC-Reactive Mmcbhok8341-81-64 10:58:00* Test Item Value Reference Range Interpretation Comments C-Reactive Protein (test code = 1988-5) 26.6 0.0-4.9 H Performed at: - [facility] [address] [id number] Director: Anton Moran MD, Phone: [phone] Health Harris Methodist Hospital Fort Worthodium Jhmvh3021-44-49 09:04:00* Test Item Value Reference Range Interpretation Comments Sodium Level (test code = 2951-2) 138 136-145 [facility] CampusPotassium Ntcwj8931-32-41 09:04:00* Test Item Value Reference Range Interpretation Comments Potassium Level (test code = 2823-3) 4.3 3.5-5.1 [facility] CampusChloride Ejfxn8704-33-45 09:04:00* Test Item Value Reference Range Interpretation Comments Chloride Level (test code = 2075-0) 104 98-107 [facility] CampusCarbon Dioxide Mylkk6379-65-71 09:04:00* Test Item Value Reference Range Interpretation Comments Carbon Dioxide Level (test code = 2028-9) 27 22-29 [facility] CampusAnion Dbn9138-66-83 09:04:00* Test Item Value Reference Range Interpretation Comments Anion Gap (test code = 88212-9) 11.3 8-16 [facility] CampusBlood Urea Tfyosyul1745-18-95 09:04:00* Test Item Value Reference Range Interpretation Comments Blood Urea Nitrogen (test code = 3094-0) 23 7- [facility] CampusCreatinine2018-03-26 09:04:00* Test Item Value Reference Range Interpretation Comments Creatinine (test code = 2160-0) 1.36 0.72-1.25 H [facility] CampusBUN/Creatinine Sycdr9173-55-50 09:04:00* Test Item Value Reference Range Interpretation Comments BUN/Creatinine Ratio (test code = 3097-3) 17 - [facility] CampusEstimat Glomerular Filtration Rate 2017-05-30 09:04:00* Test Item Value Reference Range Interpretation Comments Estimat Glomerular Filtration Rate (test code = 29524-6) 54 >60 L Ranges were taken from the National Kidney Disease Education Program and the [facility] [employer] literature.Reference ranges:60 or greater: Eogzft59-41 ( for 3 consecutive months): Chronic kidney disease 15 or less: Kidney failureThe Hospitals of Providence East CampusGlucose Vekrl2774-55-73 09:04:00* Test Item Value Reference Range Interpretation Comments Glucose Level (test code = KKD7173) 188 74-118 H [facility] CampusCalcium Blurn2946-70-57 09:04:00* Test Item Value Reference Range Interpretation Comments Calcium Level (test code = 64473-2) 8.7 8.4-10.2 [facility] CampusHemoglobin A1c Gsfutqi8728-68-22 09:04:00 * Test Item Value Reference Range Interpretation Comments Hemoglobin A1c Percent (test code = Hemoglobin A1c Percent) 7.5 4.0-7.0 H [facility] CampusTotal Ikydsuvav0270-08-39 09:04:00* Test Item Value Reference Range Interpretation Comments Total Bilirubin (test code = 1975-2) 0.5 0.2-1.2 [facility] CampusAspartate Amino Transf (AST/SGOT) 2017-05-30 09:04:00* Test Item Value Reference Range Interpretation Comments Aspartate Amino Transf (AST/SGOT) (test code = Aspartate Amino Transf (AST/SGOT)) 17 5-34 [facility] CampusAlanine Aminotransferase (ALT/SGPT) 2017-05-30 09:04:00* Test Item Value Reference Range Interpretation Comments Alanine Aminotransferase (ALT/SGPT) (test code = 1742-6) 16 0-55 [facility] CampusTotal Fywwley8485-57-36 09:04:00* Test Item Value Reference Range Interpretation Comments Total Protein (test code = 2885-2) 7.1 6.5-8.1 [facility] CampusAlbumin2018-03-26 09:04:00* Test Item Value Reference Range Interpretation Comments Albumin (test code = 1751-7) 2.9 3.5-5.0 L [facility] CampusGlobulin2018-03-26 09:04:00* Test Item Value Reference Range Interpretation Comments Globulin (test code = 29261-7) 4.2 2.3-3.5 H [facility] CampusAlbumin/Globulin Kkulz9236-15-82 09:04:00 * Test Item Value Reference Range Interpretation Comments Albumin/Globulin Ratio (test code = 1759-0) 0.7 0.8-2.0 L [facility] CampusAlkaline Flqnwufvzaf3141-99-13 09:04:00* Test Item Value Reference Range Interpretation Comments Alkaline Phosphatase (test code = 6768-6) 82 40-150 [facility] CampusHemoglobin A1c Phyryfb7810-39-52 09:04:00 * Test Item Value Reference Range Interpretation Comments Hemoglobin A1c Percent (test code = Hemoglobin A1c Percent) 7.5 4.0-7.0 H [facility] CampusWhite Blood Orykb8227-89-16 08:35:00* Test Item Value Reference Range Interpretation Comments White Blood Count (test code = 6690-2) 6.48 4.8-10.8 [facility] CampusRed Blood Cxhod1122-63-72 08:35:00* Test Item Value Reference Range Interpretation Comments Red Blood Count (test code = 789-8) 3.23 4.3-5.7 L [facility] CampusHemoglobin2018-03-26 08:35:00* Test Item Value Reference Range Interpretation Comments Hemoglobin (test code = 88323-5) 8.4 14.0-18.0 L [facility] CampusHematocrit2018-03-26 08:35:00* Test Item Value Reference Range Interpretation Comments Hematocrit (test code = 4544-3) 27.4 38.2-49.6 L [facility] CampusMean Corpuscular Xxhaei0602-13-76 08:35:00* Test Item Value Reference Range Interpretation Comments Mean Corpuscular Volume (test code = 787-2) 84.8 81-99 [facility] CampusMean Corpuscular Dbbumkyrqr2881-31-78 08:35:00* Test Item Value Reference Range Interpretation Comments Mean Corpuscular Hemoglobin (test code = 785-6) 26.0 28-32 L [facility] CampusMean Corpuscular Hemoglobin Concent 2017-05-30 08:35:00* Test Item Value Reference Range Interpretation Comments Mean Corpuscular Hemoglobin Concent (test code = 786-4) 30.7 31-35 L [facility] CampusRed Cell Distribution Yrwsw8978-03-54 08:35:00* Test Item Value Reference Range Interpretation Comments Red Cell Distribution Width (test code = 09462-0) 15.3 11.7 -14.4 H [facility] CampusPlatelet Wotuj1360-27-56 08:35:00* Test Item Value Reference Range Interpretation Comments Platelet Count (test code = 777-3) 257 140-360 [facility] CampusNeutrophils (%) (Auto)2017-05-30 08:35:00 * Test Item Value Reference Range Interpretation Comments Neutrophils (%) (Auto) (test code = 22540-0) 77.7 38.7-80.0 [facility] CampusLymphocytes (%) (Auto)2017-05-30 08:35:00 * Test Item Value Reference Range Interpretation Comments Lymphocytes (%) (Auto) (test code = 736-9) 10.6 18.0-39.1 L [facility] CampusMonocytes (%) (Auto)2017-05-30 08:35:00* Test Item Value Reference Range Interpretation Comments Monocytes (%) (Auto) (test code = 5905-5) 9.0 4.4-11.3 [facility] CampusEosinophils (%) (Auto)2017-05-30 08:35:00 * Test Item Value Reference Range Interpretation Comments Eosinophils (%) (Auto) (test code = 713-8) 1.9 0.0-6.0 [facility] CampusBasophils (%) (Auto)2017-05-30 08:35:00* Test Item Value Reference Range Interpretation Comments Basophils (%) (Auto) (test code = 706-2) 0.3 0.0-1.0 [facility] CampusIM GRANULOCYTES %2017-05-30 08:35:00* Test Item Value Reference Range Interpretation Comments IM GRANULOCYTES % (test code = IM GRANULOCYTES %) 0.5 0.0- 1.0 [facility] CampusNeutrophils # (Auto)2017-05-30 08:35:00* Test Item Value Reference Range Interpretation Comments Neutrophils # (Auto) (test code = 751-8) 5.0 2.1-6.9 [facility] CampusLymphocytes # (Auto)2017-05-30 08:35:00* Test Item Value Reference Range Interpretation Comments Lymphocytes # (Auto) (test code = 21067-3) 0.7 1.0-3.2 L [facility] CampusMonocytes # (Auto)2017-05-30 08:35:00* Test Item Value Reference Range Interpretation Comments Monocytes # (Auto) (test code = 742-7) 0.6 0.2-0.8 [facility] CampusEosinophils # (Auto)2017-05-30 08:35:00* Test Item Value Reference Range Interpretation Comments Eosinophils # (Auto) (test code = 711-2) 0.1 0.0-0.4 [facility] CampusBasophils # (Auto)2017-05-30 08:35:00* Test Item Value Reference Range Interpretation Comments Basophils # (Auto) (test code = 704-7) 0.0 0.0-0.1 [facility] CampusAbsolute Immature Granulocyte (auto 2017-05-30 08:35:00* Test Item Value Reference Range Interpretation Comments Absolute Immature Granulocyte (auto (nitin t code = Absolute Immature Granulocyte (auto) 0.03 0-0.1 [facility] CampusBlood Tcpvdbw8691-63-13 08:05:00* Test Item Value Reference Range Interpretation Comments Blood Culture (test code = 73588090) NO GROWTH AFTER 5 DAYS, FINAL REPORT [facility] CampusInfluenza Virus Types A,B Antigen 2017-03-25 08:55:00* Test Item Value Reference Range Interpretation Comments Influenza Virus Types A,B Antigen (test code = 21822-9) NEGATIVE NEGATIVE [facility] CampusB-Type Natriuretic Nnhltfw5189-16-51 08:37:00* Test Item Value Reference Range Interpretation Comments B-Type Natriuretic Peptide (test code = 91575-4) 363.2 0-100 [facility] [id number] 08:37:00* Test Item Value Reference Range Interpretation Comments B-Type Natriuretic Peptide (test code = 42729-9) 363.2 0-100 H [facility] Kinase NQ8866-03-03 08:33:00* Test Item Value Reference Range Interpretation Comments Creatine Kinase MB (test code = 95106-1) 2.00 0.00-5.00 [facility] [id number] 08:33:00* Test Item Value Reference Range Interpretation Comments Troponin I (test code = UZN8306) 0.029 0-0.300 [facility] [id number] 08:33:00* Test Item Value Reference Range Interpretation Comments Creatine Kinase MB (test code = 56841-7) 2.00 0.00-5.00 [facility] [id number] 08:33:00* Test Item Value Reference Range Interpretation Comments Troponin I (test code = NOP8609) 0.029 0-0.300 [facility] [id number] 08:28:00* Test Item Value Reference Range Interpretation Comments Creatine Kinase (test code = 2157-6) 97 30-200 [facility] Acid [id number] 08:19:00* Test Item Value Reference Range Interpretation Comments Lactic Acid Level (test code = Lactic Acid Level) 11.4 4.5- 19.8 [facility] Dmbdg8534-87-84 08:19:00* Test Item Value Reference Range Interpretation Comments Lactic Acid Level (test code = Lactic Acid Level) 11.4 4.5- 19.8 [facility]Prothrombin [id number] 08:18:00* Test Item Value Reference Range Interpretation Comments Prothrombin Time (test code = 5902-2) 12.7 11.9-14.5 [facility]Proth[facility] Time International Ratio 2017-03-25 08:18:00* Test Item Value Reference Range Interpretation Comments Prothromb Time International Ratio (test code = 6301-6) 0.91 Oral Anticoagulant Therapy INR Values:1. Low Intensity Therapy 1.5 - 2.02 . Moderate Intensity Therapy 2.0 - 3.03. High Intensity Therapy(1) 2.5 - 3. 54. High Intensity Therapy(2) 3.0 - 4.05. Panic Value INR > 5.0 [facility]Act[facility] Partial Thromboplast Time 2017-03-25 08:18:00* Test Item Value Reference Range Interpretation Comments Activated Partial Thromboplast Time (test code = 18314-1) 31.7 23.8-35.5 [facility]Prothrombin Mozr9604-17-15 08:18:00* Test Item Value Reference Range Interpretation Comments Prothrombin Time (test code = 5902-2) 12.7 11.9-14.5 [facility]Proth[facility] Time International Ratio 2017-03-25 08:18:00* Test Item Value Reference Range Interpretation Comments Prothromb Time International Ratio (test code = 6301-6) 0.91 Oral Anticoagulant Therapy INR Values:1. Low Intensity Therapy 1.5 - 2.02 . Moderate Intensity Therapy 2.0 - 3.03. High Intensity Therapy(1) 2.5 - 3. 54. High Intensity Therapy(2) 3.0 - 4.05. Panic Value INR > 5.0 [facility] Partial Thromboplast Time 2017-03-25 08:18:00* Test Item Value Reference Range Interpretation Comments Activated Partial Thromboplast Time (test code = 86431-5) 31.7 23.8-35.5 [facility] [address] [place] [address] Patient Name: DMITRY ARMSTRONG JR MR #: [id number] : 1960 Age/Sex: 57/M Req #: [id number] Adm Physician: Ordered by: CHAY DOMÍNGUEZ MD Report #: [id number] Location: Room/Bed: Procedure: [id number] DX/CHEST 2 VIEWS Exam D ate: 07/06/17 Exam Time: 0520 REPORT STATUS: Si gned EXAM: CHEST 2 VIEWS, PA and lateral INDICATION: Cough COMPARISON: No ne FINDINGS: LINES/TUBES: Right approach PICC terminates at the expected location of the atriocaval junction. LUNGS: No consolidations or edema. PLEURA: No effusions or pneumothorax. HEART AND MEDIASTINUM: Enlargeme nt of the cardiomediastinal silhouette. BONES AND SOFT TISSUES: No acute fi ndings. IMPRESSION: No acute thoracic abnormality. Signed by: Dr. Natalio Ring M.D. on 07/06/2017 5:52 AM Dictated By: NATALIO ROMERO MD 1 Transcribed By: JOHN on 07/06/17551 COPY TO: CHAY DOMÍNGUEZ MD LOWER LEG RIGHT [place] [address] Patient Name: DMITRY ARMSTRONG JR MR #: [id number] : 1960 Age/Sex: 56/M Req #: [id number] Adm Physician: Ordered by: STACY ALLISON MD Report #: [id number] Location: ER Room/Bed: Procedure: [id number] DX/LOWER LEG RIGHT Exam Date: 05/30/17 Exam Time: 829 REPORT STATUS: Signed PROCEDURE: X-RAY RIGHT LOWER LEG COMPARISON: None. IND ICATIONS: DISTAL LOWER LEG WOUND FINDINGS: Shallow soft tissue defe ct along the postero-medial lower leg, approximately 5 cm superior to the ank le joint. No cortical erosive or destructive changes of the underlying tibial cortex. There is mild periosteal reaction along the midshaft of the tibia. 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 Osteopenic changes of the talocalcaneal complex. Ath erosclerotic vascular calcifications. Stents are noted within the anterior ti bial artery and tibioperoneal trunk. CONCLUSION: Shallow soft tiss ue ulcer along the posteromedial lower leg, without underlying cortical erosi ve or destructive change. Periosteal reaction along the midshaft of the ti simone may relate to chronic venous stasis. MRI of the right lower extremity wit h and without contrast may be obtained for further evaluation if there is strong clinical concern for chronic osteomyelitis. 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 Advanced atherosclerotic va scular disease. Dictated by: Newton Stephens M.D. on 05/30/2017 at 9:46 El ectronically approved by: Newton Stephens M.D. on 05/30/2017 at 9:46 Dictated By: NEWTON STEPHENS MD 5 COPY TO: SHILPA ALLISON MD CHEST 2 VIEWS [place] [address] Patient Name: DMITRY ARMSTRONG JR MR #: [id number] : 1960 Age/Sex: 56/M Req #: [id number] Adm Physician: Ordered by: MARY YEAGER MD Report #: [id number] Location: ER Room/Bed: Procedure: [id number] DX/CHEST 2 VIEWS Exam Date: 03/25/17 Exam Time: 0930 REPORT STATUS: Signed PROCEDURE: X-RAY CHEST, TWO VIEWS COMPARISON: 03/13/2013. INDICATIONS: COU GH, WHEEZING FINDINGS: Lung volumes are low with vascular crowding in the lung bases. No gross consolidation, pleural effusion, or pneumothorax. Stable cardiomediastinal contour with mild enlargement of the cardiac si lhouette. Pulmonary venous congestion without overt alveolar edema. Multip le median sternotomy wires and mediastinal surgical clips. No acute osseou s abnormality. CONCLUSION: Mild cardiomegaly with pulmonary venous co ngestion. No consolidative pneumonia. Dictated by: Newton Jaime on 03/25/2017 at 9:59 Electronically approved by: Newton Stephens M.D. on at 9:59 Dictated By: NEWTON STEPHENS MD Electronically Si gned By: NEWTON STEPHENS MD on 03/25/17958 Transcribed By: SUBHA on 03/25/17 COPY TO: MARY YEAGER MD
[2019-08-17 18:41] LABS: BASOPHILS % 0.3 % (0.0-1.0); EOSINOPHILS % 0.2 % (0.0-6.0); HEMATOCRIT 34.6 % (38.2-49.6); HEMOGLOBIN 10.6 g/dL (14.0-18.0); LYMPHOCYTES # (AUTO) 0.4 (1.0-3.2); LYMPHOCYTES % 4.4 % (18.0-39.1); MEAN CORPUSCULAR HEMOGLOBIN 24.9 pg (28-32); MEAN CORPUSCULAR HGB CONC 30.6 g/dL (31-35); MEAN CORPUSCULAR VOLUME 81.2 fL (81-99); MONOCYTES # (AUTO) 0.5 (0.2-0.8); MONOCYTES % 5.3 % (4.4-11.3); NEUTROPHILS # (AUTO) 8.2 (2.1-6.9); NEUTROPHILS % 89.3 % (38.7-80.0); PLATELET COUNT 228 x10e3/uL (140-360); RED BLOOD COUNT 4.26 x10e6/uL (4.3-5.7); RED CELL DISTRIBUTION WIDTH 15.6 % (11.7-14.4)
[2019-08-17 19:02] LABS: ALBUMIN 2.9 g/dL (3.5-5.0); ALBUMIN/GLOBULIN RATIO 0.6 (0.8-2.0); ANION GAP 18.4 mmol/L (8-16); CREATININE, SERUM 2.07 mg/dL (0.72-1.25); POTASSIUM 4.4 mmol/L (3.5-5.1)
[2019-08-17 19:07] LABS: CLARITY,URINE SL CLOUDY (CLEAR); COLOR,URINE YELLOW (YELLOW); KETONES,URINE NEGATIVE (NEGATIVE); LEUKOCYTE ESTERASE ,URINE NEGATIVE (NEGATIVE); NITRITE,URINE NEGATIVE (NEGATIVE); PROTEIN,URINE DIPSTICK 2+ (NEGATIVE); URINE UROBILINOGEN 0.2 mg/dL (0.2 - 1)
[2019-08-17 19:08] LABS: AMPHETAMINES SCREEN,URINE NEGATIVE (NEGATIVE); BENZODIAZEPINES SCREEN,URINE NEGATIVE (NEGATIVE); BILIRUBIN,URINE NEGATIVE (NEGATIVE); PHENCYCLIDINE SCREEN,URINE NEGATIVE (NEGATIVE)
[2019-08-17 19:08] LABS: CREATINE KINASE MB 0.5 ng/mL (0-5.0)
[2019-08-17 19:14] LABS: BACTERIA,URINE MODERATE /HPF; EPITHELIAL CELLS,URINE FEW /LPF
--- NOTE | 2019-08-17 19:55 | Diagnostic Imaging Report ---
EXAM: CHEST SINGLE (PORTABLE) DATE: 08/17/2019 7:14 PM INDICATION: Fever, cough ^Y ^ERMD ORDER ^[id number] ^1913 ^Y COMPARISON: Chest x-ray, 04/30/2019 FINDINGS: Lines and tubes: None. Right PICC has been removed since previous exam. Cardiac silhouette is prominent but stable and likely accentuated by portable technique and low lung volumes. No focal pulmonary opacity, pleural effusion or pneumothorax. Wire sternal sutures are again noted. The upper abdomen appears unremarkable. Again noted is a radiopaque density lateral to the left upper abdomen. IMPRESSION: No evidence for acute disease. Signed by: Dr. Taj Martin M.D. on 08/17/2019 7:52 PM
--- NOTE | 2019-08-17 21:09 | Diagnostic Imaging Report ---
EXAM: CT Chest WITHOUT contrast 08/17/2019 8:25 PM INDICATION: ^Y ^hypoxia ^[id number] ^2024 ^Y COMPARISON: Chest x-ray, 08/17/2019 TECHNIQUE: Chest was scanned utilizing a multidetector helical scanner from the lung apex through the level of the adrenal glands without administration of IV contrast. Absence of intravenous contrast decreases sensitivity for detection of lymphadenopathy and vascular pathology. Coronal and sagittal reformations were obtained. Routine protocol was performed. Dose modulation, iterative reconstruction, and/or weight based adjustment of the mA/kV was utilized to reduce the radiation dose to as low as reasonably achievable. IV CONTRAST: None RADIATION DOSE: Total DLP: 550.85 mGy*cm Estimated effective dose: (DLP x 0.014 x size factor) mSv COMPLICATIONS: None FINDINGS: Annotations given as (series/image number). LINES/ TUBES: There is an implanted generator in the soft tissues of the lower left chest laterally with a lead extending along the anterior surface of the sternum. LUNGS AND AIRWAYS: No focal pulmonary opacity or suspicious nodule. Trachea and main bronchi are clear. PLEURA: No pleural effusion or pneumothorax. HEART AND MEDIASTINUM: The thyroid gland is normal. No mediastinal, hilar or axillary lymphadenopathy. The heart is normal in size.. There is no pericardial effusion. There are numerous surgical clips in the mediastinum. The thoracic aorta is atherosclerotic without dilatation. Main pulmonary artery measures 2.8 cm, normal. There is extensive coronary artery calcification seen. UPPER ABDOMEN: Included portions of the unenhanced liver, spleen, pancreas, adrenals and kidneys show no evidence for focal pathology. A small gallstone is seen. The gallbladder appears distended measuring 11.9 cm in length. There is no surrounding inflammation. BONES: No acute bony abnormality. There are degenerative changes in the spine. Wire sternotomy sutures are present. SOFT TISSUES: Superficial surrounding soft tissue shows a ventral hernia containing fat below the sternum. There is a rounded soft tissue density with calcification adjacent to this hernia likely representing subcutaneous fat necrosis. IMPRESSION: 1. No pulmonary consolidation or suspicious nodule. No pleural effusion or pneumothorax. 2. Extensive coronary artery calcification. 3. Cholelithiasis with distention of the gallbladder. No surrounding inflammatory stranding is seen. Signed by: Dr. Taj Martin M.D. on 08/17/2019 9:05 PM
--- NOTE | 2019-08-17 22:06 | NUR ---
nourishment provided to patient
[2019-08-17 23:58] LABS: CREATINE KINASE 50 IU/L (30-200)
[2019-08-18 00:09] LABS: CREATINE KINASE MB < 1.00 ng/mL (0-4.3)
[2019-08-18 00:33] VITALS: BP 112/74
== END 2019-08-18 00:59 | disposition home or self-care (01) ==
LOC: ER 17:43
DX: R50.9 Fever, unspecified (principal); R06.00 Dyspnea, unspecified; Z11.59 Encounter for screening for other viral diseases; K80.20 Calculus of gallbladder without cholecystitis without obstruction
CPT/HCPCS: 36415; 71045; 71250; 80053; 80307; 80320; 81001; 82550; 82553; 83605; 83880; 84484; 85025; 87040; 87635; 99284; J2543

== ENCOUNTER 2019-09-03 07:03 | Emergency (ER) | payer MEDICARE ==
[~2019-09-03] VITALS: Ht 188 cm; Wt 124.7 kg
--- NOTE | 2019-09-03 08:06 | Emergency Department Note ---
History of Present Illnes History of Present Illness Chief Complaint: General Medicine Complaints History of Present Illness This is a 59 year old male Patient in from home with complaints of a chronic wound to the plantar surface of his right foot stump. Patient has a previous TMA. Wound appears dry and does not appear infected. Patient is afebrile in triage. No redness noted to the wound or surrounding tissues on his foot. Patient is under the care of wound care. Historian: Patient Arrival Mode: Car Canoe Maker Required: No Onset (how long ago): week(s) Onset quality: gradual Timing of current episode: constant Chronicity: chronic Context: Denies recent illness Relieving factors: none Exacerbating factors: none Associated symptoms: Reports denies other symptoms Treatments prior to arrival: none Past Medical/Family History Physician Review I have reviewed the patient's past medical and family history. Any updates have been documented here. Past Medical History Recent Fever: No Clinical Suspicion of Infectio: No New/Unexplained Change in Ment: No Past Medical History: Hypertension, Diabetes, CHF, CAD, Hyperlipedemia Other Medical History: DIABETIC WOUND OSTEOMYLITIS Past Surgical History: Knee Replacement Other Surgery: RIGHT FOOT AMPUTATION Social History Smoking Cessation: Never Smoker Counseling Performed: No Alcohol Use: None Any Illegal Drug Use: No TB Exposure/Symptoms: No Physically hurt or threatened: No Other Last Tetanus: UTD Any Pre-Existing Lines (PICC,: No Is patient up to date on immun: Yes Last Flu: UTD Last Pneumovax: UTD Review of Systems Review of Systems Constitutional: Reports no symptoms EENTM: Reports no symptoms Cardiovascular: Reports no symptoms Respiratory: Reports no symptoms Gastrointestinal: Reports no symptoms Genitourinary: Reports no symptoms Musculoskeletal: Reports no symptoms Integumentary: Reports no symptoms Neurological: Reports no symptoms Psychological: Reports no symptoms Endocrine: Reports no symptoms Hematological/Lymphatic: Reports no symptoms Physical Exam Related Data Allergies: Coded Allergies: No Known Allergies (Unverified , 02/05/19) Triage Vital Signs Vital Signs Date Time Temp Pulse Resp B/P (MAP) Pulse Ox O2 Delivery O2 Flow Rate FiO2 09/03/19 07:19 97.9 87 17 115/80 98 Vital signs reviewed: Yes Physical Exam CONSTITUTIONAL Constitutional: Present well-developed, Present well-nourished HENT HENT: Present normocephalic, Present atraumatic, Present oropharynx clear/moist, Present nose normal HENT L/R: Present left ext ear normal, Present right ext ear normal EYES Eyes: Reports PERRL, Reports conjunctivae normal NECK Neck: Present ROM normal PULMONARY Pulmonary: Present effort normal, Present breath sounds normal CARDIOVASCULAR Cardiovascular: Present regular rhythm, Present heart sounds normal, Present capillary refill normal, Present normal rate GASTROINTESTINAL Abdominal: Present soft, Present nontender, Present bowel sounds normal GENITOURINARY Genitourinary: Present exam deferred SKIN Skin: Present other (2 ulcerations on right heel, both packed with W-D, one posterior heel & 1 plantar surface of heel - both look good with good granulation tissue, no erythema no discharge, no evid of infection) MUSCULOSKELETAL Musculoskeletal: Present ROM normal NEUROLOGICAL Neurological: Present alert, Present oriented x 3, Present no gross motor or sensory deficits PSYCHOLOGICAL Psychological: Present mood/affect normal, Present judgement normal Assessment & Plan Medical Decision Making MDM no need for studies in ER - will DC with Bactrim F/U wound care and PCP Reassessment Reassessment DC with Bactrim F/U wound care and PCP Assessment & Plan Final Impression: (1) Diabetic foot ulcers Depart Disposition: HOME, SELF-CARE Last Vital Signs Date Time Temp Pulse Resp B/P (MAP) Pulse Ox O2 Delivery O2 Flow Rate FiO2 09/03/19 07:19 97.9 87 17 115/80 98 Home Meds Active Scripts Furosemide (LASIX) 40 Mg Tablet, 40 MG PO DAILY for 10 Days, #30 TAB Prov:SENIA BAKER, 08/23/18 Reported Medications Ferrous Sulfate (FERROUS SULFATE) 324 Mg Tablet.dr, 324 MG PO BID 02/06/19 Folic Acid (FOLIC ACID) 0.4 Mg Tablet, 1 MG PO DAILY 02/06/19 Insulin Detemir (LEVEMIR) 100 Unit/1 Ml Vial, 36 HS 02/06/19 Potassium Chloride* (K DUR*) 10 Meq Tabcr, 10 MEQ PO DAILY 02/06/19 Clopidogrel Bisulfate* (PLAVIX) 75 Mg Tablet, 75 MG PO DAILY 12/23/12 Simvastatin (SIMVASTATIN) 40 Mg Tablet, 40 MG PO HS 12/23/12 Enalapril Maleate (VASOTEC) 5 Mg Tablet, 5 MG PO BID 07/05/12 Pioglitazone Hcl (ACTOS) 45 Mg Tablet, 45 MG PO DAILY 07/05/12 LATOYA CAMPO MD Sep 03, 2019 08:06
== END 2019-09-03 08:51 | disposition home or self-care (01) ==
LOC: ER 07:46
DX: E11.621 Type 2 diabetes mellitus with foot ulcer (principal); I10 Essential (primary) hypertension; I50.9 Heart failure, unspecified; E78.5 Hyperlipidemia, unspecified; I25.10 Atherosclerotic heart disease of native coronary artery without angina pectoris; Z89.431 Acquired absence of right foot
CPT/HCPCS: 99283

== ENCOUNTER 2020-03-12 14:57 | Emergency (ER) | payer MEDICARE ==
[~2020-03-12] VITALS: Ht 188 cm; Wt 124.7 kg
[2020-03-12 16:05] LABS: BASOPHILS % 0.6 % (0.0-1.0); EOSINOPHILS # (AUTO) 0.1 (0.0-0.4); EOSINOPHILS % 2.8 % (0.0-6.0); HEMATOCRIT 28.9 % (38.2-49.6); HEMOGLOBIN 8.7 g/dL (14.0-18.0); LYMPHOCYTES # (AUTO) 0.8 (1.0-3.2); LYMPHOCYTES % 17.9 % (18.0-39.1); MEAN CORPUSCULAR HEMOGLOBIN 24.2 pg (28-32); MEAN CORPUSCULAR HGB CONC 30.1 g/dL (31-35); MEAN CORPUSCULAR VOLUME 80.3 fL (81-99); MONOCYTES # (AUTO) 0.4 (0.2-0.8); MONOCYTES % 9.4 % (4.4-11.3); NEUTROPHILS # (AUTO) 3.2 (2.1-6.9); NEUTROPHILS % 69.1 % (38.7-80.0); PLATELET COUNT 218 x10e3/uL (140-360); RED CELL DISTRIBUTION WIDTH 17.6 % (11.7-14.4)
[2020-03-12 16:13] LABS: INR 1.19; PROTHROMBIN TIME 15.9 seconds (11.9-14.5)
[2020-03-12 16:14] LABS: PARTIAL THROMBOPLASTIN TIME 34.9 seconds (23.8-35.5)
[2020-03-12 16:24] LABS: ALBUMIN 2.7 g/dL (3.5-5.0); ALBUMIN/GLOBULIN RATIO 0.5 (0.8-2.0); ANION GAP 14.1 mmol/L (8-16); CALCIUM 8.1 mg/dL (8.4-10.2); CREATININE, SERUM 1.28 mg/dL (0.72-1.25); MAGNESIUM 1.7 MG/DL (1.3-2.1); POTASSIUM 4.1 mmol/L (3.5-5.1)
[2020-03-12 16:30] LABS: CREATINE KINASE MB 1.5 ng/mL (0-5.0)
[2020-03-12] MEDS ORDERED: FUROSEMIDE INJ 10 MG/ML 4 ML VIAL IV ONE (17:15)
== END 2020-03-12 17:38 | disposition home or self-care (01) ==
LOC: ER 15:25
DX: J40 Bronchitis, not specified as acute or chronic (principal); I11.0 Hypertensive heart disease with heart failure; I50.9 Heart failure, unspecified; E11.9 Type 2 diabetes mellitus without complications; I25.10 Atherosclerotic heart disease of native coronary artery without angina pectoris; E78.5 Hyperlipidemia, unspecified; Z89.431 Acquired absence of right foot
CPT/HCPCS: 36415; 71045; 80053; 82550; 82553; 83735; 83880; 84484; 85025; 85610; 85730; 93005; 99284; J1940; U0002